=== PATIENT | female | born 1970 | race Caucasian/White ===

== ENCOUNTER 2023-03-02 18:44 | Inpatient (IN) ==
--- NOTE | 2023-03-02 19:01 | Emergency Department Note ---
Impression & Plan Multiple sclerosis, Facial droop, Hypokalemia ED Provider Note NAME: TIP GLORIA AGE: 52 SEX: F : 1970 ARRIVES VIA: Walk-In INFORMANT: Patient ED PROVIDER(S): Manan Wilcox DO CHIEF COMPLAINT: right facial droop HPI: Patient is a 52-year-old female with a past medical history of MS who follows with Dr. Pascal that presents to the ER for right-sided facial droop which started today around 2 PM. She notes she has had a ringing in the buzzing in her right ear for the past 2 days. She does have a headache on the right side as well. Denies any change or loss of vision. She notes her dropfoot on the left is worse. No chest pain or shortness of breath. No nausea, vomiting or but does admit to intermittent diarrhea. No dysuria, urgency, or frequency. No other exacerbating or remitting factors. PAST MEDICAL HISTORY:See Below PAST SURGICAL HISTORY:See Below FAMILY HISTORY:See Below SOCIAL HISTORY:See Below HOME MEDICATIONS:See Below ALLERGIES:See Below VITALS:See Below PHYSICAL EXAMINATION: GENERAL: Sitting up in bed, alert, well appearing, well nourished, no distress, non-toxic EYE EXAM: normal conjunctiva. PERRL and EOM's grossly intact. OROPHARYNX: no exudate, no erythema, lips, buccal mucosa, and tongue normal and mucous membranes are moist NECK: supple, no nuchal rigidity, no adenopathy, non-tender LUNGS: Clear to auscultation. Normal chest wall mechanics HEART: no murmurs, S1 normal and S2 normal ABDOMEN: abdomen soft, non-tender, normo-active bowel sounds, no masses, no rebound or guarding. BACK: Back is symmetrical on inspection and there is no deformity, no midline tenderness, no CVA tenderness. SKIN: no rashes and no bruising UPPER EXTREMITIES: upper extremities are grossly normal. LOWER EXTREMITIES: No pitting edema. NEURO EXAM: Normal sensorium, cranial nerves II-XII with a right-sided facial droop, able to lift forehead and eyebrows symmetrically and able to close eyes, normal speech, no weakness of arms, no weakness within the legs with the exception of plantar and dorsiflexion of the left ankle she is a 3 out of 5. No drift. Finger to nose intact. Gross sensation intact. MEDICAL DECISION MAKING: Patient is a 52-year-old female who presents ER for right-sided facial droop which started at 2 PM today. She also notes that she is having weakness in the left foot with plantar dorsiflexion which is gradually getting worse. She does have a history of antibiotics. On exam she is otherwise neurologically intact. She is out of the window consequently stroke alert was not called. External records were reviewed. Labs show no significant leukocytosis or anemia. BMP with mild hypokalemia 3.3. LFTs bilirubin was unremarkable. Troponin was negative. Lyme and COVID were negative. Discussed with neurology which was delayed as they had a stroke alert. They agreed with the work-up and further evaluation and admission. Discussed with Dr. Harris for admission. Triage Nursing notes reviewed. Limited review of prior medical records performed Vital Signs: reviewed and remarkable for no significant abnormalities Differential diagnosis: Differential Diagnosis includes but is not limited to ischemic Stroke, hemorrhagic stroke, bells palsy, mass, neoplasm, migraine headache, seizure, subarachnoid hemorrhage, TIA, and transient global amnesia. ER treatment provided: See below Diagnostics interpreted by me include EKG and cardiac monitoring as listed below: -Cardiac Monitoring: An order was placed for continuous cardiac monitoring. The monitor shows a rate of 80 with sinus rhythm. -ECG: Sinus rhythm rate 84 Left axis No PVCs QTc 515 -Laboratory studies:Interpreted by me as stated above in MDM and shown below. Imaging studies: Xrays: As interpreted by me: Portable AP upright 1 view of the chest shows no pneumonia CTs show: CT angios of the head and neck were negative Consultation(s): As described in MDM Procedures:none Critical Care: None Past Med/Surg History Social History Smoking Status: Former smoker Preferred Language: Turkmen Feels Safe at Home: Yes Allergies Allergies Allergy/AdvReac Type Severity Reaction Status Date / Time adhesive tape Allergy Unknown Unknown Verified 03/02/23 21:03 cephalexin Allergy Unknown Unknown Verified 03/02/23 21:03 ciprofloxacin Allergy Unknown Unknown Verified 03/02/23 21:03 diazepam Allergy Unknown Unknown Verified 03/02/23 22:38 latex Allergy Unknown Unknown Verified 03/02/23 21:03 prednisone Allergy Unknown Unknown Verified 03/02/23 22:38 red dye Allergy Unknown Unknown Verified 03/02/23 21:03 Home Meds Home Medications Medication Instructions Recorded Confirmed Apple Cider Vinegar Liquid 2 tbsp PO QAM 03/02/23 03/02/23 cholecalciferol (vitamin D3) 50 50 mcg PO QAM 03/02/23 03/02/23 mcg (2,000 unit) tablet cyanocobalamin (vitamin B-12) 5,000 mcg sublingual QAM 03/02/23 03/02/23 5,000 mcg/mL sublingual drops (Vitamin B-12) loratadine 10 mg tablet (Claritin) 10 mg PO QAM 03/02/23 03/02/23 modafinil 100 mg tablet 100 mg PO QAM 03/02/23 03/02/23 nortriptyline 25 mg capsule 25 mg PO HS 03/02/23 03/02/23 ocrelizumab 30 mg/mL intravenous 0 mg IV .EVERY 6 MONTHS 03/02/23 03/02/23 solution (Ocrevus) omeprazole 40 mg capsule,delayed 40 mg PO QAM 03/02/23 03/02/23 release prenat.vits,adolph,ssz-wyeo-mbtlg 1 tab PO QAM 03/02/23 03/02/23 ropinirole 2 mg tablet 2 mg PO UD 03/02/23 03/02/23 rosuvastatin 20 mg tablet 20 mg PO HS 03/02/23 03/02/23 sumatriptan succinate 50 mg tablet 50 mg PO UD PRN Migraine Headache 03/02/23 03/02/23 topiramate 200 mg tablet 200 mg PO UD 03/02/23 03/02/23 Results & Data (ED) Vital Signs Vital Signs - 24 hr 03/02/23 18:46 03/02/23 19:34 03/02/23 20:16 Temperature 36.2 C L Temperature Source Temporal Artery Scan Pulse Rate 99 H 85 81 Pulse Rhythm Regular Pulse Strength Normal Respiratory Rate 20 18 Respiratory Effort / Characteristics Non-Labored Spontaneous Respiratory Depth Normal Respiratory Pattern Regular Blood Pressure 142/104 H 121/78 Blood Pressure Mean 116 92 Blood Pressure Position Sitting Pulse Oximetry 99 95 Oxygen Delivery Method Room Air Room Air Sepsis Recent Fever Within 48 Hours No Sepsis New/Unexplained Change in Mental Status No Sepsis Action Taken by Nursing No Action Required 03/02/23 21:55 Temperature Temperature Source Pulse Rate 81 Pulse Rhythm Pulse Strength Respiratory Rate 18 Respiratory Effort / Characteristics Respiratory Depth Respiratory Pattern Blood Pressure 110/75 Blood Pressure Mean 86 Blood Pressure Position Pulse Oximetry 100 Oxygen Delivery Method Room Air Sepsis Recent Fever Within 48 Hours Sepsis New/Unexplained Change in Mental Status Sepsis Action Taken by Nursing Laboratory Data 03/02/23 19:14 03/02/23 19:14 Lab Results 03/02/23 03/02/23 03/02/23 Range/Units 19:14 19:14 19:14 WBC 6.36 (4.8-10.8) K/ul RBC 3.93 L (4.20-5.40) M/uL Hgb 13.0 (12.0-16.0) g/dl Hct 36.3 L (37.0-47.0) % MCV 92.4 (80.0-100.0) fL MCH 33.1 (25.0-34.0) pg MCHC 35.8 (32.0-36.0) g/dL RDW Std Deviation 39.1 (36.4-46.3) fL RDW Coeff of Pina 11.4 L (11.5-14.5) % Plt Count 283 (130-400) K/uL MPV 10.3 (9.4-12.4) fL Immature Gran % (Auto) 0.2 % Neut % (Auto) 55.5 % Lymph % (Auto) 34.3 % [place] % (Auto) 9.1 % Eos % (Auto) 0.6 % Baso % (Auto) 0.3 % Neut # (Auto) 3.53 (1.40-6.50) K/uL Lymph # (Auto) 2.18 (1.2-3.4) K/uL [place] # (Auto) 0.58 (0.11-0.59) K/uL Eos # (Auto) 0.04 (0-0.50) K/uL Baso # (Auto) 0.02 (0-0.2) K/uL Immature Gran # (Auto) 0.01 (0.01-0.20) K/uL PT 12.4 H (9.0-12.0) Seconds INR 1.1 (0.9-1.1) APTT 25.9 (21.0-31.0) Seconds PTT Ratio 0.9 Sodium 135 L (136-145) mmol/L Potassium 3.3 L (3.5-5.1) mmol/L Chloride 105 (98-107) mmol/L Carbon Dioxide 22 (21-32) mmol/L Anion Gap 8 (3-11) BUN 7 (6-23) mg/dl Creatinine 0.77 (0.6-1.2) mg/dl Est Cr Clr Drug Dosing 72.3 ml/min Est GFR ( Amer) 104.3 ml/min Est GFR (Non-Af Amer) 90.0 ml/min BUN/Creatinine Ratio 9.1 L (10-20) Glucose 100 H (70-99(Fasting)) mg/dl POC Glucose (70-99) mg/dl Calcium 9.2 (8.6-10.3) mg/dl Magnesium 2.0 (1.7-2.4) mg/dl Total Bilirubin 0.3 (0.2-1.0) mg/dl AST 18 (13-39) U/L ALT 18 (7-52) U/L Alkaline Phosphatase 84 (34-104) U/L Troponin I High Sens < 2.3 (0-14) pg/ml Total Protein 6.9 (6.0-8.3) gm/dl Albumin 4.4 (3.4-5.0) gm/dl Globulin 2.5 (2.5-4.0) gm/dl Albumin/Globulin Ratio 1.8 (0.9-2) Lyme Disease IgG Ab (Negative) Lyme Disease IgM Ab (Negative) SARS-CoV-2, RNA, NAAT (NEGATIVE) 03/02/23 03/02/23 03/02/23 Range/Units 19:14 19:40 21:25 WBC (4.8-10.8) K/ul RBC (4.20-5.40) M/uL Hgb (12.0-16.0) g/dl Hct (37.0-47.0) % MCV (80.0-100.0) fL MCH (25.0-34.0) pg MCHC (32.0-36.0) g/dL RDW Std Deviation (36.4-46.3) fL RDW Coeff of Pina (11.5-14.5) % Plt Count (130-400) K/uL MPV (9.4-12.4) fL Immature Gran % (Auto) % Neut % (Auto) % Lymph % (Auto) % [place] % (Auto) % Eos % (Auto) % Baso % (Auto) % Neut # (Auto) (1.40-6.50) K/uL Lymph # (Auto) (1.2-3.4) K/uL [place] # (Auto) (0.11-0.59) K/uL Eos # (Auto) (0-0.50) K/uL Baso # (Auto) (0-0.2) K/uL Immature Gran # (Auto) (0.01-0.20) K/uL PT (9.0-12.0) Seconds INR (0.9-1.1) APTT (21.0-31.0) Seconds PTT Ratio Sodium (136-145) mmol/L Potassium (3.5-5.1) mmol/L Chloride (98-107) mmol/L Carbon Dioxide (21-32) mmol/L Anion Gap (3-11) BUN (6-23) mg/dl Creatinine (0.6-1.2) mg/dl Est Cr Clr Drug Dosing ml/min Est GFR ( Amer) ml/min Est GFR (Non-Af Amer) ml/min BUN/Creatinine Ratio (10-20) Glucose (70-99(Fasting)) mg/dl POC Glucose 103 H (70-99) mg/dl Calcium (8.6-10.3) mg/dl Magnesium (1.7-2.4) mg/dl Total Bilirubin (0.2-1.0) mg/dl AST (13-39) U/L ALT (7-52) U/L Alkaline Phosphatase (34-104) U/L Troponin I High Sens (0-14) pg/ml Total Protein (6.0-8.3) gm/dl Albumin (3.4-5.0) gm/dl Globulin (2.5-4.0) gm/dl Albumin/Globulin Ratio (0.9-2) Lyme Disease IgG Ab Negative (Negative) Lyme Disease IgM Ab Negative (Negative) SARS-CoV-2, RNA, NAAT NEGATIVE (NEGATIVE) Administered Medications Potassium Chloride/Sodium Chloride (Normal Saline W/20 Meq Kcl) 20 meq in 1,000 mls @ 100 mls/hr IV .Q10H STA; Protocol Stop: 03/03/23 07:42 Last Admin: 03/02/23 21:53 Dose: 100 mls/hr Documented By: CHRIS Discontinued Medications Ioversol (Optiray 320 500ml) 118 ml IV ONCE ONE Stop: 03/02/23 19:30 Last Admin: 03/02/23 19:30 Dose: 118 ml Documented By: HARRISON Ketorolac Tromethamine (Ketorolac Tromethamine 15 Mg/Ml Vial) 15 mg IV NOW ONE Stop: 03/02/23 20:59 Last Admin: 03/02/23 21:00 Dose: 15 mg Documented By: CHRSI Imaging Data Radiologist's Impression: Head CT 03/02/23 18:59 CT angio head w con, CT head/brain wo con, CT angio neck with con CLINICAL HISTORY: 52 years-old Female with neuro deficit, acute stroke s uspected. Acute strokelike symptoms COMPARISON STUDY: None TECHNIQUE: Unenhanced axial CT scan of the brain is performed. Subsequently, following the IV administration of 118 cc of Optiray, CT angiogram of the head and neck was performed from the aortic arch to the skull apex. Images are reviewed in the axial, sagittal, and coronal planes. 3-D MIPS images are created and assessed. IV contrast was administered without complication. All measur ements were obtained according to NASCET criteria. A dose lowering technique was utilized adhering to the principles of ALARA. CT DOSE: 990.40 mGy.cm FINDINGS: CT BRAIN: There is no acute intracranial hemorrhage, midline shift, hydrocephalus, intracranial mass, territorial ischemia or abnormal extra-axial collections. No abnormal intra-axial or extra-axial enhancement. Mastoid air cells and middle ear cavities are clear. Mild nonspecific white matter hypodensities. Prior suboccipital craniectomy. No calvarial fracture. Paranasal sinuses are clear. CT ANGIOGRAM OF THE HEAD AND NECK: Ectasia of the ascending thoracic aorta, 3.8 cm. Common carotid arteries are patent. Atheromatous plaque of the carotid bulbs results in less than 50% stenosis bilaterally, right greater than left. The bilateral anterior and middle cerebral arteries are also patent. The vertebrobasilar system and posterior cerebral arteries are widely patent. 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 There is no aneurysm, high-grade stenosis, or proximal branch occlusion identified. Dural sinuses appear patent. Lung apices are clear. Unremarkable soft tissues. Mastoid air cells are clear. No acute fracture. IMPRESSION: 1. No acute intracranial abnormality. 2. Prior suboccipital craniectomy. 3. Unremarkable CTA of the head and neck. 4. Fenestrated basilar artery. ACT 112: Negative or not required by law. The above report was generated using voice recognition software. It may contain grammatical, syntax or spelling errors. Electronically signed by: Nitin Booker M.D. 03/02/2023 7:44 PM Head CTA 03/02/23 18:59 CT angio head w con, CT head/brain wo con, CT angio neck with con CLINICAL HISTORY: 52 years-old Female with neuro deficit, acute stroke suspected. Acute strokelike symptoms COMPARISON STUDY: None TECHNIQUE: Unenhanced axial CT scan of the brain is performed. Subsequently, following the IV administration of 118 cc of Optiray, CT angiogram of the head and neck was performed from the aortic arch to the skull apex. Images are reviewed in the axial, sagittal, and coronal planes. 3-D MIPS images are created and assessed. IV contrast was administered without complication. All measurements were obtained according to NASCET criteria. A dose lowering technique was utilized adhering to the principles of ALARA. CT DOSE: 990.40 mGy.cm FINDINGS: CT BRAIN: There is no acute intracranial hemorrhage, midline shift, hydrocephalus, intracranial mass, territorial ischemia or abnormal extra-axial collections. No abnormal intra-axial or extra-axial enhancement. Mastoid air cells and middle ear cavities are clear. Mild nonspecific white matter hypodensities. Prior suboccipital craniectomy. No calvarial fracture. Paranasal sinuses are clear. CT ANGIOGRAM OF THE HEAD AND NECK: Ectasia of the ascending thoracic aorta, 3.8 cm. Common carotid arteries are patent. Atheromatous plaque of the carotid bulbs results in less than 50% stenosis bilaterally, right greater than left. The bilateral anterior and middle cerebral arteries are also patent. The vertebrobasilar system and posterior cerebral arteries are widely patent. 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 There is no aneurysm, high-grade stenosis, or proximal branch occlusion identified. Dural sinuses appear patent. Lung apices are clear. Unremarkable soft tissues. Mastoid air cells are clear. No acute fracture. IMPRESSION: 1. No acute intracranial abnormality. 2. Prior suboccipital craniectomy. 3. Unremarkable CTA of the head and neck. 4. Fenestrated basilar artery. ACT 112: Negative or not required by law. The above report was generated using voice recognition software. It may contain grammatical, syntax or spelling errors. Electronically signed by: Nitin Booker M.D. 03/02/2023 7:44 PM Neck CTA 03/02/23 18:59 CT angio head w con, CT head/brain wo con, CT angio neck with con CLINICAL HISTORY: 52 years-old Female with neuro deficit, acute stroke suspe cted. Acute strokelike symptoms COMPARISON STUDY: None TECHNIQUE: Unenhanced axial CT scan of the brain is performed. Subsequently, following the IV administration of 118 cc of Optiray, CT angiogram of the head and neck was performed from the aortic arch to the skull apex. Images are reviewed in the axial, sagittal, and coronal planes. 3-D MIPS images are created and assessed. IV contrast was administered without complication. All measuremen ts were obtained according to NASCET criteria. A dose lowering technique was utilized adhering to the principles of ALARA. CT DOSE: 990.40 mGy.cm FINDINGS: CT BRAIN: There is no acute intracranial hemorrhage, midline shift, hydrocephalus, intracranial mass, territorial ischemia or abnormal extra-axial collections. No abnormal intra-axial or extra-axial enhancement. Mastoid air cells and middle ear cavities are clear. Mild nonspecific white matter hypodensities. Prior suboccipital craniectomy. No calvarial fracture. Paranasal sinuses are clear. CT ANGIOGRAM OF THE HEAD AND NECK: Ectasia of the ascending thoracic aorta, 3.8 cm. Common carotid arteries are patent. Atheromatous plaque of the carotid bulbs results in less than 50% stenosis bilaterally, right greater than left. The bilateral anterior and middle cerebral arteries are also patent. The vertebrobasilar system and posterior cerebral arteries are widely patent. 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 There is no aneurysm, high-grade stenosis, o r proximal branch occlusion identified. Dural sinuses appear patent. Lung apices are clear. Unremarkable soft tissues. Mastoid air cells are clear. No acute fracture. IMPRESSION: 1. No acute intracranial abnormality. 2. Prior suboccipital craniectomy. 3. Unremarkable CTA of the head and neck. 4. Fenestrated basilar artery. ACT 112: Negative or not required by law. The above report was generated using voice recognition software. It may contain grammatical, syntax or spelling errors. Electronically signed by: Nitin Booker M.D. 03/02/2023 7:44 PM Discharge Plan Visit Data Chief Complaint: Neuro Symptoms/Deficit Stated Complaint: RINGING IN EARS, HEAD PAIN, ED Provider: Manan Wilcox Discharge Problem: Multiple sclerosis, Facial droop, Hypokalemia Patient Disposition: Admitted As Inpatient Discharge Instructions Interventions: ED Discharge Assessment Last Done: 03/02/23 23:14 Forms Stand Alone Forms: [facility] Prescriptions Prescriptions: No Action omeprazole 40 mg capsule,delayed release(DR/EC) 40 mg PO QAM nortriptyline 25 mg capsule 25 mg PO HS modafinil 100 mg tablet 100 mg PO QAM rosuvastatin 20 mg tablet 20 mg PO HS cholecalciferol (vitamin D3) 50 mcg (2,000 unit) tablet 50 mcg PO QAM sumatriptan succinate 50 mg tablet 50 mg PO UD PRN (Reason: Migraine Headache) ropinirole 2 mg tablet 2 mg PO UD Rx Instructions: take 2 mg at 3 pm and then again at bedtime topiramate 200 mg tablet 200 mg PO UD Rx Instructions: take 1 tablet in the morning and take 2 tablets at bedtime loratadine [Claritin] 10 mg Tablet 10 mg PO QAM Ocrevus 30 mg/mL Solution 0 mg IV .EVERY 6 MONTHS Rx Instructions: dose unknown Apple Cider Vinegar Liquid 2 tbsp PO QAM Vitamin Tablet 1 tab PO QAM Vitamin B-12 5,000 mcg/mL Drops 5,000 mcg SUBLINGUAL QAM Referrals Referrals: Saundra Nicholson C.R.N.P. [Primary Care Provider] -
[2023-03-02] MEDS ORDERED: OPTIRAY 320 500ml IV ONE (19:29)
[2023-03-02 19:34] LABS: Basophils # (auto) 0.02 K/uL (0-0.2); Basophils % (auto) 0.3 %; Eosinophils # (auto) 0.04 K/uL (0-0.50); Eosinophils % (auto) 0.6 %; Hematocrit (blood only) 36.3 % (37.0-47.0); Immature Granulocytes # (auto) 0.01 K/uL (0.01-0.20); Immature Granulocytes % (auto) 0.2 %; Lymphocytes # (auto) 2.18 K/uL (1.2-3.4); Lymphocytes % (auto) 34.3 %; Mean Corpuscular Hemoglobin 33.1 pg (25.0-34.0); Mean Corpuscular Hgb Conc 35.8 g/dL (32.0-36.0); Mean Corpuscular Volume 92.4 fL (80.0-100.0); Mean Platelet Volume 10.3 fL (9.4-12.4); Monocytes # (auto) 0.58 K/uL (0.11-0.59); Monocytes % (auto) 9.1 %; Neutrophils # (auto) 3.53 K/uL (1.40-6.50); Neutrophils % (auto) 55.5 %; Platelet Count 283 K/uL (130-400); RDW Coefficient of Variation 11.4 % (11.5-14.5); RDW Standard Deviation 39.1 fL (36.4-46.3); Red Blood Count 3.93 M/uL (4.20-5.40); White Blood Count 6.36 K/ul (4.8-10.8)
--- NOTE | 2023-03-02 19:46 | CT Scan Report ---
CT angio head w con, CT head/brain wo con, CT angio neck with con CLINICAL HISTORY: 52 years-old Female with neuro deficit, acute stroke suspected. Acute strokelike symptoms COMPARISON STUDY: None TECHNIQUE: Unenhanced axial CT scan of the brain is performed. Subsequently, following the IV adminis tration of 118 cc of Optiray, CT angiogram of the head and neck was performed from the aortic arch to the skull apex. Images are reviewed in the axial, sagittal, and coronal planes. 3-D MIPS images are created and assessed. IV contrast was administered without complication. All measurements were obtain ed according to NASCET criteria. A dose lowering technique was utilized adhering to the principles of ALARA. CT DOSE: 990.40 mGy.cm FINDINGS: CT BRAIN: There is no acute intracranial hemorrhage, midline shift, hydrocephalus, intracranial mass, territori al ischemia or abnormal extra-axial collections. No abnormal intra-axial or extra-axial enhancement. Mastoid air cells and middle ear cavities are clear. Mild nonspecific white matter hypodensities. Pr ior suboccipital craniectomy. No calvarial fracture. Paranasal sinuses are clear. CT ANGIOGRAM OF THE HEAD AND NECK: Ectasia of the ascending thoracic aorta, 3.8 cm. Common carotid arteries are patent. Atheromatous ami que of the carotid bulbs results in less than 50% stenosis bilaterally, right greater than left. The bilateral anterior and middle cerebral arteries are also patent. The vertebrobasilar system and poste rior cerebral arteries are widely patent. Fenestrated basilar artery. origin of the left director of diversity and inclusion ior cerebral artery. There is no aneurysm, high-grade stenosis, or proximal branch occlusion identifi ed. Dural sinuses appear patent. Lung apices are clear. Unremarkable soft tissues. Mastoid air cells are clear. No acute fracture. IMPRESSION: 1. No acute intracranial abnormality. 2. Prior suboccipital craniectomy. 3. Unremarkable CTA of the head and neck. 4. Fenestrated basilar artery. ACT 112: Negative or not required by law. The above report was generated using voice recognition software. It may contain grammatical, syntax o r spelling errors. Electronically signed by: Nitin Booker M.D. 03/02/2023 7:44 PM
[2023-03-02 19:47] LABS: Alanine Aminotransferase 18 U/L (7-52); Albumin Globulin Ratio 1.8 (0.9-2); Albumin Level 4.4 gm/dl (3.4-5.0); Alkaline Phosphatase 84 U/L (34-104); Anion Gap 8 (3-11); Aspartate Aminotransferase 18 U/L (13-39); BUN Creatinine Ratio 9.1 (10-20); Bilirubin,Total 0.3 mg/dl (0.2-1.0); Blood Urea Nitrogen 7 mg/dl (6-23); Calcium 9.2 mg/dl (8.6-10.3); Carbon Dioxide 22 mmol/L (21-32); Chloride 105 mmol/L (98-107); Creatinine Clr Calc Pharmacy 72.3 ml/min; Est GFR (African American) 104.3 ml/min; Globulin 2.5 gm/dl (2.5-4.0); Glucose 100 mg/dl (70-99(Fasting)); Potassium 3.3 mmol/L (3.5-5.1); Sodium 135 mmol/L (136-145); Total Protein 6.9 gm/dl (6.0-8.3)
[2023-03-02 19:54] LABS: Troponin I High Sensitivity < 2.3 pg/ml (0-14)
[2023-03-02 19:57] LABS: INR 1.1 (0.9-1.1); Partial Thromboplastin Ratio 0.9; Partial Thromboplastin Time 25.9 Seconds (21.0-31.0); Prothrombin Time 12.4 Seconds (9.0-12.0)
[2023-03-02 20:17] LABS: Lyme Ab IgG w/WB Rflx Negative (Negative); Lyme Ab IgM w/WB Rflx Negative (Negative)
[2023-03-02] MEDS ORDERED: KETOROLAC TROMETHAMINE 15 MG/ML VIAL IV ONE (20:58)
[2023-03-02] MEDS ORDERED: NSS + 20MEQ KCL 20 MEQ/1,000 ML BAG IV STA (21:43)
--- NOTE | 2023-03-02 22:29 | Communication Note ---
Date of Service: March 02, 2023 52 F with MS and epilepsy in [facility] ED for progressive worsening of L foot drop and development of R facial droop, first noted this afternoon. Foot drop is chr onic and has been gradually worsening over a period of days, whereas the facial droop is entirely new; it's unclear if it has worsened since she first noticed it. Follows with Dr. Pirce for MS and is on Ocrevus. No urinary symptoms or other symptoms of infection. CT shows patchy white matter changes consistent with known history of MS but no clear early infarct signs. CTA shows patent vessels with minimal athero. Impression: MS flare vs stroke (less likely). - ASA 324mg in ED - MRI brain w/wo contrast
[2023-03-02] MEDS ORDERED: AMPICILLIN/SULBACTAM SOD 3,000 MG in 0.9 % SODIUM CHLORIDE 100 ML IV STA (22:30)
--- NOTE | 2023-03-02 22:30 | History & Physical Report ---
Date of Service March 02, 2023 Assessment & Plan (1) Facial droop: Plan: Right facial droop Possible MS flareup secondary to dental infection, otitis media right hx MS on Ocrevus seizure disorder, stable on regimen Arnold-Chiari malformation status post surgery Chronic LBBB hx GERD on PPI hx migraine hx RLS Hypokalemia past tobacco abuse Med telemetry Neurochecks Unasyn followed by Augmentin course for dental infection and otitis media right Outpatient dental evaluation for carious teeth Neurology consult Re: Right facial droop (ER provider already in touch with Dr. Ar[place] [facility] [place] Replace potassium DVT prophylaxis. Lovenox subcu Full code ADDENDUM : Case discussed with Dr. Arroyo. He agrees with treating infection as causative factor for MS recrudescence. Hold off for now on steroid Rx and earlier recommendations for aspirin and MRI for stroke work-up. Text document was generated using [employer] voice recognition software. It may contain grammatical or spelling errors. Kindly contact undersigned for clarification of any documentation item in question. History of Present Illness Chief Complaint: Right facial droop Primary Care Provider: JESSICA Marinelli History obtained from patient, family, and records. Medical history significant for MS on Ocrevus, seizure disorder, Arnold-Chiari malformation status post surgery, chronic LBBB, GERD, migraine, chronic left foot drop, endometriosis status post surgery, RLS, past tobacco abuse. Few days ago, patient noted otalgia and tinnitus right ear without otorrhea. Associated right-sided headache symptoms. Headache different from usual migraine attack. Recent swimming activity with family. Patient also noted worsening dental pain from carious teeth especially right posterior upper molar. This afternoon, patient noted right sided facial droop and some slurred speech similar to MS flareup in the past. Left foot drop weaker than usual. Patient denies chest pain, SOB symptoms. Patient brought by partner to the ER for evaluation. 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 Allergies Allergy/AdvReac Type Severity Reaction Status Date / Time adhesive tape Allergy Unknown Unknown Verified 03/02/23 21:03 cephalexin Allergy Unknown Unknown Verified 03/02/23 21:03 ciprofloxacin Allergy Unknown Unknown Verified 03/02/23 21:03 diazepam Allergy Unknown Unknown Verified 03/02/23 22:38 latex Allergy Unknown Unknown Verified 03/02/23 21:03 prednisone Allergy Unknown Unknown Verified 03/02/23 22:38 red dye Allergy Unknown Unknown Verified 03/02/23 21:03 Home Medications Medication Instructions Recorded Confirmed Type Apple Cider Vinegar Liquid 2 tbsp PO QAM 03/02/23 03/02/23 History cholecalciferol (vitamin D3) 50 50 mcg PO QAM 03/02/23 03/02/23 History mcg (2,000 unit) tablet cyanocobalamin (vitamin B-12) 5,000 mcg sublingual QAM 03/02/23 03/02/23 History 5,000 mcg/mL sublingual drops (Vitamin B-12) loratadine 10 mg tablet (Claritin) 10 mg PO QAM 03/02/23 03/02/23 History modafinil 100 mg tablet 100 mg PO QAM 03/02/23 03/02/23 History nortriptyline 25 mg capsule 25 mg PO HS 03/02/23 03/02/23 History ocrelizumab 30 mg/mL intravenous 0 mg IV .EVERY 6 MONTHS 03/02/23 03/02/23 History solution (Ocrevus) omeprazole 40 mg capsule,delayed 40 mg PO QAM 03/02/23 03/02/23 History release prenat.vits,adolph,[id number] 1 tab PO QAM 03/02/23 03/02/23 History ropinirole 2 mg tablet 2 mg PO UD 03/02/23 03/02/23 History rosuvastatin 20 mg tablet 20 mg PO HS 03/02/23 03/02/23 History sumatriptan succinate 50 mg tablet 50 mg PO UD PRN Migraine Headache 03/02/23 03/02/23 History topiramate 200 mg tablet 200 mg PO UD 03/02/23 03/02/23 History Past Med/Surg History Social History Smoking Status: Former smoker Smoking End Date: 2 years; Second Hand Exposure: No; Do You Dip or Chew Tobacco: No; Tobacco Cessation Education Requested by Patient: No Hx Alcohol Use: No Hx Substance Use: Yes Last Used Substance: Hours (ago) Last Used Substance O ther:: 03/01/23 Evening Substance Use Type Other:: Medical Marijuana Preferred Language: Prydein[place] Communication Ability: Effective Claim Attorney Required: No Beliefs That Will Affect Care: None Current Living Situation: Other Current Living Situation Comment: Lives with a friend Other Information That Helps Us Care for You: No Feels Safe at Home: Yes Safety Concerns: Feels Safe At This Time Assistive Devices: Cane and Walker Assistive Devices Comment: As needed for MS Review of Systems Review of Systems: As per HPI, all other systems reviewed and negative Physical Exam Physical Exam: GENERAL: Comfortable, slightly anxious, mild dysarthria, no respiratory distress SKIN: Normal color, warm HEENT: [place] palpebral conjunctivae, no ptosis, right facial asymmetry, dry buccal mucosa, carious dentition, carious right posterior maxillary molar; dull TM right without discharge NECK : Supple, no tenderness CHEST : CTA, no tenderness HEART : RRR, no obvious murmurs ABDOMEN: Some distention, nontender EXTREMITIES : No LE swelling/tenderness, no other conspicuous deformities noted NEUROLOGIC : Coherent, right facial asymmetry, dysarthric, gait and stance not assessed Results & Data Results & Data Vital Signs (Past 12 Hours) Vital Signs Temp Pulse Resp BP Pulse Ox O2 Del Method 03/02/23 21:55 81 18 110/75 100 Room Air 03/02/23 20:16 81 18 121/78 95 Room Air 03/02/23 19:34 85 03/02/23 18:46 36.2 C L 99 H 20 142/104 H 99 Room Air Laboratory Results Laboratory Results WBC 6.36 K/ul (4.8-10.8) 03/02/23 19:14 RBC 3.93 M/uL (4.20-5.40) L 03/02/23 19:14 Hgb 13.0 g/dl (12.0-16.0) 03/02/23 19:14 Hct 36.3 % (37.0-47.0) L 03/02/23 19:14 MCV 92.4 fL (80.0-100.0) 03/02/23 19:14 MCH 33.1 pg (25.0-34.0) 03/02/23 19:14 MCHC 35.8 g/dL (32.0-36.0) 03/02/23 19:14 RDW Std Deviation 39.1 fL (36.4-46.3) 03/02/23 19:14 RDW Coeff of Pina 11.4 % (11.5-14.5) L 03/02/23 19:14 Plt Count 283 K/uL (130-400) 03/02/23 19:14 MPV 10.3 fL (9.4-12.4) 03/02/23 19:14 Immature Gran % (Auto) 0.2 % 03/02/23 19:14 Neut % (Auto) 55.5 % 03/02/23 19:14 Lymph % (Auto) 34.3 % 03/02/23 19:14 [place] % (Auto) 9.1 % 03/02/23 19:14 Eos % (Auto) 0.6 % 03/02/23 19:14 Baso % (Auto) 0.3 % 03/02/23 19:14 Neut # (Auto) 3.53 K/uL (1.40-6.50) 03/02/23 19:14 Lymph # (Auto) 2.18 K/uL (1.2-3.4) 03/02/23 19:14 [place] # (Auto) 0.58 K/uL (0.11-0.59) 03/02/23 19:14 Eos # (Auto) 0.04 K/uL (0-0.50) 03/02/23 19:14 Baso # (Auto) 0.02 K/uL (0-0.2) 03/02/23 19:14 Immature Gran # (Auto) 0.01 K/uL (0.01-0.20) 03/02/23 19:14 PT 12.4 Seconds (9.0-12.0) H 03/02/23 19:14 INR 1.1 (0.9-1.1) 03/02/23 19:14 APTT 25.9 Seconds (21.0-31.0) 03/02/23 19:14 PTT Ratio 0.9 03/02/23 19:14 Sodium 135 mmol/L (136-145) L 03/02/23 19:14 Potassium 3.3 mmol/L (3.5-5.1) L 03/02/23 19:14 Chloride 105 mmol/L (98-107) 03/02/23 19:14 Carbon Dioxide 22 mmol/L (21-32) 03/02/23 19:14 Anion Gap 8 (3-11) 03/02/23 19:14 BUN 7 mg/dl (6-23) 03/02/23 19:14 Creatinine 0.77 mg/dl (0.6-1.2) 03/02/23 19:14 Est Cr Clr Drug Dosing 72.3 ml/min 03/02/23 19:14 Est GFR ( Amer) 104.3 ml/min 03/02/23 19:14 Est GFR (Non-Af Amer) 90.0 ml/min 03/02/23 19:14 BUN/Creatinine Ratio 9.1 (10-20) L 03/02/23 19:14 Glucose 100 mg/dl (70-99(Fasting)) H 03/02/23 19:14 POC Glucose 103 mg/dl (70-99) H 03/02/23 19:40 Calcium 9.2 mg/dl (8.6-10.3) 03/02/23 19:14 Magnesium 2.0 mg/dl (1.7-2.4) 03/02/23 19:14 Total Bilirubin 0.3 mg/dl (0.2-1.0) 03/02/23 19:14 AST 18 U/L (13-39) 03/02/23 19:14 ALT 18 U/L (7-52) 03/02/23 19:14 Alkaline Phosphatase 84 U/L (34-104) 03/02/23 19:14 Troponin I High Sens < 2.3 pg/ml (0-14) 03/02/23 19:14 Total Protein 6.9 gm/dl (6.0-8.3) 03/02/23 19:14 Albumin 4.4 gm/dl (3.4-5.0) 03/02/23 19:14 Globulin 2.5 gm/dl (2.5-4.0) 03/02/23 19:14 Albumin/Globulin Ratio 1.8 (0.9-2) 03/02/23 19:14 Lyme Disease IgG Ab Negative (Negative) 03/02/23 19:14 Lyme Disease IgM Ab Negative (Negative) 03/02/23 19:14 SARS-CoV-2, RNA, NAAT NEGATIVE (NEGATIVE) 03/02/23 21:[address] 03/02/23 18:59 CT angio head w con, CT head/brain wo con, CT angio neck with con CLINICAL HISTORY: 52 years-old Female with neuro deficit, acute stroke suspected. Acute strokelike symptoms COMPARISON STUDY: None TECHNIQUE: Unenhanced axial CT scan of the brain is performed. Subsequently, following the IV administration of 118 cc of Optiray, CT angiogram of the head and neck was performed from the aortic arch to the skull apex. Images are reviewed in the axial, sagittal, and coronal planes. 3-D MIPS images are created and assessed. IV contrast was administered without complication. All measurements were obtained according to NASCET criteria. A dose lowering technique was utilized adhering to the principles of ALARA. CT DOSE: 990.40 mGy.cm FINDINGS: CT BRAIN: There is no acute intracranial hemorrhage, midline shift, hydrocephalus, intracranial mass, territorial ischemia or abnormal extra-axial collections. No abnormal intra-axial or extra-axial enhancement. Mastoid air cells and middle ear cavities are clear. Mild nonspecific white matter hypodensities. Prior suboccipital craniectomy. No calvarial fracture. Paranasal sinuses are clear. CT ANGIOGRAM OF THE HEAD AND NECK: Ectasia of the ascending thoracic aorta, 3.8 cm. Common carotid arteries are patent. Atheromatous plaque of the carotid bulbs results in less than 50% stenosis bilaterally, right greater than left. The bilateral anterior and middle cerebral arteries are also patent. The vertebrobasilar system and posterior cerebral arteries are widely patent. 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 There is no aneurysm, high-grade stenosis, or proximal branch occlusion identified. Dural sinuses appear patent. Lung apices are clear. Unremarkable soft tissues. Mastoid air cells are clear. No acute fracture. IMPRESSION: 1. No acute intracranial abnormality. 2. Prior suboccipital craniectomy. 3. Unremarkable CTA of the head and neck. 4. Fenestrated basilar artery. ACT 112: Negative or not required by law. The above report was generated using voice recognition software. It may contain grammatical, syntax or spelling errors. Electronically signed by: Nitin Booker M.D. 03/02/2023 7:44 PM Head CTA 03/02/23 18:59 CT angio head w con, CT head/brain wo con, CT angio neck with con CLINICAL HISTORY: 52 years-old Female with neuro deficit, acute stroke suspected. Acute strokelike symptoms COMPARISON STUDY: None TECHNIQUE: Unenhanced axial CT scan of the brain is performed. Subsequently, following the IV administration of 118 cc of Optiray, CT angiogram of the head and neck was performed from the aortic arch to the skull apex. Images are reviewed in the axial, sagittal, and coronal planes. 3-D MIPS images are created and assessed. IV contrast was administered without complication. All measurements were obtained according to NASCET criteria. A dose lowering technique was utilized adhering to the principles of ALARA. CT DOSE: 990.40 mGy.cm FINDINGS: CT BRAIN: There is no acute intracranial hemorrhage, midline shift, hydrocephalus, intracranial mass, territorial ischemia or abnormal extra-axial collections. No abnormal intra-axial or extra-axial enhancement. Mastoid air cells and middle ear cavities are clear. Mild nonspecific white matter hypodensities. Prior suboccipital craniectomy. No calvarial fracture. Paranasal sinuses are clear. CT ANGIOGRAM OF THE HEAD AND NECK: Ectasia of the ascending thoracic aorta, 3.8 cm. Common carotid arteries are patent. Atheromatous plaque of the carotid bulbs results in less than 50% stenosis bilaterally, right greater than left. The bilateral anterior and middle cerebral arteries are also patent. The vertebrobasilar system and posterior cerebral arteries are widely patent. 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 There is no aneurysm, high-grade stenosis, or proximal branch occlusion identified. Dural sinuses appear patent. Lung apices are clear. Unremarkable soft tissues. Mastoid air cells are clear. No acute fracture. IMPRESSION: 1. No acute intracranial abnormality. 2. Prior suboccipital craniectomy. 3. Unremarkable CTA of the head and neck. 4. Fenestrated basilar artery. ACT 112: Negative or not required by law. The above report was generated using voice recognition software. It may contain grammatical, syntax or spelling errors. Electronically signed by: Nitin Booker M.D. 03/02/2023 7:44 PM Neck CTA 03/02/23 18:59 CT angio head w con, CT head/brain wo con, CT angio neck with con CLINICAL HISTORY: 52 years-old Female with neuro deficit, acute stroke suspected. Acute strokelike symptoms COMPARISON STUDY: None TECHNIQUE: Unenhanced axial CT scan of the brain is performed. Subsequently, following the IV administration of 118 cc of Optiray, CT angiogram of the head and neck was performed from the aortic arch to the skull apex. Images are reviewed in the axial, sagittal, and coronal planes. 3-D MIPS images are created and assessed. IV contrast was administered without complication. All measurements were obtained according to NASCET criteria. A dose lowering technique was utilized adhering to the principles of ALARA. CT DOSE: 990.40 mGy.cm FINDINGS: CT BRAIN: There is no acute intracranial hemorrhage, midline shift, hydrocephalus, intracranial mass, territorial ischemia or abnormal extra-axial collections. No abnormal intra-axial or extra-axial enhancement. Mastoid air cells and middle ear cavities are clear. Mild nonspecific white matter hypodensities. Prior suboccipital craniectomy. No calvarial fracture. Paranasal sinuses are clear. CT ANGIOGRAM OF THE HEAD AND NECK: Ectasia of the ascending thoracic aorta, 3.8 cm. Common carotid arteries are patent. Atheromatous plaque of the carotid bulbs results in less than 50% stenosis bilaterally, right greater than left. The bilateral anterior and middle cerebral arteries are also patent. The vertebrobasilar system and posterior cerebral arteries are widely patent. 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 There is no aneurysm, high-grade stenosis, or proximal branch occlusion identified. Dural sinuses appear patent. Lung apices are clear. Unremarkable soft tissues. Mastoid air cells are clear. No acute fracture. IMPRESSION: 1. No acute intracranial abnormality. 2. Prior suboccipital craniectomy. 3. Unremarkable CTA of the head and neck. 4. Fenestrated basilar artery. ACT 112: Negative or not required by law. The above report was generated using voice recognition software. It may contain grammatical, syntax or spelling errors. Electronically signed by: Nitin Booker M.D. 03/02/2023 7:44 PM Diagnostic Findings EKG as per my interpretation :Rate 85, NSR, LBBB
[2023-03-02] MEDS ORDERED: ASPIRIN 300 MG SUPP PR STA (23:06)
--- NOTE | 2023-03-02 23:11 | Communication Note ---
Date of Service: March 02, 2023 Contacted by admitting hospitalist Dr. Duarte re: Ms. Guaman. He reports that 1) she *has* had right facial droop with previous flares and 2) she currently has a dental infection. Review of her [facility] chart reveals she had right facial weakness with a flare in 2014 and that she has had other episodes since (flares vs recrudescence), including at least an episode in 2019. In light of these two points, as well as her own report of *gradually* worsening left foot drop over several days, her right facial weakness is likely due to recrudescence in the setting of a dental infection. Recommend treating the underlying infection. Would not start steroids, as this is probably not a true flare. Can discontinue aspirin. No urgent need for MRI. If symptoms persist in spite of treatment of underlying infection, can consider obtaining MRI brain w/wo.
[2023-03-02] MEDS ORDERED: LORazepam 0.5 MG TAB PO PRN (23:57)
[2023-03-02] MEDS ORDERED: PROMETHAZINE HCL 6.25 MG in SODIUM CHLORIDE 0.9% 50 ML IV PRN (23:57)
[2023-03-02] MEDS ORDERED: oxyCODONE HCL IR 5 MG TAB (IMMEDIATE RELEASE) PO PRN (23:57)
[2023-03-03] MEDS: ACETAMINOPHEN 325 MG TAB PO PRN ×2 (01:40→13:35)
[2023-03-03] MEDS: rOPINIRole HCL 2 MG TABLET PO SCH ×3 (02:13→20:07)
[2023-03-03] MEDS: NORTRIPTYLINE HCL 25 MG CAP PO SCH ×2 (02:14→20:07)
[2023-03-03] MEDS: TOPIRAMATE 100 MG TAB PO SCH ×3 (02:14→20:07)
[2023-03-03 04:27] LABS: Appearance Urine Clear (Clear); Bacteria Urine Automated Negative (Negative); Bilirubin Urine Negative (Negative); Blood Urine Negative (Negative); Cast Urine Automated 0 /lpf (0-5); Color Urine Yellow; Epithelial Cell Urine Auto 0-5 /lpf (0-5); Glucose Urine UA Negative (Negative); Ketones Urine Negative (Negative); Leukocyte Esterase Urine Trace (Negative); Nitrite Urine Negative (Negative); Protein Urine Negative (Negative); RBC Urine Automated 0-4 /hpf (0-4); Specific Gravity Urine 1.021 (1.000-1.030); Urobilinogen Urine Negative (Negative); pH Urine 7.5 (4.5-7.5)
[2023-03-03 07:08] LABS: Basophils # (auto) 0.03 K/uL (0-0.2); Basophils % (auto) 0.5 %; Eosinophils # (auto) 0.06 K/uL (0-0.50); Eosinophils % (auto) 1.1 %; Hemoglobin 12.4 g/dl (12.0-16.0); Immature Granulocytes # (auto) 0.01 K/uL (0.01-0.20); Immature Granulocytes % (auto) 0.2 %; Lymphocytes # (auto) 1.22 K/uL (1.2-3.4); Lymphocytes % (auto) 21.8 %; Mean Corpuscular Hemoglobin 33.1 pg (25.0-34.0); Mean Corpuscular Hgb Conc 35.4 g/dL (32.0-36.0); Mean Corpuscular Volume 93.3 fL (80.0-100.0); Mean Platelet Volume 10.4 fL (9.4-12.4); Monocytes # (auto) 0.43 K/uL (0.11-0.59); Monocytes % (auto) 7.7 %; Neutrophils # (auto) 3.85 K/uL (1.40-6.50); Neutrophils % (auto) 68.7 %; Platelet Count 250 K/uL (130-400); RDW Coefficient of Variation 11.7 % (11.5-14.5); RDW Standard Deviation 40.4 fL (36.4-46.3); Red Blood Count 3.75 M/uL (4.20-5.40)
[2023-03-03 07:33] LABS: BUN Creatinine Ratio 9.5 (10-20); Calcium 8.7 mg/dl (8.6-10.3); Creatinine Clr Calc Pharmacy 88.4 ml/min; Est GFR (African American) 121.2 ml/min; Est GFR (Non-African American) 104.6 ml/min; Potassium 3.5 mmol/L (3.5-5.1)
[2023-03-03] MEDS ORDERED: AMOXICILLIN/CLAVULANATE 875 MG TAB PO SCH (08:00)
--- NOTE | 2023-03-03 08:47 | XRay Report ---
XR chest 1V portable HISTORY: 52 years-old Female neuro deficit, acute stroke suspected acute shortness of breath COMPARISON: None TECHNIQUE: AP view of the chest FINDINGS: Cardiomediastinal and hilar silhouettes are within normal limits. No pneumothorax, pleural effusion, airspace consolidation or overt pulmonary edema. Bones appear grossly intact. IMPRESSION: No acute process. ACT 112: Negative or not required by law. The above report was generated using voice recognition software. It may contain grammatical, syntax o r spelling errors. Electronically signed by: Nitin Booker M.D. 03/03/2023 8:45 AM
[2023-03-03] MEDS: AMPICILLIN/SULBACTAM SOD 3,000 MG in 0.9 % SODIUM CHLORIDE 100 ML IV SCH ×3 (08:50→19:53)
[2023-03-03] MEDS: PANTOprazole 40 MG TAB PO SCH (08:50)
[2023-03-03] MEDS: CHOLECALCIFEROL 1,000 UNITS 25 MCG TAB PO SCH (08:51)
[2023-03-03] MEDS: LORATADINE 10 MG TAB PO SCH (08:51)
[2023-03-03] MEDS: CYANOCOBALAMIN (B-12) 2,500 MCG TABLET SL SCH (08:51)
[2023-03-03] MEDS: PRENATAL VITAMIN 1 TAB PO SCH (08:52)
[2023-03-03] MEDS: ENOXAPARIN INJ 40 MG/0.4 ML SYR SQ SCH (08:52)
[2023-03-03] MEDS: modafiniL 100 MG TAB PO SCH (08:56)
[2023-03-03] MEDS ORDERED: TOPIRAMATE 100 MG TAB PO SCH ×2 (09:00→21:00)
[2023-03-03] MEDS ORDERED: modafiniL 100 MG TAB PO SCH (09:00)
--- NOTE | 2023-03-03 09:34 | Neurology Consultation ---
Date of Consultation March 03, 2023 Assessment & Plan (1) Facial droop: Patient presents with worsening of her chronic facial droop in the setting of a dental infection on the R side. With treatment she is improving rapidly. This is not consistent with an MS exacerbation which would be extremely unusual on ocrev us, nor consistent with a stroke. I recommend no further neurologic workup. Continue treatment of her infection per medicine team. Please contact us with any further questions, she can follow-up with her MS team as previously scheduled. Telehealth Consultation Telehealth Information Telehealth Information: I performed this visit using a real-time telehealth connection between my location and the patients location ([facility]). After connecting through interactive tele-video, patient was identified by name and date of and/or wristband check.Patient (or authorized healthcare provider service representative) was informed that this was a telemedicine visit and it was being conducted confidentially over secure lines. My office door was closed and no one else was present in the room with me.Patient (or authorized healthcare provider service representative) provided consent to proceed with the visit, expressed an understanding of privacy and security of the telemedicine visit, and gave permission to have a hospital provider service representative in the room in order to assist with the visit and to conduct portions of the visit, as needed. I informed the patient (or authorized healthcare provider service representative) that I reviewed their record and presented the opportunity for them to ask any questions regarding the visit today. The patient agreed to participate. History of Present Illness Reason for Consultation: R facial droop Requesting Physician: Dr. Colon Attending Physician: Abdi Colon MD History of Present Illness Es Guaman is a 52 yo F with a history of MS on ocrevus presenting with a dental infection and worsened R facial droop from baseline. The patient new her facial droop was worsening and notes that this often indicates an infection. After receiving antibiotics she already is starting to feel better. Last Ocrevus infusion in December. No other concerns today. Allergies Allergy/AdvReac Type Severity Reaction Status Date / Time adhesive tape Allergy Unknown Unknown Verified 03/02/23 21:03 cephalexin Allergy Unknown Unknown Verified 03/02/23 21:03 ciprofloxacin Allergy Unknown Unknown Verified 03/02/23 21:03 diazepam Allergy Unknown Unknown Verified 03/02/23 22:38 latex Allergy Unknown Unknown Verified 03/02/23 21:03 prednisone Allergy Unknown Unknown Verified 03/02/23 22:38 red dye Allergy Unknown Unknown Verified 03/02/23 21:03 Home Medications Medication Instructions Recorded Confirmed Type Apple Cider Vinegar Liquid 2 tbsp PO QAM 03/02/23 03/02/23 History cholecalciferol (vitamin D3) 50 50 mcg PO QAM 03/02/23 03/02/23 History mcg (2,000 unit) tablet cyanocobalamin (vitamin B-12) 5,000 mcg sublingual QAM 03/02/23 03/02/23 History 5,000 mcg/mL sublingual drops (Vitamin B-12) loratadine 10 mg tablet (Claritin) 10 mg PO QAM 03/02/23 03/02/23 History modafinil 100 mg tablet 100 mg PO QAM 03/02/23 03/02/23 History nortriptyline 25 mg capsule 25 mg PO HS 03/02/23 03/02/23 History ocrelizumab 30 mg/mL intravenous 0 mg IV .EVERY 6 MONTHS 03/02/23 03/02/23 History solution (Ocrevus) omeprazole 40 mg capsule,delayed 40 mg PO QAM 03/02/23 03/02/23 History release prenat.vits,adolph,nai-paeb-akilg 1 tab PO QAM 03/02/23 03/02/23 History ropinirole 2 mg tablet 2 mg PO UD 03/02/23 03/02/23 History rosuvastatin 20 mg tablet 20 mg PO HS 03/02/23 03/02/23 History sumatriptan succinate 50 mg tablet 50 mg PO UD PRN Migraine Headache 03/02/23 03/02/23 History topiramate 200 mg tablet 200 mg PO UD 03/02/23 03/02/23 History Patient History Social History Smoking Status: Former smoker Smoking End Date: 2 years; Second Hand Exposure: No; Do You Dip or Chew Tobacco: No; Tobacco Cessation Education Requested by Patient: No Hx Alcohol Use: No Hx Substance Use: Yes Last Used Substance: Hours (ago) Last Used Substance Other:: 03/01/23 Evening Substance Use Type Other:: Medical Marijuana Preferred Language: Dutch Communication Ability: Effective 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 Oriented to person, place, and time. Fluent with mild dysarthria. Comprehension intact. Affect appropriate. Cranial Nerves: II: roman grossly intact. III/IV/: Versions intact without nystagmus, no gaze preference. VII: Facial expression reduced in the R lower face VIII: Hearing intact to voice Motor: Strength was symmetric and antigravity throughout. Pronator drift was absent. There were no abnormal movements. Reflexes: Unable to assess over telemedicine Results & Data Vital Signs (Past 12 Hours) Vital Signs Temp Pulse Pulse Resp BP BP BP 03/03/23 07:40 75 03/03/23 03:07 36.4 C L 95 H 18 103/69 03/03/23 00:04 73 03/03/23 00:44 36.6 C 81 14 124/84 03/02/23 23:57 36.6 C 81 18 124/84 03/02/23 23:57 03/02/23 21:55 81 18 110/75 Pulse Ox Pulse Ox O2 Del Method O2 Del Method 03/03/23 07:40 03/03/23 03:07 98 Room Air 03/03/23 00:04 03/03/23 00:44 99 Room Air 03/02/23 23:57 99 Room Air 03/02/23 23:57 99 Room Air 03/02/23 21:55 100 Room Air Laboratory Results Abnormal lab results 03/02/23 03/02/23 03/02/23 Range/Units 19:14 19:14 19:14 RBC 3.93 L (4.20-5.40) M/uL Hct 36.3 L (37.0-47.0) % RDW Coeff of Pina 11.4 L (11.5-14.5) % PT 12.4 H (9.0-12.0) Seconds Sodium 135 L (136-145) mmol/L Potassium 3.3 L (3.5-5.1) mmol/L Chloride (98-107) mmol/L BUN/Creatinine Ratio 9.1 L (10-20) Glucose 100 H (70-99(Fasting)) mg/dl POC Glucose (70-99) mg/dl Ur Leukocyte Esterase (Negative) 03/02/23 03/03/23 03/03/23 Range/Units 19:40 03:50 06:26 RBC 3.75 L (4.20-5.40) M/uL Hct 35.0 L (37.0-47.0) % RDW Coeff of Pina (11.5-14.5) % PT (9.0-12.0) Seconds Sodium (136-145) mmol/L Potassium (3.5-5.1) mmol/L Chloride (98-107) mmol/L BUN/Creatinine Ratio (10-20) Glucose (70-99(Fasting)) mg/dl POC Glucose 103 H (70-99) mg/dl Ur Leukocyte Esterase Trace H (Negative) 03/03/23 Range/Units 06:26 RBC (4.20-5.40) M/uL Hct (37.0-47.0) % RDW Coeff of Pina (11.5-14.5) % PT (9.0-12.0) Seconds Sodium (136-145) mmol/L Potassium (3.5-5.1) mmol/L Chloride 115 H (98-107) mmol/L BUN/Creatinine Ratio 9.5 L (10-20) Glucose (70-99(Fasting)) mg/dl POC Glucose (70-99) mg/dl Ur Leukocyte Esterase (Negative) Diagnostic Findings Chest X-Ray 03/02/23 18:59 XR chest 1V portable HISTORY: 52 years-old Female neuro deficit, acute stroke suspected acute shortness of breath COMPARISON: None TECHNIQUE: AP view of the chest FINDINGS: Cardiomediastinal and hilar silhouettes are within normal limits. No pneumothorax, pleural effusion, airspace consolidation or overt pulmonary edema. Bones appear grossly intact. IMPRESSION: No acute process. ACT 112: Negative or not required by law. The above report was generated using voice recognition software. It may contain grammatical, syntax or spelling errors. Electronically signed by: Nitin Booker M.D. 03/03/2023 8:[address] 03/02/23 18:59 CT angio head w con, CT head/brain wo con, CT angio neck with con CLINICAL HISTORY: 52 years-old Female with neuro deficit, acute stroke suspected. Acute strokelike symptoms COMPARISON STUDY: None TECHNIQUE: Unenhanced axial CT scan of the brain is performed. Subsequently, following the IV administration of 118 cc of Optiray, CT angiogram of the head and neck was performed from the aortic arch to the skull apex. Images are reviewed in the axial, sagittal, and coronal planes. 3-D MIPS images are created and assessed. IV contrast was administered without complication. All measurements were obtained according to NASCET criteria. A dose lowering technique was utilized adhering to the principles of ALARA. CT DOSE: 990.40 mGy.cm FINDINGS: CT BRAIN: There is no acute intracranial hemorrhage, midline shift, hydrocephalus, intracranial mass, territorial ischemia or abnormal extra-axial collections. No abnormal intra-axial or extra-axial enhancement. Mastoid air cells and middle ear cavities are clear. Mild nonspecific white matter hypodensities. Prior suboccipital craniectomy. No calvarial fracture. Paranasal sinuses are clear. CT ANGIOGRAM OF THE HEAD AND NECK: Ectasia of the ascending thoracic aorta, 3.8 cm. Common carotid arteries are patent. Atheromatous plaque of the carotid bulbs results in less than 50% stenosis bilaterally, right greater than left. The bilateral anterior and middle cerebral arteries are also patent. The vertebrobasilar system and posterior cerebral arteries are widely patent. 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 There is no aneurysm, high-grade stenosis, or proximal branch occlusion identified. Dural sinuses appear patent. Lung apices are clear. Unremarkable soft tissues. Mastoid air cells are clear. No acute fracture. IMPRESSION: 1. No acute intracranial abnormality. 2. Prior suboccipital craniectomy. 3. Unremarkable CTA of the head and neck. 4. Fenestrated basilar artery. ACT 112: Negative or not required by law. The above report was generated using voice recognition software. It may contain grammatical, syntax or spelling errors. Electronically signed by: Nitin Booker M.D. 03/02/2023 7:44 PM Head CTA 03/02/23 18:59 CT angio head w con, CT head/brain wo con, CT angio neck with con CLINICAL HISTORY: 52 years-old Female with neuro deficit, acute stroke suspected. Acute strokelike symptoms COMPARISON STUDY: None TECHNIQUE: Unenhanced axial CT scan of the brain is performed. Subsequently, following the IV administration of 118 cc of Optiray, CT angiogram of the head and neck was performed from the aortic arch to the skull apex. Images are reviewed in the axial, sagittal, and coronal planes. 3-D MIPS images are created and assessed. IV contrast was administered without complication. All measurements were obtained according to NASCET criteria. A dose lowering technique was utilized adhering to the principles of ALARA. CT DOSE: 990.40 mGy.cm FINDINGS: CT BRAIN: There is no acute intracranial hemorrhage, midline shift, hydrocephalus, intracranial mass, territorial ischemia or abnormal extra-axial collections. No abnormal intra-axial or extra-axial enhancement. Mastoid air cells and middle ear cavities are clear. Mild nonspecific white matter hypodensities. Prior suboccipital craniectomy. No calvarial fracture. Paranasal sinuses are clear. CT ANGIOGRAM OF THE HEAD AND NECK: Ectasia of the ascending thoracic aorta, 3.8 cm. Common carotid arteries are patent. Atheromatous plaque of the carotid bulbs results in less than 50% stenosis bilaterally, right greater than left. The bilateral anterior and middle cerebral arteries are also patent. The vertebrobasilar system and posterior cerebral arteries are widely patent. 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 There is no aneurysm, high-grade stenosis, or proximal branch occlusion identified. Dural sinuses appear patent. Lung apices are clear. Unremarkable soft tissues. Mastoid air cells are clear. No acute fracture. IMPRESSION: 1. No acute intracranial abnormality. 2. Prior suboccipital craniectomy. 3. Unremarkable CTA of the head and neck. 4. Fenestrated basilar artery. ACT 112: Negative or not required by law. The above report was generated using voice recognition software. It may contain grammatical, syntax or spelling errors. Electronically signed by: Nitin Booker M.D. 03/02/2023 7:44 PM Neck CTA 03/02/23 18:59 CT angio head w con, CT head/brain wo con, CT angio neck with con CLINICAL HISTORY: 52 years-old Female with neuro deficit, acute stroke suspected. Acute strokelike symptoms COMPARISON STUDY: None TECHNIQUE: Unenhanced axial CT scan of the brain is performed. Subsequently, following the IV administration of 118 cc of Optiray, CT angiogram of the head and neck was performed from the aortic arch to the skull apex. Images are reviewed in the axial, sagittal, and coronal planes. 3-D MIPS images are created and assessed. IV contrast was administered without complication. All measurements were obtained according to NASCET criteria. A dose lowering technique was utilized adhering to the principles of ALARA. CT DOSE: 990.40 mGy.cm FINDINGS: CT BRAIN: There is no acute intracranial hemorrhage, midline shift, hydrocephalus, intracranial mass, territorial ischemia or abnormal extra-axial collections. No abnormal intra-axial or extra-axial enhancement. Mastoid air cells and middle ear cavities are clear. Mild nonspecific white matter hypodensities. Prior suboccipital craniectomy. No calvarial fracture. Paranasal sinuses are clear. CT ANGIOGRAM OF THE HEAD AND NECK: Ectasia of the ascending thoracic aorta, 3.8 cm. Common carotid arteries are patent. Atheromatous plaque of the carotid bulbs results in less than 50% stenosis bilaterally, right greater than left. The bilateral anterior and middle cerebral arteries are also patent. The vertebrobasilar system and posterior cerebral arteries are widely patent. 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 There is no aneurysm, high-grade stenosis, or proximal branch occlusion identified. Dural sinuses appear patent. Lung apices are clear. Unremarkable soft tissues. Mastoid air cells are clear. No acute fracture.
--- NOTE | 2023-03-03 11:54 | Hospitalist Progress Note ---
Date of Service March 03, 2023 Assessment & Plan (1) Facial droop: (2) Dental caries: (3) Multiple sclerosis: Plan 52 year old female with h/o MS on Ocrevus, h/o Arnold Chiari malformation s/p surgery, chronic LBBB, seizure disorder, migraine, GERD, prior tobacco abuse, RLS presented to the ED with worsening chronic facial droop in setting of right dental infection CT head, CTA head and neck 1. No acute intracranial abnormality. 2. Prior suboccipital craniectomy. 3. Unremarkable CTA of the head and neck. 4. Fenestrated basilar artery. Dental infection- on iv unasyn and already improving. Does not look sick or septic. No fever or white count. Tolerating clears well. Will advance diet. Will likely change ABx to oral tomorrow and dc. F/u with dentist as OP Facial droop- Chronic, worsened in setting of dental infection. Seen by neuro- no further neuro work up recommended. MS- on ocrevus, last dose in December. Symptoms not consistent with flare. No indication for steroids or other treatment Seizure disorder/ H/o migraine- stable. on topamax RLS- on requip GERD- On ppi DVT ppx- sc lovenox Dispo- Anticipate discharge tomorrow if continues to do well Admission and Anticipated Discharge Date Admission Date: March 02, 2023 Subjective Patient was seen and examined bedside. She feels much better since admission. All her symptoms have improved including the tooth pain. No fever, chills, chest pain or shortness of breath, nausea or vomiting. No new neurological symptoms. She states she did well with physical therapy and would like to walk around more in the [place] Review of Systems Review of Systems: All systems reviewed & are unremarkable except as noted in Subjective Physical Exam Physical Exam: General: Lying comfortably in bed, not in distress, on room air HEENT: EOMI, MON[place], bad t-dental caries, caries on right maxillary molar Chest: Clear breath sounds bilaterally, no wheezes or crackles CVS: Regular rate and rhythm, normal heart sounds, no murmur Abdomen: Soft, non tender, not distended, normal bowel sounds Neuro: Awake, alert, oriented, conversing well, mild dysarthria, right facial asymmetry Extremities: No cyanosis, clubbing or edema Results & Data Results & Data Vital Signs (Past 12 Hours) Vital Signs Temp Pulse Pulse Resp BP BP Pulse Ox 03/03/23 11:44 36.4 C L 88 18 111/72 98 03/03/23 07:40 75 03/03/23 03:07 36.4 C L 95 H 18 103/69 98 03/03/23 00:04 73 03/03/23 00:44 36.6 C 81 14 124/84 99 03/02/23 23:57 36.6 C 81 18 124/84 99 03/02/23 23:57 Pulse Ox O2 Del Method O2 Del Method 03/03/23 11:44 Room Air 03/03/23 07:40 03/03/23 03:07 Room Air 03/03/23 00:04 03/03/23 00:44 Room Air 03/02/23 23:57 Room Air 03/02/23 23:57 99 Room Air Laboratory Results Short CBC 03/02/23 03/03/23 Range/Units 19:14 06:26 WBC 6.36 5.60 (4.8-10.8) K/ul Hgb 13.0 12.4 (12.0-16.0) g/dl Hct 36.3 L 35.0 L (37.0-47.0) % Plt Count 283 250 (130-400) K/uL BMP 03/02/23 03/03/23 19:14 06:26 Sodium 135 L 142 Potassium 3.3 L 3.5 Chloride 105 115 H Carbon Dioxide 22 21 BUN 7 6 Creatinine 0.77 0.63 Glucose 100 H 92 Calcium 9.2 8.7 Liver Function 03/02/23 Range/Units 19:14 Total Bilirubin 0.3 (0.2-1.0) mg/dl AST 18 (13-39) U/L ALT 18 (7-52) U/L Alkaline Phosphatase 84 (34-104) U/L Albumin 4.4 (3.4-5.0) gm/dl Urine 03/03/23 Range/Units 03:50 Urine Color Yellow Urine Appearance Clear (Clear) Urine pH 7.5 (4.5-7.5) Ur Specific [place] 1.021 (1.000-1.030) Urine Protein Negative (Negative) Urine Glucose (UA) Negative (Negative) Medications Administered Current Inpatient Medications Acetaminophen (Acetaminophen 325 Mg Tab) 650 mg PO Q4H PRN PRN Reason: Pain or Fever Stop: 04/01/23 23:56 Last Admin: 03/03/23 01:40 Dose: 650 mg Cyanocobalamin (Cyanocobalamin (B-12) 2,500 Mcg Tablet) 5,000 mcg SL [facility] Stop: 04/02/23 08:59 Last Admin: 03/03/23 08:51 Dose: 5,000 mcg Enoxaparin Sodium (Enoxaparin Inj 40 Mg/0.4 Ml Syr) 40 mg SQ [facility] Stop: 04/02/23 08:59 Last Admin: 03/03/23 08:52 Dose: 40 mg Promethazine HCl 6.25 mg/ (Sodium Chloride) 50.25 mls @ 201 mls/hr IV Q6H PRN PRN Reason: Nausea And Vomiting Stop: 04/01/23 23:56 Ampicillin Sodium/Sulbactam Sodium 3,000 mg/ Sodium Chloride 108 mls @ 200 mls/hr IV Q6H [facility]; Protocol Stop: 03/13/23 07:59 Last Infusion: 03/03/23 09:25 Dose: Infused Loratadine (Loratadine 10 Mg Tab) 10 mg PO [facility] Stop: 04/02/23 08:59 Last Admin: 03/03/23 08:51 Dose: 10 mg Lorazepam (Lorazepam 0.5 Mg Tab) 0.5 mg PO TID PRN PRN Reason: Anxiety Stop: 04/01/23 23:56 Modafinil (Modafinil 100 Mg Tab) 100 mg PO [facility] Stop: 04/02/23 08:59 Last Admin: 03/03/23 08:56 Dose: 100 mg Nortriptyline HCl (Nortriptyline Hcl 25 Mg Cap) 25 mg PO [facility] Stop: 04/02/23 01:54 Last Admin: 03/03/23 02:14 Dose: 25 mg Oxycodone HCl (Oxycodone Hcl Ir 5 Mg Tab (Immediate Release)) 5 mg PO Q4H PRN PRN Reason: Pain Stop: 03/16/23 23:56 Pantoprazole Sodium (Pantoprazole 40 Mg Tab) 40 mg PO [facility] Stop: 04/02/23 08:59 Last Admin: 03/03/23 08:50 Dose: 40 mg Prenat Multivit/[place]/Iron/Folic Ac ( Vitamin 1 Tab) [facility] [place] Stop: 04/02/23 08:59 Last Admin: 03/03/23 08:52 Dose: 1 tab Ropinirole HCl (Ropinirole Hcl 2 Mg Tablet) 2 mg PO 1500,2100 [facility] Stop: 04/02/23 01:54 Last Admin: 03/03/23 02:13 Dose: 2 mg Rosuvastatin Calcium (Rosuvastatin Calcium 20 Mg Tab) 20 mg PO [facility] Stop: 04/02/23 20:59 Topiramate (Topiramate 100 Mg Tab) 400 mg PO [facility] Stop: 04/02/23 01:59 Last Admin: 03/03/23 02:14 Dose: 400 mg Topiramate (Topiramate 100 Mg Tab) 200 mg PO [facility] Stop: 04/02/23 08:59 Last Admin: 03/03/23 08:49 Dose: 200 mg Vitamin D (Cholecalciferol 1,000 Units 25 Mcg Tab) 2,000 units [facility] [place] Stop: 04/02/23 08:59 Last Admin: 03/03/23 08:51 Dose: 2,000 units
[2023-03-03] MEDS ORDERED: rOPINIRole HCL 2 MG TABLET PO SCH (15:00)
[2023-03-03] MEDS: ROSUVASTATIN CALCIUM 20 MG TAB PO SCH (20:07)
[2023-03-03] MEDS ORDERED: NORTRIPTYLINE HCL 25 MG CAP PO SCH (21:00)
[2023-03-04] MEDS: AMPICILLIN/SULBACTAM SOD 3,000 MG in 0.9 % SODIUM CHLORIDE 100 ML IV SCH ×4 (01:06→19:52)
[2023-03-04 07:02] LABS: Basophils # (auto) 0.02 K/uL (0-0.2); Basophils % (auto) 0.4 %; Eosinophils # (auto) 0.09 K/uL (0-0.50); Eosinophils % (auto) 1.8 %; Hemoglobin 12.5 g/dl (12.0-16.0); Immature Granulocytes # (auto) 0.01 K/uL (0.01-0.20); Immature Granulocytes % (auto) 0.2 %; Lymphocytes # (auto) 1.75 K/uL (1.2-3.4); Lymphocytes % (auto) 34.4 %; Mean Corpuscular Hemoglobin 32.5 pg (25.0-34.0); Mean Corpuscular Hgb Conc 34.7 g/dL (32.0-36.0); Mean Corpuscular Volume 93.5 fL (80.0-100.0); Mean Platelet Volume 10.5 fL (9.4-12.4); Monocytes # (auto) 0.49 K/uL (0.11-0.59); Monocytes % (auto) 9.6 %; Neutrophils # (auto) 2.73 K/uL (1.40-6.50); Neutrophils % (auto) 53.6 %; Platelet Count 267 K/uL (130-400); RDW Coefficient of Variation 11.8 % (11.5-14.5); RDW Standard Deviation 39.8 fL (36.4-46.3); Red Blood Count 3.85 M/uL (4.20-5.40); White Blood Count 5.09 K/ul (4.8-10.8)
[2023-03-04 07:26] LABS: BUN Creatinine Ratio 7.6 (10-20); Calcium 8.8 mg/dl (8.6-10.3); Creatinine Clr Calc Pharmacy 84.4 ml/min; Est GFR (African American) 119.4 ml/min; Potassium 3.5 mmol/L (3.5-5.1)
[2023-03-04] MEDS: CYANOCOBALAMIN (B-12) 2,500 MCG TABLET SL SCH (08:53)
[2023-03-04] MEDS: PANTOprazole 40 MG TAB PO SCH (08:53)
[2023-03-04] MEDS: TOPIRAMATE 100 MG TAB PO SCH ×2 (08:54→23:09)
[2023-03-04] MEDS: CHOLECALCIFEROL 1,000 UNITS 25 MCG TAB PO SCH (08:54)
[2023-03-04] MEDS: LORATADINE 10 MG TAB PO SCH (08:54)
[2023-03-04] MEDS: PRENATAL VITAMIN 1 TAB PO SCH (08:55)
[2023-03-04] MEDS: ENOXAPARIN INJ 40 MG/0.4 ML SYR SQ SCH (08:56)
[2023-03-04] MEDS: modafiniL 100 MG TAB PO SCH (08:59)
--- NOTE | 2023-03-04 09:45 | Surgery Consultation ---
This case was discussed with the surgical PA. I agree with this plan. Date of Consultation March 04, 2023 Assessment & Plan (1) Right sided abdominal pain: This is a 52yF with a PMH of multiple sclerosis, seizure disorder, LBBB who presented to the [facility] ED on 03/02/23 with complaints of new onset R facial droop. A CT head was obtained that revealed no evidence of stroke. She was found to have + dental and R ear infection which exacerbated her MS which is believed to be the etiology of her symptoms. Unfortunately yesterday she reports nausea/vomiting/diarrhea and right sided pain after eating foods that she knows typically do not agree with her. Since changing to a gluten free diet she has resolution of her symptoms. She has history of cholelithiasis, however last imaging was performed >2 years ago. Today abdomen soft, non distended, with mild RUQ discomfort. At this time not convinced for acute cholecystitis, but will obtain a RUQ US for further information. GI has also been consulted for their recommendations given concern for possible gluten sensitivity and no history of colonoscopy. We will follow up on results, but no plans on surgical intervention while in house. She may follow up with us as an outpatient as her workup is complete if ongoing concern for gallbladder issues/biliary colic. History of Present Illness Attending Physician: Abdi Colon MD History of Present Illness This is a 52yF with a PMH of multiple sclerosis, seizure disorder, LBBB who presented to the [facility] ED on 03/02/23 with complaints of new onset R facial droop. A CT head was obtained that revealed no evidence of stroke. She was found to have + dental and R ear infection which exacerbated her MS which is believed to be the etiology of her symptoms. She has been started on antibiotics and has resolution of her facial droop, ringing ears, and pain. Unfortunately yesterday she reports nausea/vomiting/diarrhea and right sided pain after eating turkey, green beans, and mashed potatoes with gravy. She states she has had intermittent symptoms such as this since 2000 which she found to be related to eating certain foods that contain starch, acids, breads/pasta, etc. She changed her diet and this helped her significantly. She has had outpatient US that revealed cholelithiasis in the past, however due to it being over the covid pandemic did not follow up with a surgeon. She also does not have confirmed celiac's disease as she never had a colonoscopy for the same reasons as timing being around covid. Since her diet was changed to gluten free she denies any further abdominal complaints. No fevers/chills. Prior surgical history of appendectomy and tubal ligation. Allergies Allergy/AdvReac Type Severity Reaction Status Date / Time adhesive tape Allergy Unknown Unknown Verified 03/02/23 21:03 cephalexin Allergy Unknown Unknown Verified 03/02/23 21:03 ciprofloxacin Allergy Unknown Unknown Verified 03/02/23 21:03 diazepam Allergy Unknown Unknown Verified 03/02/23 22:38 latex Allergy Unknown Unknown Verified 03/02/23 21:03 prednisone Allergy Unknown Unknown Verified 03/02/23 22:38 red dye Allergy Unknown Unknown Verified 03/02/23 21:03 Home Medications Medication Instructions Recorded Confirmed Type Apple Cider Vinegar Liquid 2 tbsp PO QAM 03/02/23 03/02/23 History cholecalciferol (vitamin D3) 50 50 mcg PO QAM 03/02/23 03/02/23 History mcg (2,000 unit) tablet cyanocobalamin (vitamin B-12) 5,000 mcg sublingual QAM 03/02/23 03/02/23 History 5,000 mcg/mL sublingual drops (Vitamin B-12) loratadine 10 mg tablet (Claritin) 10 mg PO QAM 03/02/23 03/02/23 History modafinil 100 mg tablet 100 mg PO QAM 03/02/23 03/02/23 History nortriptyline 25 mg capsule 25 mg PO HS 03/02/23 03/02/23 History ocrelizumab 30 mg/mL intravenous 0 mg IV .EVERY 6 MONTHS 03/02/23 03/02/23 History solution (Ocrevus) omeprazole 40 mg capsule,delayed 40 mg PO QAM 03/02/23 03/02/23 History release prenat.vits,adolph,[id number] 1 tab PO QAM 03/02/23 03/02/23 History ropinirole 2 mg tablet 2 mg PO UD 03/02/23 03/02/23 History rosuvastatin 20 mg tablet 20 mg PO HS 03/02/23 03/02/23 History sumatriptan succinate 50 mg tablet 50 mg PO UD PRN Migraine Headache 03/02/23 03/02/23 History topiramate 200 mg tablet 200 mg PO UD 03/02/23 03/02/23 History Patient History Social History Smoking Status: Former smoker Smoking End Date: 2 years; Second Hand Exposure: No; Do You Dip or Chew Tobacco: No; Tobacco Cessation Education Requested by Patient: No Hx Alcohol Use: No Hx Substance Use: Yes Last Used Substance: Hours (ago) Last Used Substance Other:: 03/01/23 Evening Substance Use Type Other:: Medical Marijuana Preferred Language: Omani Communication Ability: Effective Client Services Specialist Required: No Beliefs That Will Affect Care: None Current Living Situation: Other Current Living Situation Comment: Lives with a friend Other Information That Helps Us Care for You: No Feels Safe at Home: Yes Safety Concerns: Feels Safe At This Time Assistive Devices: Cane and Walker Assistive Devices Comment: As needed for MS Review of Systems Constitutional: no fever and no chills Ear, Nose, Mouth, Throat: presented with R facial droop, ringing ears, and R sided head pain all since resolved Cardiovascular: no chest pain Gastrointestinal: + abdominal pain (R mid abdomen (yesterday)), + bloating (yesterday), + nausea (yesterday), + vomiting (yesterday) and + diarrhea/loose stools (yesterday) Physical Exam Physical Exam: awake/alert, no distress ENMT: No facial droop appreciated Respiratory: normal respiratory effort Gastrointestinal (Abdomen): Inspection/Auscultation: abdomen not distended Percussion/Palpation: + abdomen tender (mild RUQ discomfort to palpation) and abdomen soft Results & Data Vital Signs (Past 12 Hours) Vital Signs Temp Pulse Resp BP Pulse Ox O2 Del Method 03/04/23 07:37 36.5 C 77 16 113/74 99 Room Air 03/03/23 23:53 36.7 C 75 18 102/67 97 Room Air PG Care Time/CCT Total # of Minutes Spent Total Time Spent with Patient: Total time spent is greater than 50% in coordination of care (as documented) at patient's floor/unit and/or counseling patient: Coding Level of Care Code 50342 INT INP/OBS CARE 1/40MIN Diagnoses Right sided abdominal pain R10.9
--- NOTE | 2023-03-04 11:45 | Gastrointestinal Consultation ---
Date of Consultation March 04, 2023 Assessment & Plan (1) Postprandial nausea: (2) Right sided abdominal pain: (3) Loose stools: Pt is a 52 yo female w hx of MS, currently seen for chronic symptoms of post prandial RUQ pain, nausea w occasional vomiting, loose stools wo GI bleeding. Hx of cholelithiasis and was planning to get cholecystectomy from what she could tell me a few years ago. DDX: cholecystitis, IBS, gastritis, PUD, celiac disease. - TTG IgA Ab, IgA - RUQ u/s to r/o gallstones, cholecystitis - KUB to eval stool burden - If loose stools, check Cdiff and stool cx - PPI daily - Arrange OP EGD and colonoscopy at [facility] per her preference - Discussed use of marijuana products which can contribute to her symptoms - GI to sign off; pls recall prn Supervising Physician Co-Signing Physician Notes Admitted for a facial droop with workup showing an infection as source for her symptoms. Reports chronic belly discomfort- nausea/vomiting/sometimes loose stools Agree with PE as documented Labs/imaging reviewed Abd glenda in 2020 showing gallstones, kub done this am. Prior history of arnold chiari malformation with a craniectomy in the past. She has been seen by surgery while here. Agree with celiac serologies, dietary discretion to avoid triggers that may trigger her symptoms as she described gravy to me as a possible trigger on her mashed potatoes. Agree with further plan of care as documented. History of Present Illness Reason for Consultation: Abd pain, nausea, ? celiac disease Requesting Physician: Dr. Abdi Colon Attending Physician: bAdi Colon MD History of Present Illness Patient is a 52 years old female currently admitted for right facial weakness in the setting of history of MS, and dental infection. GI was consulted today as patient had requested evaluation for abdominal pain, nausea, vomiting and sometimes loose stools. She states that few years ago she was diagnosed with cholelithiasis. Had been having epigastric and right upper quadrant abdominal pain , bloating within 1 hour after eating. At that time she had plan on getting a surgical evaluation for possible cholecystectomy via [facility] system. She was also supposed to get set up for a screening colonoscopy. However due to her elinor COVID she had aborted these medical plans and has not had any follow-up since. Patient reports that she does not know if she may also have celiac disease but knows that if she avoids gluten her abdominal symptoms are better. She reports that she had some weight loss about 20 pounds but cannot tell me over how long. She had intermittent episodes of loose stools but last bowel movement was about 3 to 4 days ago. Denies any history of rectal bleeding or dark tarry stools. Chart review showed + cholelithiasis in 2020 abd u/s. + occasional NSAIDs use, socially drinks ETOH, uses medical marijuana for her MS and seizure Allergies Allergy/AdvReac Type Severity Reaction Status Date / Time adhesive tape Allergy Unknown Unknown Verified 03/02/23 21:03 cephalexin Allergy Unknown Unknown Verified 03/02/23 21:03 ciprofloxacin Allergy Unknown Unknown Verified 03/02/23 21:03 diazepam Allergy Unknown Unknown Verified 03/02/23 22:38 latex Allergy Unknown Unknown Verified 03/02/23 21:03 prednisone Allergy Unknown Unknown Verified 03/02/23 22:38 red dye Allergy Unknown Unknown Verified 03/02/23 21:03 Home Medications Medication Instructions Recorded Confirmed Type Apple Cider Vinegar Liquid 2 tbsp PO QAM 03/02/23 03/02/23 History cholecalciferol (vitamin D3) 50 50 mcg PO QAM 03/02/23 03/02/23 History mcg (2,000 unit) tablet cyanocobalamin (vitamin B-12) 5,000 mcg sublingual QAM 03/02/23 03/02/23 History 5,000 mcg/mL sublingual drops (Vitamin B-12) loratadine 10 mg tablet (Claritin) 10 mg PO QAM 03/02/23 03/02/23 History modafinil 100 mg tablet 100 mg PO QAM 03/02/23 03/02/23 History nortriptyline 25 mg capsule 25 mg PO HS 03/02/23 03/02/23 History ocrelizumab 30 mg/mL intravenous 0 mg IV .EVERY 6 MONTHS 03/02/23 03/02/23 History solution (Ocrevus) omeprazole 40 mg capsule,delayed 40 mg PO QAM 03/02/23 03/02/23 History release prenat.vits,adolph,[id number] 1 tab PO QAM 03/02/23 03/02/23 History ropinirole 2 mg tablet 2 mg PO UD 03/02/23 03/02/23 History rosuvastatin 20 mg tablet 20 mg PO HS 03/02/23 03/02/23 History sumatriptan succinate 50 mg tablet 50 mg PO UD PRN Migraine Headache 03/02/23 03/02/23 History topiramate 200 mg tablet 200 mg PO UD 03/02/23 03/02/23 History Patient History Social History Smoking Status: Former smoker Smoking End Date: 2 years; Second Hand Exposure: No; Do You Dip or Chew Tobacco: No; Tobacco Cessation Education Requested by Patient: No Hx Alcohol Use: No Hx Substance Use: Yes Last Used Substance: Hours (ago) Last Used Substance Other:: 03/01/23 Evening Substance Use Type Other:: Medical Marijuana Preferred Language: Divehi Communication Ability: Effective 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 Beliefs That Will Affect Care: None Current Living Situation: Other Current Living Situation Comment: Lives with a friend Other Information That Helps Us Care for You: No Feels Safe at Home: Yes Safety Concerns: Feels Safe At This Time Assistive Devices: Cane and Walker Assistive Devices Comment: As needed for MS Review of Systems Review of Systems: All systems reviewed & are unremarkable except as noted in HPI & below Physical Exam Constitutional: WD/WN, vitals as above well groomed, cooperative and comfortable Eyes: PERRL, conjunctivae normal, anicteric sclerae ENMT: external ear and nose normal, oropharynx normal Respiratory: normal respiratory effort, lungs clear to auscultation Cardiovascular: RRR, no murmur, no edema Gastrointestinal (Abdomen): Soft, TTP RUQ, BS present Skin: no rashes, warm and dry Psychiatric: A+Ox3, euthymic affect Lymphatic: no lymphedema Results & Data Vital Signs (Past 12 Hours) Vital Signs Temp Pulse Resp BP Pulse Ox O2 Del Method 03/04/23 10:52 Room Air 03/04/23 07:37 36.5 C 77 16 113/74 99 Room Air 03/03/23 23:53 36.7 C 75 18 102/67 97 Room Air
[2023-03-04] MEDS: ACETAMINOPHEN 325 MG TAB PO PRN (14:01)
--- NOTE | 2023-03-04 14:08 | Hospitalist Progress Note ---
Date of Service March 04, 2023 Assessment & Plan (1) Facial droop: (2) Dental caries: (3) Multiple sclerosis: Plan 52 year old female with h/o MS on Ocrevus, h/o Arnold Chiari malformation s/p surgery, chronic LBBB, seizure disorder, migraine, GERD, prior tobacco abuse, RLS presented to the ED with worsening chronic facial droop in setting of right dental infection CT head, CTA head and neck 1. No acute intracranial abnormality. 2. Prior suboccipital craniectomy. 3. Unremarkable CTA of the head and neck. 4. Fenestrated basilar artery. Dental infection- on iv unasyn and already improving. Does not look sick or septic. No fever or white count. Tolerating diet well. Will likely change ABx at al. F/u with dentist as OP N/V/abd pain- H/o gallstones. R/o cholecystitis vs biliary colic vs celiac disease vs others. Does fine with diet modification. H/o gallstones in prior US and CT. Seen by GI and surgery. Awaiting KUB and US abd. Celiac serologies also sent. OP follow up needed. Facial droop- Chronic, worsened in setting of dental infection. Seen by neuro- no further neuro work up recommended. MS- on ocrevus, last dose in December. Symptoms not consistent with flare. No indication for steroids or other treatment Seizure disorder/ H/o migraine- stable. on topamax RLS- on requip GERD- On ppi DVT ppx- sc lovenox Dispo- RUQ pending. Anticipate discharge tomorrow if remains stable. Admission and Anticipated Discharge Date Admission Date: March 02, 2023 Subjective Seen and examined at bedside. States she had N/V/abd pain with the lunch yesterday but none after the diet modification for dinner. She states she has h/o gallstones and passed 2 in the past. She saw Dr Moreno but he wanted ?colonoscopy prior to any procedure but then she had covid and did not follow up after that. No fever, chills, N/V/CP/SOB. Review of Systems Review of Systems: All systems reviewed & are unremarkable except as noted in Subjective Physical Exam Physical Exam: General: Lying comfortably in bed, not in distress, on room air HEENT: EOMI, MONICO, bad t-dental caries, caries on right maxillary molar Chest: Clear breath sounds bilaterally, no wheezes or crackles CVS: Regular rate and rhythm, normal heart sounds, no murmur Abdomen: Soft, non tender, not distended, normal bowel sounds Neuro: Awake, alert, oriented, conversing well, mild dysarthria, right facial asymmetry Extremities: No cyanosis, clubbing or edema Results & Data Results & Data Vital Signs (Past 12 Hours) Vital Signs Temp Pulse Resp BP BP Pulse Ox O2 Del Method 03/04/23 11:19 36.6 C 96 H 16 123/88 95 Room Air 03/04/23 10:52 Room Air 03/04/23 07:37 36.5 C 77 16 113/74 99 Room Air Laboratory Results Short CBC 03/04/23 Range/Units 06:06 WBC 5.09 (4.8-10.8) K/ul Hgb 12.5 (12.0-16.0) g/dl Hct 36.0 L (37.0-47.0) % Plt Count 267 (130-400) K/uL BMP 03/04/23 06:06 Sodium 141 Potassium 3.5 Chloride 113 H Carbon Dioxide 21 BUN 5 L Creatinine 0.66 Glucose 91 Calcium 8.8 Medications Administered Current Inpatient Medications Acetaminophen (Acetaminophen 325 Mg Tab) 650 mg PO Q4H PRN PRN Reason: Pain or Fever Stop: 04/01/23 23:56 Last Admin: 03/04/23 14:01 Dose: 650 mg Cyanocobalamin (Cyanocobalamin (B-12) 2,500 Mcg Tablet) 5,000 mcg SL [facility] Stop: 04/02/23 08:59 Last Admin: 03/04/23 08:53 Dose: 5,000 mcg Enoxaparin Sodium (Enoxaparin Inj 40 Mg/0.4 Ml Syr) 40 mg SQ QAM [facility] Stop: 04/02/23 08:59 Last Admin: 03/04/23 08:56 Dose: 40 mg Promethazine HCl 6.25 mg/ (Sodium Chloride) 50.25 mls @ 201 mls/hr IV Q6H PRN PRN Reason: Nausea And Vomiting Stop: 04/01/23 23:56 Last Infusion: 03/03/23 18:23 Dose: Infused Ampicillin Sodium/Sulbactam Sodium 3,000 mg/ Sodium Chloride 108 mls @ 200 mls/hr IV Q6H [facility]; Protocol Stop: 03/13/23 07:59 Last Infusion: 03/04/23 07:54 Dose: Infused [facility]atadine ([facility] 10 Mg Tab) [facility] Stop: 04/02/23 08:59 Last Admin: 03/04/23 08:54 Dose: 10 mg Lorazepam (Lorazepam 0.5 Mg Tab) 0.5 mg PO TID PRN PRN Reason: Anxiety Stop: 04/01/23 23:56 Modafinil (Modafinil 100 Mg Tab) [facility] Stop: 04/02/23 08:59 Last Admin: 03/04/23 08:59 Dose: 100 mg Nortriptyline HCl (Nortriptyline Hcl 25 Mg Cap) 25 mg PO [facility] Stop: 04/02/23 01:54 Last Admin: 03/03/23 20:07 Dose: 25 mg Oxycodone HCl (Oxycodone Hcl Ir 5 Mg Tab (Immediate Release)) 5 mg PO Q4H PRN PRN Reason: Pain Stop: 03/16/23 23:56 Pantoprazole Sodium (Pantoprazole 40 Mg Tab) [facility] Stop: 04/02/23 08:59 Last Admin: 03/04/23 08:53 Dose: 40 mg Prenat Multivit/Webster/Iron/Folic Ac ( Vitamin 1 Tab) [facility] Stop: 04/02/23 08:59 Last Admin: 03/04/23 08:55 Dose: 1 tab Ropinirole HCl (Ropinirole Hcl 2 Mg Tablet) 2 mg PO 1500,2100 [facility] Stop: 04/02/23 01:54 Last Admin: 03/03/23 20:07 Dose: 2 mg Rosuvastatin Calcium (Rosuvastatin Calcium 20 Mg Tab) 20 mg PO [facility] Stop: 04/02/23 20:59 Last Admin: 03/03/23 20:07 Dose: 20 mg Topiramate (Topiramate 100 Mg Tab) 400 mg PO [facility] Stop: 04/02/23 01:59 Last Admin: 03/03/23 20:07 Dose: 400 mg Topiramate (Topiramate 100 Mg Tab) [facility] Stop: 04/02/23 08:59 Last Admin: 03/04/23 08:54 Dose: 200 mg Vitamin D (Cholecalciferol 1,000 Units 25 Mcg Tab) 2,000 [facility] Stop: 04/02/23 08:59 Last Admin: 03/04/23 08:54 Dose: 2,000 units
[2023-03-04] MEDS: rOPINIRole HCL 2 MG TABLET PO SCH ×2 (16:21→23:09)
--- NOTE | 2023-03-04 16:42 | XRay Report ---
XR KUB/Abdomen 1 view CLINICAL HISTORY: eval stool burden TECHNIQUE: 1 view of the abdomen was obtained. Comparison: None available at the time of this dictation. FINDINGS: Lung bases are unremarkable. The osseous structures are grossly unremarkable. The bowel gas pattern i s nonobstructive. A moderate amount of stool is noted within the large bowel. IMPRESSION: Moderate stool burden with nonobstructive bowel gas pattern. ACT 112: Negative or not required by law. Electronically signed by: Tin Del Rio M.D. 03/04/2023 4:41 PM
--- NOTE | 2023-03-04 21:52 | Electrocardiogram Report ---
Test Reason : Blood Pressure : / mmHG Vent. Rate : 084 BPM Atrial Rate : 084 BPM P-R Int : 166 ms QRS Dur : 158 ms QT Int : 436 ms P-R-T Axes : 060 -01 101 degrees QTc Int : 515 ms Normal sinus rhythm Left bundle branch block Abnormal ECG No previous ECGs available Confirmed by Brennon Aburto ([id number]) on 03/04/2023 9:51:47 PM Referred By: REFERRED SELF Confirmed By:Brennon Aburto
[2023-03-04] MEDS: ROSUVASTATIN CALCIUM 20 MG TAB PO SCH (23:08)
[2023-03-04] MEDS: NORTRIPTYLINE HCL 25 MG CAP PO SCH (23:10)
[2023-03-05] MEDS: AMPICILLIN/SULBACTAM SOD 3,000 MG in 0.9 % SODIUM CHLORIDE 100 ML IV SCH ×3 (01:11→13:39)
--- NOTE | 2023-03-05 07:58 | Ultrasound Report ---
ULTRASOUND RIGHT UPPER QUADRANT ABDOMEN CLINICAL HISTORY: Postprandial right upper quadrant abdominal pain. COMPARISON STUDY: Abdominal ultrasound dated 04/13/2021. TECHNIQUE: Real-time, grayscale, and color flow sonography of the right upper quadrant of the abdomen was performed. Images are reviewed in the transverse and longitudinal planes. FINDINGS: Liver: The liver is normal in size and echotexture. There is no intrahepatic biliary ductal dilatatio n. The main portal vein is patent. Gallbladder: The gallbladder is distended and contains shadowing gallstones as well as biliary sludge . There is no gallbladder wall thickening or pericholecystic fluid. A sonographic Jeronimo's sign could not be evaluated as the patient received analgesia. The common bile duct measures up to 0.4 cm in di ameter. Pancreas: Visualized portions of the pancreatic head and body are normal in appearance. The splenic v ein is patent. Right kidney: Survey images of the right kidney demonstrate normal size and echotexture. There is no hydronephrosis. Ascites: None. IMPRESSION: 1. Cholelithiasis and biliary sludge within a distended gallbladder. There is no clear sonographic ev idence of acute cholecystitis at the time of examination. Note that a Jeronimo's sign could not be asse ssed as the patient received analgesia. Clinical and laboratory correlation will be required. If ther e is strong clinical concern for acute cholecystitis a nuclear hepatobiliary scan should be considere d. 2. There is no intra or extrahepatic biliary ductal dilatation. ACT 112: Negative or not required by law. Electronically signed by: Clark Aragon M.D. 03/05/2023 7:56 AM
[2023-03-05 08:21] LABS: Basophils # (auto) 0.03 K/uL (0-0.2); Basophils % (auto) 0.6 %; Eosinophils # (auto) 0.06 K/uL (0-0.50); Eosinophils % (auto) 1.3 %; Hemoglobin 13.2 g/dl (12.0-16.0); Lymphocytes % (auto) 33.5 %; Mean Corpuscular Hemoglobin 32.5 pg (25.0-34.0); Mean Corpuscular Hgb Conc 34.7 g/dL (32.0-36.0); Mean Corpuscular Volume 93.6 fL (80.0-100.0); Mean Platelet Volume 10.2 fL (9.4-12.4); Monocytes # (auto) 0.47 K/uL (0.11-0.59); Monocytes % (auto) 9.8 %; Neutrophils # (auto) 2.62 K/uL (1.40-6.50); Neutrophils % (auto) 54.8 %; Platelet Count 270 K/uL (130-400); RDW Coefficient of Variation 11.6 % (11.5-14.5); RDW Standard Deviation 40.1 fL (36.4-46.3); Red Blood Count 4.06 M/uL (4.20-5.40); White Blood Count 4.78 K/ul (4.8-10.8)
[2023-03-05 08:29] LABS: BUN Creatinine Ratio 8.2 (10-20); Calcium 9.3 mg/dl (8.6-10.3); Creatinine Clr Calc Pharmacy 76.3 ml/min; Est GFR (African American) 111.3 ml/min
[2023-03-05] MEDS: CYANOCOBALAMIN (B-12) 2,500 MCG TABLET SL SCH (09:25)
[2023-03-05] MEDS: PANTOprazole 40 MG TAB PO SCH (09:25)
[2023-03-05] MEDS: ENOXAPARIN INJ 40 MG/0.4 ML SYR SQ SCH (09:25)
[2023-03-05] MEDS: TOPIRAMATE 100 MG TAB PO SCH (09:25)
[2023-03-05] MEDS: CHOLECALCIFEROL 1,000 UNITS 25 MCG TAB PO SCH (09:25)
[2023-03-05] MEDS: LORATADINE 10 MG TAB PO SCH (09:25)
[2023-03-05] MEDS: PRENATAL VITAMIN 1 TAB PO SCH (09:25)
[2023-03-05] MEDS: modafiniL 100 MG TAB PO SCH (09:25)
--- NOTE | 2023-03-05 09:46 | Surgery Progress Note ---
I saw and examined this patient and agree with the plan. Date of Service March 05, 2023 Assessment & Plan (1) Cholelithiasis: Plan: RUQ US obtained last night showing + cholelithiasis and sludge in a distended gallbladder. no clear evidence for acute cholecystitis WBC 4. Vitals are stable She is feeling much better after changing to a gluten free diet. No further pain/nausea/vomiting Agree with outpatient GI workup She may also follow up with us as an outpatient to discuss elective cholecystectomy No plans for acute surgical intervention indicated at this time. we will follow peripherally, call with questions/concerns (2) Right sided abdominal pain: Admission and Anticipated Discharge Date Admission Date: March 02, 2023 Subjective Patient reports feeling well. Denies any further nausea/vomiting. Abdominal pain improved. Tolerated breakfast this AM without return of symptoms. Physical Exam Physical Exam: awake/alert, no distress Respiratory: normal respiratory effort Gastrointestinal (Abdomen): Inspection/Auscultation: abdomen not distended Percussion/Palpation: abdomen soft; abdomen nontender Results & Data Vital Signs (Past 12 Hours) Vital Signs Temp Pulse Resp BP Pulse Ox O2 Del Method 03/05/23 07:32 36.6 C 79 20 116/77 98 Room Air 03/05/23 03:33 36.7 C 91 H 20 125/84 97 Room Air 03/04/23 23:05 36.4 C L 82 18 110/68 97 Room Air PG Care Time/CCT Total # of Minutes Spent Total Time Spent with Patient: Total time spent is greater than 50% in coordination of care (as documented) at patient's floor/unit and/or counseling patient: Coding Level of Care Code 67207 SUB INP/OBS CARE 10/24MIN Diagnoses Cholelithiasis K80.20 Right sided abdominal pain R10.9
--- NOTE | 2023-03-05 14:06 | Discharge Summary ---
Date of Service March 05, 2023 Admission HPI Per Admitting Provider History obtained from patient, family, and records. Medical history significant for MS on Ocrevus, seizure disorder, Arnold-Chiari malformation status post surgery, chronic LBBB, GERD, migraine, chronic left foot drop, endometriosis status post surgery, RLS, past tobacco abuse. Few days ago, patient noted otalgia and tinnitus right ear without otorrhea. Associated right-sided headache symptoms. Headache different from usual migraine attack. Recent swimming activity with family. Patient also noted worsening dental pain from carious teeth especially right posterior upper molar. This afternoon, patient noted right sided facial droop and some slurred speech similar to MS flareup in the past. Left foot drop weaker than usual. Patient denies chest pain, SOB symptoms. Patient brought by partner to the ER for evaluation. 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 Admission Exam Per Admitting Provider GENERAL: Comfortable, slightly anxious, mild dysarthria, no respiratory distress SKIN: Normal color, warm HEENT: [place] palpebral conjunctivae, no ptosis, right facial asymmetry, dry buccal mucosa, carious dentition, carious right posterior maxillary molar; dull TM right without discharge NECK : Supple, no tenderness CHEST : CTA, no tenderness HEART : RRR, no obvious murmurs ABDOMEN: Some distention, nontender EXTREMITIES : No LE swelling/tenderness, no other conspicuous deformities noted NEUROLOGIC : Coherent, right facial asymmetry, dysarthric, gait and stance not a ssessed Principal Diagnosis Dental infection, Cholelithiasis Discharge Exam General: Sitting comfortably in bed, not in distress, on room air HEENT: EOMI, [place], bad t-dental caries, caries on right maxillary molar Chest: Clear breath sounds bilaterally, no wheezes or crackles CVS: Regular rate and rhythm, normal heart sounds, no murmur Abdomen: Soft, non tender, not distended, normal bowel sounds Neuro: Awake, alert, oriented, conversing well, mild dysarthria, right facial asymmetry Extremities: No cyanosis, clubbing or edema Discharge Data Allergies Allergy/AdvReac Type Severity Reaction Status Date / Time adhesive tape Allergy Unknown Unknown Verified 03/02/23 21:03 cephalexin Allergy Unknown Unknown Verified 03/02/23 21:03 ciprofloxacin Allergy Unknown Unknown Verified 03/02/23 21:03 diazepam Allergy Unknown Unknown Verified 03/02/23 22:38 latex Allergy Unknown Unknown Verified 03/02/23 21:03 prednisone Allergy Unknown Unknown Verified 03/02/23 22:38 red dye Allergy Unknown Unknown Verified 03/02/23 21:03 Consultations 03/02/23 21:22 ED Decision to Admit Stat 03/02/23 23:57 Consult Neurology Routine 03/04/23 07:23 Consult Gastroenterology Routine 03/04/23 08:38 Consult General Surgery Routine Ordered Studies 03/02/23 18:59 CT angio head w con Stat CT angio neck with con Stat CT head/brain wo con Stat 03/05/23 US abdomen limited Routine Laboratory Results WBC 4.78 K/ul (4.8-10.8) L 03/05/23 07:21 RBC 4.06 M/uL (4.20-5.40) L 03/05/23 07:21 Hgb 13.2 g/dl (12.0-16.0) 03/05/23 07:21 Hct 38.0 % (37.0-47.0) 03/05/23 07:21 MCV 93.6 fL (80.0-100.0) 03/05/23 07:21 MCH 32.5 pg (25.0-34.0) 03/05/23 07:21 MCHC 34.7 g/dL (32.0-36.0) 03/05/23 07:21 RDW Std Deviation 40.1 fL (36.4-46.3) 03/05/23 07:21 RDW Coeff of Pina 11.6 % (11.5-14.5) 03/05/23 07:21 Plt Count 270 K/uL (130-400) 03/05/23 07:21 MPV 10.2 fL (9.4-12.4) 03/05/23 07:21 Immature Gran % (Auto) 0.0 % 03/05/23 07:21 Neut % (Auto) 54.8 % 03/05/23 07:21 Lymph % (Auto) 33.5 % 03/05/23 07:21 Patrick % (Auto) 9.8 % 03/05/23 07:21 Eos % (Auto) 1.3 % 03/05/23 07:21 Baso % (Auto) 0.6 % 03/05/23 07:21 Neut # (Auto) 2.62 K/uL (1.40-6.50) 03/05/23 07:21 Lymph # (Auto) 1.60 K/uL (1.2-3.4) 03/05/23 07:21 Patrick # (Auto) 0.47 K/uL (0.11-0.59) 03/05/23 07:21 Eos # (Auto) 0.06 K/uL (0-0.50) 03/05/23 07:21 Baso # (Auto) 0.03 K/uL (0-0.2) 03/05/23 07:21 Immature Gran # (Auto) 0.00 K/uL (0.01-0.20) L 03/05/23 07:21 PT 12.4 Seconds (9.0-12.0) H 03/02/23 19:14 INR 1.1 (0.9-1.1) 03/02/23 19:14 APTT 25.9 Seconds (21.0-31.0) 03/02/23 19:14 PTT Ratio 0.9 03/02/23 19:14 Sodium 141 mmol/L (136-145) 03/05/23 07:21 Potassium 4.0 mmol/L (3.5-5.1) 03/05/23 07:21 Chloride 111 mmol/L (98-107) H 03/05/23 07:21 Carbon Dioxide 24 mmol/L (21-32) 03/05/23 07:21 Anion Gap 6 (3-11) 03/05/23 07:21 BUN 6 mg/dl (6-23) 03/05/23 07:21 Creatinine 0.73 mg/dl (0.6-1.2) 03/05/23 07:21 Est Cr Clr Drug Dosing 76.3 ml/min 03/05/23 07:21 Est GFR ( Amer) 111.3 ml/min 03/05/23 07:21 Est GFR (Non-Af Amer) 96.0 ml/min 03/05/23 07:21 BUN/Creatinine Ratio 8.2 (10-20) L 03/05/23 07:21 Glucose 88 mg/dl (70-99(Fasting)) 03/05/23 07:21 POC Glucose 103 mg/dl (70-99) H 03/02/23 19:40 Calcium 9.3 mg/dl (8.6-10.3) 03/05/23 07:21 Magnesium 2.0 mg/dl (1.7-2.4) 03/02/23 19:14 Total Bilirubin 0.3 mg/dl (0.2-1.0) 03/02/23 19:14 AST 18 U/L (13-39) 03/02/23 19:14 ALT 18 U/L (7-52) 03/02/23 19:14 Alkaline Phosphatase 84 U/L (34-104) 03/02/23 19:14 Troponin I High Sens < 2.3 pg/ml (0-14) 03/02/23 19:14 Total Protein 6.9 gm/dl (6.0-8.3) 03/02/23 19:14 Albumin 4.4 gm/dl (3.4-5.0) 03/02/23 19:14 Globulin 2.5 gm/dl (2.5-4.0) 03/02/23 19:14 Albumin/Globulin Ratio 1.8 (0.9-2) 03/02/23 19:14 Triglycerides 76 mg/dl (0-150) 03/03/23 06:26 Cholesterol 124 mg/dl (0-200) 03/03/23 06:26 LDL Cholesterol, Calc 48 mg/dl 03/03/23 06:26 VLDL Cholesterol, Calc 15 mg/dl (0-30) 03/03/23 06:26 HDL Cholesterol 61 mg/dl 03/03/23 06:26 Cholesterol/HDL Ratio 2.0 (0-5) 03/03/23 06:26 Urine Color Yellow 03/03/23 03:50 Urine Appearance Clear (Clear) 03/03/23 03:50 Urine pH 7.5 (4.5-7.5) 03/03/23 03:50 Ur Specific [place] 1.021 (1.000-1.030) 03/03/23 03:50 Urine Protein Negative (Negative) 03/03/23 03:50 Urine Glucose (UA) Negative (Negative) 03/03/23 03:50 Urine Ketones Negative (Negative) 03/03/23 03:50 Urine Blood Negative (Negative) 03/03/23 03:50 Urine Nitrite Negative (Negative) 03/03/23 03:50 Urine Bilirubin Negative (Negative) 03/03/23 03:50 Urine Urobilinogen Negative (Negative) 03/03/23 03:50 Ur Leukocyte Esterase Trace (Negative) H 03/03/23 03:50 Urine WBC (Auto) 1-5 /hpf (0-5) 03/03/23 03:50 Urine RBC (Auto) 0-4 /hpf (0-4) 03/03/23 03:50 U Hyaline Cast (Auto) 0 /lpf (0-5) 03/03/23 03:50 U Epithel Cells (Auto) 0-5 /lpf (0-5) 03/03/23 03:50 Urine Bacteria (Auto) Negative (Negative) 03/03/23 03:50 IgA 155.5 mg/dl (70-400) 03/04/23 09:58 Tiss Transglutamin IgA <1.0 U/mL 03/04/23 09:58 Lyme Disease IgG Ab Negative (Negative) 03/02/23 19:14 Lyme Disease IgM Ab Negative (Negative) 03/02/23 19:14 SARS-CoV-2, RNA, NAAT NEGATIVE (NEGATIVE) 03/02/23 21:25 Impressions Chest X-Ray 03/02/23 18:59 XR chest 1V portable HISTORY: 52 years-old Female neuro deficit, acute stroke suspected acute shortness of breath COMPARISON: None TECHNIQUE: AP view of the chest FINDINGS: Cardiomediastinal and hilar silhouettes are within normal limits. No pneumothorax, pleural effusion, airspace consolidation or overt pulmonary edema. Bones appear grossly intact. IMPRESSION: No acute process. ACT 112: Negative or not required by law. The above report was generated using voice recognition software. It may contain grammatical, syntax or spelling errors. Electronically signed by: Nitin Booker M.D. 03/03/2023 8:[address] 03/02/23 18:59 CT angio head w con, CT head/brain wo con, CT angio neck with con CLINICAL HISTORY: 52 years-old Female with neuro deficit, acute stroke suspected. Acute strokelike symptoms COMPARISON STUDY: None TECHNIQUE: Unenhanced axial CT scan of the brain is performed. Subsequently, following the IV administration of 118 cc of Optiray, CT angiogram of the head and neck was performed from the aortic arch to the skull apex. Images are reviewed in the axial, sagittal, and coronal planes. 3-D MIPS images are created and assessed. IV contrast was administered without complication. All measurements were obtained according to NASCET criteria. A dose lowering technique was utilized adhering to the principles of ALARA. CT DOSE: 990.40 mGy.cm FINDINGS: CT BRAIN: There is no acute intracranial hemorrhage, midline shift, hydrocephalus, intracranial mass, territorial ischemia or abnormal extra-axial collections. No abnormal intra-axial or extra-axial enhancement. Mastoid air cells and middle ear cavities are clear. Mild nonspecific white matter hypodensities. Prior suboccipital craniectomy. No calvarial fracture. Paranasal sinuses are clear. CT ANGIOGRAM OF THE HEAD AND NECK: Ectasia of the ascending thoracic aorta, 3.8 cm. Common carotid arteries are patent. Atheromatous plaque of the carotid bulbs results in less than 50% stenosis bilaterally, right greater than left. The bilateral anterior and middle cerebral arteries are also patent. The vertebrobasilar system and posterior cerebral arteries are widely patent. 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 There is no aneurysm, high-grade stenosis, or proximal branch occlusion identified. Dural sinuses appear patent. Lung apices are clear. Unremarkable soft tissues. Mastoid air cells are clear. No acute fracture. IMPRESSION: 1. No acute intracranial abnormality. 2. Prior suboccipital craniectomy. 3. Unremarkable CTA of the head and neck. 4. Fenestrated basilar artery. ACT 112: Negative or not required by law. The above report was generated using voice recognition software. It may contain grammatical, syntax or spelling errors. Electronically signed by: Nitin Booker M.D. 03/02/2023 7:44 PM Head CTA 03/02/23 18:59 CT angio head w con, CT head/brain wo con, CT angio neck with con CLINICAL HISTORY: 52 years-old Female with neuro deficit, acute stroke suspected. Acute strokelike symptoms COMPARISON STUDY: None TECHNIQUE: Unenhanced axial CT scan of the brain is performed. Subsequently, following the IV administration of 118 cc of Optiray, CT angiogram of the head and neck was performed from the aortic arch to the skull apex. Images are reviewed in the axial, sagittal, and coronal planes. 3-D MIPS images are created and assessed. IV contrast was administered without complication. All measurements were obtained according to NASCET criteria. A dose lowering technique was utilized adhering to the principles of ALARA. CT DOSE: 990.40 mGy.cm FINDINGS: CT BRAIN: There is no acute intracranial hemorrhage, midline shift, hydrocephalus, intracranial mass, territorial ischemia or abnormal extra-axial collections. No abnormal intra-axial or extra-axial enhancement. Mastoid air cells and middle ear cavities are clear. Mild nonspecific white matter hypodensities. Prior suboccipital craniectomy. No calvarial fracture. Paranasal sinuses are clear. CT ANGIOGRAM OF THE HEAD AND NECK: Ectasia of the ascending thoracic aorta, 3.8 cm. Common carotid arteries are patent. Atheromatous plaque of the carotid bulbs results in less than 50% stenosis bilaterally, right greater than left. The bilateral anterior and middle cerebral arteries are also patent. The vertebrobasilar system and posterior cerebral arteries are widely patent. 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 There is no aneurysm, high-grade stenosis, or proximal branch occlusion identified. Dural sinuses appear patent. Lung apices are clear. Unremarkable soft tissues. Mastoid air cells are clear. No acute fracture. IMPRESSION: 1. No acute intracranial abnormality. 2. Prior suboccipital craniectomy. 3. Unremarkable CTA of the head and neck. 4. Fenestrated basilar artery. ACT 112: Negative or not required by law. The above report was generated using voice recognition software. It may contain grammatical, syntax or spelling errors. Electronically signed by: Nitin Booker M.D. 03/02/2023 7:44 PM Neck CTA 03/02/23 18:59 CT angio head w con, CT head/brain wo con, CT angio neck with con CLINICAL HISTORY: 52 years-old Female with neuro deficit, acute stroke suspected. Acute strokelike symptoms COMPARISON STUDY: None TECHNIQUE: Unenhanced axial CT scan of the brain is performed. Subsequently, following the IV administration of 118 cc of Optiray, CT angiogram of the head and neck was performed from the aortic arch to the skull apex. Images are reviewed in the axial, sagittal, and coronal planes. 3-D MIPS images are created and assessed. IV contrast was administered without complication. All measurements were obtained according to NASCET criteria. A dose lowering technique was utilized adhering to the principles of ALARA. CT DOSE: 990.40 mGy.cm FINDINGS: CT BRAIN: There is no acute intracranial hemorrhage, midline shift, hydrocephalus, intracranial mass, territorial ischemia or abnormal extra-axial collections. No abnormal intra-axial or extra-axial enhancement. Mastoid air cells and middle ear cavities are clear. Mild nonspecific white matter hypodensities. Prior suboccipital craniectomy. No calvarial fracture. Paranasal sinuses are clear. CT ANGIOGRAM OF THE HEAD AND NECK: Ectasia of the ascending thoracic aorta, 3.8 cm. Common carotid arteries are patent. Atheromatous plaque of the carotid bulbs results in less than 50% stenosis bilaterally, right greater than left. The bilateral anterior and middle cerebral arteries are also patent. The vertebrobasilar system and posterior cerebral arteries are widely patent. 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 There is no aneurysm, high-grade stenosis, or proximal branch occlusion identified. Dural sinuses appear patent. Lung apices are clear. Unremarkable soft tissues. Mastoid air cells are clear. No acute fracture. IMPRESSION: 1. No acute intracranial abnormality. 2. Prior suboccipital craniectomy. 3. Unremarkable CTA of the head and neck. 4. Fenestrated basilar artery. ACT 112: Negative or not required by law. The above report was generated using voice recognition software. It may contain grammatical, syntax or spelling errors. Electronically signed by: Nitin Booker M.D. 03/02/2023 7:44 PM KUB X-Ray 03/04/23 09:10 XR KUB/Abdomen 1 view CLINICAL HISTORY: eval stool burden TECHNIQUE: 1 view of the abdomen was obtained. Comparison: None available at the time of this dictation. FINDINGS: Lung bases are unremarkable. The osseous structures are grossly unremarkable. The bowel gas pattern is nonobstructive. A moderate amount of stool is noted within the large bowel. IMPRESSION: Moderate stool burden with nonobstructive bowel gas pattern. ACT 112: Negative or not required by law. Electronically signed by: Tin Del Rio M.D. 03/04/2023 4:41 PM Abdomen Ultrasound 03/05/23 00:00 ULTRASOUND RIGHT UPPER QUADRANT ABDOMEN CLINICAL HISTORY: Postprandial right upper quadrant abdominal pain. COMPARISON STUDY: Abdominal ultrasound dated 04/13/2021. TECHNIQUE: Real-time, grayscale, and color flow sonography of the right upper quadrant of the abdomen was performed. Images are reviewed in the transverse and longitudinal planes. FINDINGS: Liver: The liver is normal in size and echotexture. There is no intrahepatic biliary ductal dilatation. The main portal vein is patent. Gallbladder: The gallbladder is distended and contains shadowing gallstones as well as biliary sludge. There is no gallbladder wall thickening or pericholecystic fluid. A sonographic Jeronimo's sign could not be evaluated as the patient received analgesia. The common bile duct measures up to 0.4 cm in diameter. Pancreas: Visualized portions of the pancreatic head and body are normal in appearance. The splenic vein is patent. Right kidney: Survey images of the right kidney demonstrate normal size and echotexture. There is no hydronephrosis. Ascites: None. IMPRESSION: 1. Cholelithiasis and biliary sludge within a distended gallbladder. There is no clear sonographic evidence of acute cholecystitis at the time of examination. Note that a Jeronimo's sign could not be assessed as the patient received analgesia. Clinical and laboratory correlation will be required. If there is strong clinical concern for acute cholecystitis a nuclear hepatobiliary scan should be considered. 2. There is no intra or extrahepatic biliary ductal dilatation. ACT 112: Negative or not required by law. Electronically signed by: Clark Aragon M.D. 03/05/2023 7:56 AM Hospital Course (1) Facial droop: (2) Dental caries: (3) Multiple sclerosis: (4) Cholelithiasis: Plan 52 year old female with h/o MS on Ocrevus, h/o Arnold Chiari malformation s/p surgery, chronic LBBB, seizure disorder, migraine, GERD, prior tobacco abuse, RLS presented to the ED with worsening chronic facial droop in setting of right dental infection. Improved with unasyn and discharging on augmentin with OP follow up with dentist. Also had N/V/abd discomfort and loose stool with certain diet here and was seen by GI and surgery. No acute cholecystitis. Recommended OP follow up for EGD/colonoscopy and elective cholecystectomy. She is glutein free low fat diet without issues and will continue the same at discharge. CT head, CTA head and neck 1. No acute intracranial abnormality. 2. Prior suboccipital craniectomy. 3. Unremarkable CTA of the head and neck. 4. Fenestrated basilar artery. RUQ US 1. Cholelithiasis and biliary sludge within a distended gallbladder. There is no clear sonographic evidence of acute cholecystitis at the time of examination. 2. There is no intra or extrahepatic biliary ductal dilatation. Dental infection- on iv unasyn and already improving. Does not look sick or septic. No fever or white count. Tolerating diet well. - ABx changed to augmentin at discharge for 10 more days along with probiotic. - F/u with dentist as OP for further management Cholelithiasis- seen by surgery. RUQ US noted as above. Seen by surgery and recommended OP follow up for elective cholecystectomy. No evidence of acute cholecystitis currently. ?celiac disease/glutein- has intermittent nausea and abd bloating/discomfort with certain diet and has been good once diet modified. Seen by GI. Recommend OP follow up for follow up on pending celiac serology as well as EGD/colonoscopy. continue diet modification. Facial droop- Chronic, worsened in setting of dental infection. Seen by neuro- no further neuro work up recommended. MS- on ocrevus, last dose in December. Symptoms not consistent with flare. No indication for steroids or other treatment Seizure disorder/ H/o migraine- stable. on topamax RLS- on requip GERD- On PPI Total Time Total Time Spent Total Time Spent (In Minutes): 42 Discharge Plan Discharge Items Patient Disposition: Home - Self-Care Reason For Visit: R FACIAL WEAKNESS Discharge Diagnosis: Dental infection, Cholelithiasis, ?glutein sensitivity vs celiac disease Activity: Resume your previous activity Non-emergency contact: Primary Care Provider, Surgeon and Color Mixer Call non-emergency contact if: you have any medication questions, your symptoms worsen, your pain is concerning for you and you have a fever Follow-up/Referrals: Bernadette Valencia CRNP [Nurse Practitioner] - (The GI office will call you with an appointment for outpatient testing.) Hinojosa-Bright,Kennita L., DO [Physician] - (You may call the office to schedule an appointment to discuss the possibility of removing your gallbladder as an outpatient) Steve Iniguez PA-C [Outside Practitioners] - (Date & Time 03/08/2023 10:00 AM Provider Steve Iniguez PA-C [address] [address] [facility] ) Diet: Gluten Free and Low Fat Diet Texture: Easy to Chew Addtl Attending Provider Instructions: Continue the antibiotic augmentin twice daily for 10 more days along with the probiotic Follow up with your dentist for dental evaluation Follow up with GI for follow up on pending blood test for celiac disease as well as schedule endoscopy/colonoscopy Follow up with surgery to discuss surgical removal of the gallbladder Follow up with your family doctor Pending Studies at Discharge: Yes Studies:: celiac serology Stand-Alone Forms: My [facility] [employer], Smoking Cessation Medications and DC Order Prescriptions: New amoxicillin-pot clavulanate 875-125 mg tablet 1 tab PO BID Qty: 20 0RF Rx Instructions: take with food Lactobacillus acidoph-L.bulgar [Floranex] 1 million cell tablet 1 tab PO DAILY Qty: 10 0RF Continued omeprazole 40 mg capsule,delayed release(DR/EC) 40 mg PO QAM nortriptyline 25 mg capsule 25 mg PO HS modafinil 100 mg tablet 100 mg PO QAM rosuvastatin 20 mg tablet 20 mg PO HS cholecalciferol (vitamin D3) 50 mcg (2,000 unit) tablet 50 mcg PO QAM sumatriptan succinate 50 mg tablet 50 mg PO UD PRN (Reason: Migraine Headache) ropinirole 2 mg tablet 2 mg PO UD Rx Instructions: take 2 mg at 3 pm and then again at bedtime topiramate 200 mg tablet 200 mg PO UD Rx Instructions: take 1 tablet in the morning and take 2 tablets at bedtime loratadine [Claritin] 10 mg Tablet 10 mg PO QAM Ocrevus 30 mg/mL Solution 0 mg IV .EVERY 6 MONTHS Rx Instructions: dose unknown Apple Cider Vinegar Liquid 2 tbsp PO QAM prenat.vits,adolph,[id number] Tablet 1 tab PO QAM Vitamin B-12 5,000 mcg/mL Drops 5,000 mcg SUBLINGUAL QAM Discharge Orders: Discharge Order (Routine); Ordered 03/05/23 Ordered By: Abdi Trinh/Other Patient Handouts: C. Diff Prevent Infection Admission Data Admit Date/Time: 03/02/23 22:34 Attending Provider: Abdi Colon Admit Provider: Isauro Daurte Primary Care Provider: Saundra Nicholson Other Providers: Isauro Duarte ; Lloyd Chandler ; Charles Alejo ; Debby Hines ; Renetta Johnson ; Bianca Carrington ; Char Callaway ; Tray Patel ; Mehul Torres ; Carolina Lopez ; Kim Tapia ; Mauricio Carrillo ; Yee Bazan ; Bethany Garcia ; Bernadette Valencia ; Caryn Carreno ; Rene Dillard ; Elmer Marinelli ; Salbador Sharpe ; Marilee Vaca ; Chari Layton Jr ; Frandy Patton ; Willard Moreno ; Dawna Acosta ; Preethi Lopez ; Remington Boothe ; Richard Prieto ; Serenity Saucedo ; Renetta Cantrell ; Niles Sales Jr ; Jhoana Martinez ; James Mendez ; Caryn Lawrence Other Interventions: Discharge Summary Assessment (RN) Last Done: 03/05/23 13:46
== END 2023-03-05 14:57 | disposition home or self-care (01) | DRG 159 ==
LOC: ED 18:44 → 2N 22:34

== ENCOUNTER 2023-12-04 10:17 | Inpatient (IN) ==
[2023-12-04 13:34] LABS: Basophils # (auto) 0.03 K/uL (0.00-0.20); Basophils % (auto) 0.6 %; Eosinophils # (auto) 0.03 K/uL (0.00-0.50); Eosinophils % (auto) 0.6 %; Hemoglobin 15.4 g/dl (12.0-16.0); Immature Granulocytes # (auto) 0.01 K/uL (0.01-0.20); Immature Granulocytes % (auto) 0.2 %; Lymphocytes # (auto) 1.86 K/uL (1.20-3.40); Lymphocytes % (auto) 36.5 %; Mean Corpuscular Hemoglobin 32.1 pg (25.0-34.0); Mean Corpuscular Volume 91.7 fL (80.0-100.0); Mean Platelet Volume 10.7 fL (9.4-12.4); Monocytes % (auto) 7.9 %; Neutrophils # (auto) 2.76 K/uL (1.40-6.50); Neutrophils % (auto) 54.2 %; Platelet Count 335 K/uL (130-400); RDW Coefficient of Variation 11.8 % (11.5-14.5); RDW Standard Deviation 39.5 fL (36.4-46.3); White Blood Count 5.09 K/ul (4.8-10.8)
[2023-12-04 13:39] LABS: Albumin Level 5.3 gm/dl (3.4-5.0); Bilirubin,Total 0.3 mg/dl (0.2-1.0); Calcium 9.8 mg/dl (8.6-10.3); Creatinine Clr Calc Pharmacy 85.8 ml/min; Est GFR (Non-African American) 101.8 ml/min; Globulin 2.7 gm/dl (2.5-4.0); Potassium 3.6 mmol/L (3.5-5.1)
[2023-12-04] MEDS: SODIUM CHLORIDE 0.9% 1,000 ML IV ONE (15:26)
[2023-12-04] MEDS: KETOROLAC TROMETHAMINE 15 MG/ML VIAL IV ONE (15:26)
--- NOTE | 2023-12-04 16:57 | CT Scan Report ---
CT head/brain wo con CLINICAL HISTORY: 53 years-old Female with facial droop, MS. Acute strokelike symptoms TECHNIQUE: Multiple axial CT images of the head were obtained without contrast. A dose lowering tech nique was utilized adhering to the principles of ALARA. CT DOSE: 625.8 mGy.cm COMPARISON: 03/02/2023 FINDINGS: No acute intracranial hemorrhage, midline shift, intracranial mass, hydrocephalus, territorial ischem ia or abnormal extra-axial collection. Unchanged scattered white matter hypodensities. Prior suboccip ital craniectomy. No acute calvarial fracture. Bilateral gracy bullosa. The paranasal sinuses, mastoid air cells, and middle ear cavities are clear. IMPRESSION: No acute intracranial abnormality. ACT 112: Negative or not required by law. The above report was generated using voice recognition software. It may contain grammatical, syntax o r spelling errors. Electronically signed by: Nitin Booker M.D. 12/04/2023 4:55 PM
--- NOTE | 2023-12-04 17:09 | Emergency Department Note ---
Impression & Plan Multiple sclerosis ED Provider Note NAME: TIP GLORIA AGE: 53 SEX: F : 1970 ARRIVES VIA: Walk-In INFORMANT: Patient, ED PROVIDER(S): Tanesha Trejo MD CHIEF COMPLAINT: Facial droop HPI: This is a 53-year-old female with history of multiple sclerosis presenting for facial droop, left lower extremity weakness. Patient states that over the past 2 weeks she has had worsening facial droop but has now left lower extremity weakness. She states that occasionally she will have flareups of her MS which manifest as the symptoms. She also reports during this time that she has had facial pain in her mouth where she had previous teeth removed. She is wondering if this is now infected. She is also had new onset diarrhea over the past few days. She went to her primary care doctor who did stool studies. ROS: See above HPI for pertinent positives & negatives. A total of 10 systems reviewed and were otherwise negative. PAST MEDICAL HISTORY: See Below PAST SURGICAL HISTORY: See Below FAMILY HISTORY: See Below SOCIAL HISTORY: See Below HOME MEDICATIONS: See Below ALLERGIES: See Below VITALS: See Below PHYSICAL EXAMINATION: General: resting comfortably in no acute distress Head: Normocephalic and atraumatic Eyes: Normal inspection, extraocular muscles intact Ear, nose, throat: Normal external exam, a dentulous without clear signs of fluctuance, redness, erythema Neck: Normal range of motion Respiratory: lungs clear to auscultation bilaterally Cardiovascular: Regular rate/rhythm, no murmur GI: soft, nontender, no guarding or rebound Extremities: nontender, moves all extremities Neuro: The patient awake and alert, appropriately conversive, right facial droop sparing the forehead, left lower extremity weakness, strength 2/5 Skin: Warm, dry, and intact MEDICAL DECISION MAKING: This is a 53-year-old female with history of multiple sclerosis presenting for facial droop and left lower extremity weakness. Patient mentions that she has had previous admissions for MS flares with similar etiology. She notes that a particular infusion has helped in the past as well as steroids. Will do screening head CT at this time. Patient does complain of significant pain in her right upper jaw/face, will give her IV medication for this. Patient has no signs of infection in her mouth at this time, may be related to irritation in her gums from her current dentures. -Upon reassessment patient's pain is moderately improved. -Due to patient's reported worsening of her facial droop/extremity weakness, will admit for MS flare Differential diagnosis: MS flare, low concern for stroke versus meningitis ER treatment provided: See below Diagnostics interpreted by me: ECG: None Cardiac Monitoring: An order was placed for continuous cardiac monitoring. The monitor shows a rate of 81 with sinus rhythm. Laboratory studies: As stated above and show below. Imaging studies: See below. Past Med/Surg History Medical History Facial droop chronic- right sided- recently worsened during [facility] [place] admission for dental infection History of skin cancer removed from arm and face Depression History of COVID-19 08/2020, PCP office test at [facility], not hosp; sick for 1 month>resolved. Arnold-Chiari malformation 2012>[place]>had Chiari Malformation Deformation procedure, no seizures since procedure. History of epilepsy most recent seizure 2012; f/u dr. 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 hameed, [facility] Back problem hx Skin cancer Surgical History Hx laparoscopic cholecystectomy (04/05/23) Laparoscopic Cholecystectomy(Not Applicable) - Karly Maradiaga DO Hx of rotator cuff surgery lt. Hx of tubal ligation Hx of dilation and curettage Hx of hysterectomy History of open reduction and internal fixation (ORIF) procedure lt. ankle History of bladder surgery bladder sling Hx of appendectomy H/O colonoscopy (03/11/23) H/O esophagogastroduodenoscopy (03/11/23) Family History Mother Breast cancer Cancer Stroke Uncle Diabetes Father Heart disease Stroke Grandfather (Paternal) Heart disease Social History Smoking Status: Never smoker Second Hand Exposure: Yes (hx-family smoked); Do You Dip or Chew Tobacco: No; Hx Alcohol Use: Yes Alcohol type: wine Hx Substance Use: Yes (medical card) Last Used Substance: Hours (ago) Last Used Substance Other:: topical and pills 2-3 times per week Substance Use Type Other:: Medical Marijuana Preferred Language: Tajik Communication Ability: Effective Visual Impairment: No Limitations 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 Required: No Beliefs That Will Affect Care: None marital status: Current Living Situation: Significant Other Current Living Situation Comment: Lives with a friend current occupational status: disabled How many Children do You have: 2 Feels Safe at Home: Yes Diet: gluten free, vegan and vegetarian during the past year weight has: decreased > 10 lbs Assistive Devices: Cane, Glasses and Walker Allergies Allergies Allergy/AdvReac Type Severity Reaction Status Date / Time adhesive tape Allergy Unknown red bumps Verified 12/04/23 17:25 appear instantly, itching cephalexin Allergy Unknown chest Verified 12/04/23 17:25 tightness ciprofloxacin Allergy Unknown legs Verified 12/04/23 17:25 swelling, rash diazepam Allergy Unknown Vomiting Verified 12/04/23 17:25 latex Allergy Unknown red bumps Verified 12/04/23 17:25 appear instantly, itching red dye Allergy Unknown Rash Verified 12/04/23 17:25 Home Meds Home Medications Medication Instructions Recorded Confirmed cholecalciferol (vitamin D3) 50 50 mcg PO QAM 03/02/23 12/04/23 mcg (2,000 unit) tablet cyanocobalamin (vitamin B-12) 1,200 mcg sublingual QAM 03/02/23 12/04/23 5,000 mcg/mL sublingual drops (Vitamin B-12) loratadine 10 mg tablet (Claritin) 10 mg PO QAM 03/02/23 12/04/23 modafinil 100 mg tablet 100 mg PO QAM 03/02/23 12/04/23 ocrelizumab 30 mg/mL intravenous 0 mg IV .EVERY 6 MONTHS 03/02/23 12/04/23 solution (Ocrevus) omeprazole 40 mg capsule,delayed 40 mg PO QAM 03/02/23 12/04/23 release prenat.vits,adolph,vch-mpmx-fjhyr 1 tab PO QAM 03/02/23 12/04/23 ropinirole 2 mg tablet 2 mg PO UD 03/02/23 12/04/23 sumatriptan succinate 50 mg tablet 50 mg PO UD PRN Migraine Headache 03/02/23 12/04/23 topiramate 200 mg tablet 200 - 400 mg PO UD 03/02/23 12/04/23 Medical Marijuana 1 dose PO UD PRN anxiety, pain 03/22/23 12/04/23 Turmeric-Curcumin 2 tab PO QAM Fatigue 03/22/23 12/04/23 krill oil 500 mg capsule 2,500 mg PO DAILY 11/28/23 12/04/23 vitamin E 670 mg (1,000 unit) 0 mg PO DAILY 11/28/23 12/04/23 capsule Apple Cider Gummies 500mg 1,000 mg PO DAILY 12/04/23 12/04/23 Probiotic Powder Pkg 1 packet PO DAILY 12/04/23 12/04/23 biotin 10,000 mcg capsule 10,000 mcg PO DAILY 12/04/23 12/04/23 epinephrine 0.3 mg/0.3 mL 0.3 mg IM DIRECTED PRN 12/04/23 12/04/23 injection, auto-injector .allergic reaction magnesium glycinate 100 mg tablet 400 mg PO HS 12/04/23 12/04/23 nortriptyline 10 mg capsule 10 mg PO HS 12/04/23 12/04/23 promethazine 6.25 mg/5 mL oral 6.25 mg PO DIRECTED PRN Nausea 12/04/23 12/04/23 syrup propranolol 10 mg tablet 10 mg PO DAILY 12/04/23 12/04/23 Results & Data (ED) Vital Signs Vital Signs - 24 hr 12/04/23 10:46 12/04/23 15:59 Temperature 36.6 C Temperature Source Temporal Artery Scan Pulse Rate 108 H Pulse Rate [Bilateral Radial] 81 Respiratory Rate 20 18 Respiratory Effort / Characteristics Non-Labored Respiratory Depth Normal Blood Pressure 124/95 Blood Pressure [Right Arm] 142/93 H Blood Pressure Mean 104 Blood Pressure Mean [Right Arm] 109 Pulse Oximetry 100 100 Oxygen Delivery Method Room Air Room Air Sepsis Recent Fever Within 48 Hours No Sepsis New/Unexplained Change in Mental Status No Sepsis Action Taken by Nursing No Action Required Laboratory Data 12/04/23 12:52 12/04/23 12:52 Lab Results 12/04/23 Range/Units 12:52 WBC 5.09 (4.8-10.8) K/ul RBC 4.80 (4.20-5.40) M/uL Hgb 15.4 (12.0-16.0) g/dl Hct 44.0 (37.0-47.0) % MCV 91.7 (80.0-100.0) fL MCH 32.1 (25.0-34.0) pg MCHC 35.0 (32.0-36.0) g/dL RDW Std Deviation 39.5 (36.4-46.3) fL RDW Coeff of Pina 11.8 (11.5-14.5) % Plt Count 335 (130-400) K/uL MPV 10.7 (9.4-12.4) fL Immature Gran % (Auto) 0.2 % Neut % (Auto) 54.2 % Lymph % (Auto) 36.5 % [place] % (Auto) 7.9 % Eos % (Auto) 0.6 % Baso % (Auto) 0.6 % Neut # (Auto) 2.76 (1.40-6.50) K/uL Lymph # (Auto) 1.86 (1.20-3.40) K/uL [place] # (Auto) 0.40 (0.11-0.59) K/uL Eos # (Auto) 0.03 (0.00-0.50) K/uL Baso # (Auto) 0.03 (0.00-0.20) K/uL Immature Gran # (Auto) 0.01 (0.01-0.20) K/uL Sodium 138 (136-145) mmol/L Potassium 3.6 (3.5-5.1) mmol/L Chloride 105 (98-107) mmol/L Carbon Dioxide 25 (21-32) mmol/L Anion Gap 8 (3-11) BUN 4 L (6-23) mg/dl Creatinine 0.67 (0.6-1.2) mg/dl Est Cr Clr Drug Dosing 85.8 ml/min Est GFR ( Amer) 118.0 ml/min Est GFR (Non-Af Amer) 101.8 ml/min BUN/Creatinine Ratio 6.0 L (10-20) Glucose 83 (70-99(Fasting)) mg/dl Calcium 9.8 (8.6-10.3) mg/dl Total Bilirubin 0.3 (0.2-1.0) mg/dl AST 16 (13-39) U/L ALT 14 (7-52) U/L Alkaline Phosphatase 96 (34-104) U/L Total Protein 8.0 (6.0-8.3) gm/dl Albumin 5.3 H (3.4-5.0) gm/dl Globulin 2.7 (2.5-4.0) gm/dl Albumin/Globulin Ratio 2.0 (0.9-2) Administered Medications Discontinued Medications Sodium Chloride (Nss) 1,000 mls @ 999 mls/hr IV .Q1H1M ONE Stop: 12/04/23 15:52 Last Admin: 12/04/23 15:26 Dose: 999 mls/hr Documented By: ELYSE Ketorolac Tromethamine (Ketorolac Tromethamine 15 Mg/Ml Vial) 15 mg IV NOW ONE Stop: 12/04/23 14:53 Last Admin: 12/04/23 15:26 Dose: 15 mg Documented By: ELYSE Imaging Data Radiologist's Impression: Head CT 12/04/23 14:51 CT head/brain wo con CLINICAL HISTORY: 53 years-old Female with facial droop, MS. Acute strokelike symptoms TECHNIQUE: Multiple axial CT images of the head were obtained without contrast. A dose lowering technique was utilized adhering to the principles of ALARA. CT DOSE: 625.8 mGy.cm COMPARISON: 03/02/2023 FINDINGS: No acute intracranial hemorrhage, midline shift, intracranial mass, hydrocephalus, territorial ischemia or abnormal extra-axial collection. Unchanged scattered white matter hypodensities. Prior suboccipital craniectomy. No acute calvarial fracture. Bilateral gracy bullosa. The paranasal sinuses, mastoid air cells, and middle ear cavities are clear. IMPRESSION: No acute intracranial abnormality. ACT 112: Negative or not required by law. The above report was generated using voice recognition software. It may contain grammatical, syntax or spelling errors. Electronically signed by: Nitin Booker M.D. 12/04/2023 4:55 PM Discharge Plan Visit Data Chief Complaint: Infection Stated Complaint: PT HAS MS, RIGHT SIDE FACIAL NUMBNESS, INFECTION ED Provider: Tanesha Trejo Discharge Problem: Multiple sclerosis Forms Stand Alone Forms: My [facility] Prescriptions Prescriptions: No Action vitamin E 670 mg (1,000 unit) capsule 0 mg PO DAILY krill oil 500 mg capsule 2,500 mg PO DAILY omeprazole 40 mg capsule,delayed release(DR/EC) 40 mg PO QAM modafinil 100 mg tablet 100 mg PO QAM cholecalciferol (vitamin D3) 50 mcg (2,000 unit) tablet 50 mcg PO QAM sumatriptan succinate 50 mg tablet 50 mg PO UD PRN (Reason: Migraine Headache) ropinirole 2 mg tablet 2 mg PO UD Rx Instructions: take 2 mg at 3 pm and then again at bedtime topiramate 200 mg tablet 200 - 400 mg PO UD Rx Instructions: take 1 tablet in the morning and take 2 tablets at bedtime loratadine [Claritin] 10 mg Tablet 10 mg PO QAM Ocrevus 30 mg/mL Solution 0 mg IV .EVERY 6 MONTHS Rx Instructions: last taken in may dose unknown prenat.vits,adolph,hut-dghk-zioia Tablet 1 tab PO QAM Vitamin B-12 5,000 mcg/mL Drops 1,200 mcg SUBLINGUAL QAM Medical Marijuana 1 dose PO UD PRN (Reason: anxiety, pain) Patient Comments: dr. ge's restorative lotion; Sativa gummies; organic remedies pill; Indica (taken at night) Turmeric-Curcumin 2 tab PO QAM Patient Comments: takes any time before noon Rx Instructions: with kellen Apple Cider Gummies 500mg 1,000 mg PO DAILY promethazine 6.25 mg/5 mL Syrup 6.25 mg PO DIRECTED PRN (Reason: Nausea) propranolol 10 mg tablet 10 mg PO DAILY nortriptyline 10 mg capsule 10 mg PO HS epinephrine [Epi E-Z Pen] 0.3 mg/0.3 mL Auto-Injector 0.3 mg IM DIRECTED PRN (Reason: .allergic reaction) magnesium glycinate 100 mg Tablet 400 mg PO HS Probiotic Powder Pkg 1 packet PO DAILY biotin 10,000 mcg Capsule 10,000 mcg PO DAILY Referrals Referrals: Bianca Lin MD [Primary Care Provider] -
--- NOTE | 2023-12-04 17:30 | History & Physical Report ---
Date of Service December 04, 2023 Assessment & Plan (1) Multiple sclerosis: (2) Facial droop: (3) History of seizure: Plan This is a 53-year-old female who has a significant past medical history of relapsing remitting MS, seizure disorder, arnold chiari malformation, essential tremors, history of migraine and RLS who presents to ED due to concern for possible MS flare. Possible MS flare admit to med tele will give 1g solumedrol x 1 now obtain MRI Brain/C spine with contrast consult neurology infectious w/u to include CXR, UA, blood cultures, resp biofire exposure to RSV in elderly neighbor and diarrheal illness next week anti emetics, analgesia ordered pt is due in the upcoming weeks for her ocrevus infusion continue provigil for daily fatigue follows [facility] and [facility] neuro it appears Hx of seizure d/o arnold chiari malformation continue topamax RLS continue requip Hx of migraines continue current meds DVT ppx: SQ lovenox FULL CODE PCP: JESSICA Wong Pt was seen and examined in collaboration with Dr. Sampson, please see addendum A total of 60 minutes was spent coordinating, documenting, and providing care for this patient excluding time spent in the performance of separately billed services. This included personally viewing all current laboratories and imaging studies, medication reconciliation, outpatient chart review, and discussion with specialists. History of Present Illness Chief Complaint: "I think I'm having an MRI flare." Primary Care Provider: Bianca Lin MD This is a 53-year-old female who has a significant past medical history of relapsing remitting MS, seizure disorder, arnold chiari malformation, essential tremors, history of migraine and RLS who presents to ED due to concern for possible MS flare. "I think I'm having a flare." She has had 3 previous flares. Her symptoms have been off and on the last few weeks. 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 She was last seen 11/26 from [facility] neurology in [place]. She was ordered an MRI of brain and cervical spine. She was unable to get MRI because someone canceled it. She has a chronic right facial droop and she feels it is worse. She also c/o Left leg weakness that is worse than normal. She also has left sided arm weakness. She denies difficulty chewing or swallowing. She does have redness to her face and she felt feverish. She denies lightheaded, dizziness, chest pain, sob, n/v/d, abd pain, change in bowel or urinary habits. Last week she had a week worth of diarrhea, but this has since resolved. She is complaining of pain where her dentures are rubbing. The dentures are tight. In ED patient remained hemodynamically stable. Head CT was negative for any acute abnormality. Evidence of prior suboccipital craniectomy. Allergies Allergy/AdvReac Type Severity Reaction Status Date / Time adhesive tape Allergy Unknown red bumps Verified 12/04/23 17:25 appear instantly, itching cephalexin Allergy Unknown chest Verified 12/04/23 17:25 tightness ciprofloxacin Allergy Unknown legs Verified 12/04/23 17:25 swelling, rash diazepam Allergy Unknown Vomiting Verified 12/04/23 17:25 latex Allergy Unknown red bumps Verified 12/04/23 17:25 appear instantly, itching red dye Allergy Unknown Rash Verified 12/04/23 17:25 Home Medications Medication Instructions Recorded Confirmed Type cholecalciferol (vitamin D3) 50 50 mcg PO QAM 03/02/23 12/04/23 History mcg (2,000 unit) tablet cyanocobalamin (vitamin B-12) 1,200 mcg sublingual QAM 03/02/23 12/04/23 History 5,000 mcg/mL sublingual drops (Vitamin B-12) loratadine 10 mg tablet (Claritin) 10 mg PO QAM 03/02/23 12/04/23 History modafinil 100 mg tablet 100 mg PO QAM 03/02/23 12/04/23 History ocrelizumab 30 mg/mL intravenous 0 mg IV .EVERY 6 MONTHS 03/02/23 12/04/23 History solution (Ocrevus) omeprazole 40 mg capsule,delayed 40 mg PO QAM 03/02/23 12/04/23 History release prenat.vits,adolph,nld-[id number] 1 tab PO QAM 03/02/23 12/04/23 History ropinirole 2 mg tablet 2 mg PO UD 03/02/23 12/04/23 History sumatriptan succinate 50 mg tablet 50 mg PO UD PRN Migraine Headache 03/02/23 12/04/23 History topiramate 200 mg tablet 200 - 400 mg PO UD 03/02/23 12/04/23 History Medical Marijuana 1 dose PO UD PRN anxiety, pain 03/22/23 12/04/23 History Turmeric-Curcumin 2 tab PO QAM Fatigue 03/22/23 12/04/23 History krill oil 500 mg capsule 2,500 mg PO DAILY 11/28/23 12/04/23 History vitamin E 670 mg (1,000 unit) 0 mg PO DAILY 11/28/23 12/04/23 History capsule Apple Cider Gummies 500mg 1,000 mg PO DAILY 12/04/23 12/04/23 History Probiotic Powder Pkg 1 packet PO DAILY 12/04/23 12/04/23 History biotin 10,000 mcg capsule 10,000 mcg PO DAILY 12/04/23 12/04/23 History epinephrine 0.3 mg/0.3 mL 0.3 mg IM DIRECTED PRN 12/04/23 12/04/23 History injection, auto-injector .allergic reaction magnesium glycinate 100 mg tablet 400 mg PO HS 12/04/23 12/04/23 History nortriptyline 10 mg capsule 10 mg PO HS 12/04/23 12/04/23 History promethazine 6.25 mg/5 mL oral 6.25 mg PO DIRECTED PRN Nausea 12/04/23 12/04/23 History syrup propranolol 10 mg tablet 10 mg PO DAILY 12/04/23 12/04/23 History Past Med/Surg History Medical History Facial droop chronic- right sided- recently worsened during [facility] admission for dental infection History of skin cancer removed from arm and face Depression History of COVID-19 08/2020, PCP office test at [facility], not hosp; sick for 1 month>resolved. Arnold-Chiari malformation 2012>[facility]>had Chiari Malformation Deformation procedure, no seizures since procedure. History of epilepsy most recent seizure 2012; f/u dr. 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 hameed, [facility] Back problem hx Skin cancer Surgical History Hx laparoscopic cholecystectomy (04/05/23) Laparoscopic Cholecystectomy(Not Applicable) - Karly Maradiaga, Hx of rotator cuff surgery lt. Hx of tubal ligation Hx of dilation and curettage Hx of hysterectomy History of open reduction and internal fixation (ORIF) procedure lt. ankle History of bladder surgery bladder sling Hx of appendectomy H/O colonoscopy (03/11/23) H/O esophagogastroduodenoscopy (03/11/23) Family History Mother Breast cancer Cancer Stroke Uncle Diabetes Father Heart disease Stroke Grandfather (Paternal) Heart disease Social History Smoking Status: Never smoker Second Hand Exposure: Yes (hx-family smoked); Do You Dip or Chew Tobacco: No; Hx Alcohol Use: Yes Alcohol type: wine Hx Substance Use: Yes (medical card) Last Used Substance: Hours (ago) Last Used Substance Other:: topical and pills 2-3 times per week Substance Use Type Other:: Medical Marijuana Preferred Language: German Communication Ability: Effective Visual Impairment: No 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 Results & Data Results & Data Vital Signs (Past 12 Hours) Vital Signs Temp Pulse Pulse Resp BP BP Pulse Ox 12/04/23 15:59 81 18 142/93 H 100 12/04/23 10:46 36.6 C 108 H 20 124/95 100 O2 Del Method 12/04/23 15:59 Room Air 12/04/23 10:46 Room Air Laboratory Results I have independently reviewed and interpreted patient's admitting labs including CBC, CMP. Diagnostic Findings Head CT 12/04/23 14:51 CT head/brain wo con CLINICAL HISTORY: 53 years-old Female with facial droop, MS. Acute strokelike symptoms TECHNIQUE: Multiple axial CT images of the head were obtained without contrast. A dose lowering technique was utilized adhering to the principles of ALARA. CT DOSE: 625.8 mGy.cm COMPARISON: 03/02/2023 FINDINGS: No acute intracranial hemorrhage, midline shift, intracranial mass, hydrocephalus, territorial ischemia or abnormal extra-axial collection. Unchanged scattered white matter hypodensities. Prior suboccipital craniectomy. No acute calvarial fracture. Bilateral gracy bullosa. The paranasal sinuses, ma stoid air cells, and middle ear cavities are clear. IMPRESSION: No acute intracranial abnormality. ACT 112: Negative or not required by law. The above report was generated using voice recognition software. It may contain grammatical, syntax or spelling errors. Electronically signed by: Nitin Booker M.D. 12/04/2023 4:55 PM Medications Administered Medication List Discontinued Medications Sodium Chloride (Nss) 1,000 mls @ 999 mls/hr IV .Q1H1M ONE Stop: 12/04/23 15:52 Last Admin: 12/04/23 15:26 Dose: 999 mls/hr Documented By: ELYSE Ketorolac Tromethamine (Ketorolac Tromethamine 15 Mg/Ml Vial) 15 mg IV NOW ONE Stop: 12/04/23 14:53 Last Admin: 12/04/23 15:26 Dose: 15 mg Documented By: ELYSE COVID-19 Results Results COVID-19 Adm Lab Results: RBC 4.80 M/uL (4.20-5.40) 12/04/23 WBC 5.09 K/ul (4.8-10.8) 12/04/23 Hgb 15.4 g/dl (12.0-16.0) 12/04/23 Hct 44.0 % (37.0-47.0) 12/04/23 Plt Count 335 K/uL (130-400) 12/04/23 Neutrophils (%) (Auto) 54.2 % 12/04/23 Lymphocytes (%) (Auto) 36.5 % 12/04/23 Monocytes # (Auto) 0.40 K/uL (0.11-0.59) 12/04/23 Eosinophils # (Auto) 0.03 K/uL (0.00-0.50) 12/04/23 Immature Granulocyte % (Auto) 0.2 % 12/04/23 Neutrophils # (Auto) 2.76 K/uL (1.40-6.50) 12/04/23 Lymphocytes # (Auto) 1.86 K/uL (1.20-3.40) 12/04/23 Monocytes # (Auto) 0.40 K/uL (0.11-0.59) 12/04/23 Eosinophils # (Auto) 0.03 K/uL (0.00-0.50) 12/04/23 Basophils # (Auto) 0.03 K/uL (0.00-0.20) 12/04/23 Immature Granulocyte # (Auto) 0.01 K/uL (0.01-0.20) 4 Na 138 mmol/L (136-145) 12/04/23 K 3.6 mmol/L (3.5-5.1) 12/04/23 Cl 105 mmol/L (98-107) 12/04/23 CO2 25 mmol/L (21-32) 12/04/23 Anion Gap 8 (3-11) 12/04/23 BUN 4 mg/dl (6-23) L 12/04/23 Creatinine 0.67 mg/dl (0.6-1.2) 12/04/23 BUN/Creatinine Ratio 6.0 (10-20) L 12/04/23 Glucose Level 83 mg/dl (70-99(Fasting)) 12/04/23 Ca 9.8 mg/dl (8.6-10.3) 12/04/23 Total Bilirubin 0.3 mg/dl (0.2-1.0) 12/04/23 AST/SGOT 16 U/L (13-39) 12/04/23 ALT/SGPT 14 U/L (7-52) 12/04/23 Alkaline Phosphatase 96 U/L (34-104) 12/04/23 Total Protein 8.0 gm/dl (6.0-8.3) 12/04/23 Albumin 5.3 gm/dl (3.4-5.0) H 12/04/23 Globulin 2.7 gm/dl (2.5-4.0) 12/04/23 Albumin/Globulin Ratio 2.0 (0.9-2) 12/04/23 Code Status & VTE Plan Code Status FULL CODE Supervising Physician Co-Signing Physician Notes I have seen and discussed the case with the collaborating advanced practitioner. I agree with the above H&P. I have reviewed and confirmed the patients medical history, the findings on physical examination, and the patients diagnosis and treatment plan with Jessica KONG and agree with the information documented. In short, Ms Guaman is a 53 year old woman with a history of MS confirmed by CSF, seizures on topamax, tremors, and RLS admitted for concern of MS flare. Patient notes being around recently ill, elderly neighbor with ?rsv/viral URI. Denies any overt symptoms, but notes feeling worse in last week with progressive symptoms consistent with her prior MS flares. Denies dysphagia, incontinence, or new neurologic symptoms. GENERAL APPEARANCE: AxOx4, non toxic, notable focal neuro deficits HEENT: NC, AT. MMM. EOMI, clear conjunctiva, oropharynx clear. NECK: Supple without lymphadenopathy. No stiffness or restricted ROM. HEART: Normal rate and regular rhythm, normal S1/S1, no m/r/g LUNGS: CTAB, moving air well. No crackles or wheezes are heard. ABDOMEN: Soft, nontender, nondistended with good bowel sounds heard. BACK: No CVAT, no obvious deformity. EXTREMITIES: Without cyanosis, clubbing or edema. NEUROLOGICAL: right facial droop/nasolabial flattening, lips unable to part on right side, left lower extremity 3/5 strength, right lower extremity 5/5 Skin: Warm and dry, area of erythema along forehead #Worsening right facial droop, LLE weakness MS flare v pseudoexacerbation -Receives Ocrevus 600mg [id number] -Recent exposure to ?RSV in elderly neighbor, recent diarrheal illness reported Denies fevers, chills, current nausea vomiting -IV solumedrol 1g now MRI brain and c spine with contrast now Neurology consult now Infectious work up: biofire and UA low threshold for abx #Daytime fatigue Continue modafinil 100mg qam #Seizure Continue topamax 200mg am/400mg pm #RLS continue 2mg requip #Tremors Continue propanolol Rest of plan as above I spent a total of 35 minutes coordinating, documenting, and providing care for this patient excluding time spent in the performance of separately billed services. All of the aforementioned completed outside of collaborating with the assigned advanced practitioner for a full treatment plan. I have reviewed the advanced practitioner's documentation, and I agree with, and take responsibility for the plan of care
[2023-12-04] MEDS: ACETAMINOPHEN 325 MG TAB PO STA (18:52)
[2023-12-04] MEDS: methylPREDNISolone 1,000 MG in DEXTROSE 5% 250 ML IV STA (18:53)
[2023-12-04] MEDS ORDERED: POLYETHYLENE (MIRALAX) 17 GM PACK PO PRN (19:01)
[2023-12-04] MEDS ORDERED: ONDANSETRON INJ 2 MG/ML 2 ML VIAL IV PRN (19:01)
[2023-12-04] MEDS ORDERED: MAGNESIUM HYDROXIDE SUSP 30 ML UDC PO PRN (19:01)
[2023-12-04 19:20] LABS: Appearance Urine Clear (Clear); Bacteria Urine Automated Negative (Negative); Bilirubin Urine Negative (Negative); Blood Urine Negative (Negative); Cast Urine Automated 0 /lpf (0-5); Color Urine Yellow; Epithelial Cell Urine Auto 0-5 /lpf (0-5); Glucose Urine UA Negative (Negative); Ketones Urine Negative (Negative); Leukocyte Esterase Urine Trace (Negative); Nitrite Urine Negative (Negative); Protein Urine Negative (Negative); RBC Urine Automated 0-4 /hpf (0-4); Specific Gravity Urine 1.005 (1.000-1.030); Urobilinogen Urine Negative (Negative); pH Urine 7.5 (4.5-7.5)
[2023-12-04 20:01] LABS: Adenovirus PCR Not Detected (NotDetected); Bordetella parapertussis PCR Not Detected (NotDetected); Bordetella pertussis PCR Not Detected (NotDetected); Chlamydia pneumoniae PCR Not Detected (NotDetected); Coronavirus 229E PCR Not Detected (NotDetected); Coronavirus CoV-2 (COVID19)PCR Not Detected (NotDetected); Coronavirus HKU1 PCR Not Detected (NotDetected); Coronavirus NL63 PCR Not Detected (NotDetected); Coronavirus OC43PCR Not Detected (NotDetected); Human Metapneumovirus PCR Not Detected (NotDetected); Influenza A PCR Not Detected (NotDetected); Influenza B PCR Not Detected (NotDetected); Mycoplasma pneumoniae PCR Not Detected (NotDetected); Parainfluenza Virus 1 PCR Not Detected (NotDetected); Parainfluenza Virus 2 PCR Not Detected (NotDetected); Parainfluenza Virus 3 PCR Not Detected (NotDetected); Parainfluenza Virus 4 PCR Not Detected (NotDetected); Respiratory Syncytial VirusPCR Not Detected (NotDetected); Rhinovirus/Enterovirus PCR Not Detected (NotDetected)
--- OUTSIDE RECORDS SUMMARY | 2023-12-04 21:50 | External Medical Summary | Summary of Care ---
Author Name Unknown Organization [facility] Address [address] [place] [address] Phone [phone] Care Team Providers Care Power Saw Operator Name Role Phone Saundra Nicholson Primary Care Provider [phone] Reason for Visit * Reason Comments Left Message Encounter Details Date Type Department Care Team (Late st Contact Info) Description 11/28/2023 7:00 AM EST Pharmacy Neurology, [facility] [address] [place] [address] [facility], Pharmacist Neurology [address] [place] [address] Multiple sclerosis (HCC)* Allergies Active Allergy Reactions Criticality Noted Date Comments Adhesive Tape High Other reaction(s): welts Bee Venom 03/08/2023 Ciprofloxacin Hives 05/25/2013 Latex Hives 05/25/2013 Prednisone 12/14/2020 Other reaction(s): patient takes new drug for MS called Ocrevus steroids cause drug interactions seziures patient unable to have prednisone Red Dye Rash 05/03/2016 PATIENT REPORTS SHE WAS TESTED DUE TO RASH AND WAS TOLD SHE IS ALLERGIC TO RED #40 Valium 09/04/2013 BLACK VOMIT documented as of this encounter (statuses as of 11/28/2023) Medications Medication Sig Dispensed Refills Start Date End Date Status rOPINIRole (REQUIP) 0.25 MG Tablet Take 1 tab at bedtime for 2 week. Then increase to 2 tabs at bedtime for restless leg syndrome. 60 Tab 5 2018 Active Biotin 2500 MCG CAPS Take 5,000 mg by mouth. 0 01/08/2020 Active Omeprazole 40 MG Oral Capsule Delayed Release (PriLOSEC) 0 11/11/2020 Active Vitamin C 500 MG Oral Tablet Chewable Take 2,500 mg by mouth daily. Pt states 0 Active B-12 500 MCG Oral Tablet Take by mouth. Two a day 0 Active SUMAtriptan Succinate 50 MG Oral Tablet (Imitrex) Take 1 tab as needed for migraines. Can take 2nd tab if needed after 2 hours. No more than 2 tabs in a day. No more than 9 tabs in a month. 9 Tablet 5 09/20/2021 Active Acetaminophen 325 MG Oral Tablet (Tylenol) Take 2 Tablets by mouth as needed (Pre-Medication: 30 min prior to Ocrevus infusion every six months.). 30 Tablet 0 11/27/2022 Active Acetaminophen 325 MG Oral Tablet (Tylenol) Take 2 Tablets by mouth as needed (for mild to moderate reaction (infusion reaction protocol)). 2 Tablet 11 11/27/2022 Active diphenhydrAMINE HCl 50 MG/ML Injection Solution (Benadryl) Inject 50 mg intravenously as needed (Pre-Medication 30 min prior to Ocrevus infusion). 1 mL 1 11/27/2022 Active diphenhydrAMINE HCl 50 MG/ML Injection Solution (Benadryl) 25 mg IV push, may repeat x 1 dose, then 50 mg every 2 - 3 hours as needed for anaphylaxis 2 mL 11/27/2022 Active diphenhydrAMINE HCl 50 MG/ML Injection Solution (Benadryl) Inject 25 mg intravenously as needed (Mild to moderate infusion reaction (infusion reaction protocol)). 1 mL 11/27/2022 Active EPINEPHrine (Anaphylaxis) 1 MG/ML Injection Solution Inject 0.3 mL into a large muscle as needed for Anaphylaxis (severe allergic reaction). May repeat every 15 min as needed per infusion reaction protocol 2 mL 11/27/2022 Active Hydrocortisone Sod Suc (PF) 100 MG Injection Solution Reconstituted (Solu-CORTEF) Inject 100 mg intravenously as needed for Anaphylaxis (severe allergic reaction). TO BE ADMINISTERED IN THE EVENT OF ANAPHYLACTIC REACTION 2 mL 11/27/2022 Active methylPREDNISolone Sodium Succ 125 MG Injection Solution Reconstituted (SOLU-Medrol) Pre-Medication: Administer 125 mg Intravenously 30 min prior to Ocrevus infusion. 1 Each 1 11/27/2022 Active Sodium Chloride 0.9 % Intravenous Solution TO BE ADMINISTERED IN THE EVENT OF ANAPHYLACTIC REACTION 1000 mL 11/27/2022 Active Ocrevus 300 MG/10ML Intravenous Solution (Ocrelizumab)Indica tions:Multiple sclerosis (HCC) Administer 20 mL intravenously every 6 months. 20 mL 3 11/27/2022 Active Topiramate 200 MG Oral Tablet (topAMAX) TAKE ONE TABLET by mouth IN THE MORNING AND TWO tablets by mouth IN THE EVENING. 270 Tablet 3 12/24/2022 Active Lidocaine 5 % External Patch (Lidoderm)Indicatio ns:Multiple sclerosis (HCC) Place 1 Patch over 12 hours topically on the skin daily. 30 Patch 5 01/11/2023 Active Nortriptyline HCl 25 MG Oral Capsule (Pamelor)Indication s:Multiple sclerosis (HCC) Take 1 Capsule by mouth at bedtime. 90 Capsule 3 02/06/2023 Active Vitamin D2 50 MCG (2000 UT) Oral TabletIndications:M ultiple sclerosis (HCC) Take 1 Tablet by mouth in the morning. 90 Tablet 3 02/06/2023 Active Additional Information Patient not taking.Reported on 03/06/2023 Vitamin D3 50 MCG (2000 UT) Oral Tablet Take 1 Tablet by mouth in the morning. 90 Tablet 3 02/07/2023 Active Rosuvastatin Calcium 20 MG Oral Tablet (Crestor) Take 1 Tablet by mouth in the morning. 0 Active Loratadine 10 MG Oral Capsule Take 1 Capsule by mouth in the morning. 0 Active Amoxicillin-Pot Clavulanate 875-125 MG Oral Tablet (Augmentin) 1 Tablet. 0 03/05/2023 Active Apple Cider Vinegar 500 MG Oral Tablet DAILY IN THE MORNING 0 03/02/2023 Active Pre- Formula Oral Tablet Take 1 Tablet by mouth in the morning. 0 Active EpiPen 2-Suleiman 0.3 MG/0.3ML Injection Solution Auto-injectorIndica tions:Bee sting allergy For a severe reaction: Place orange end against the outer thigh, press firmly, hold in place for 10 seconds and go to the Emergency room. 2 Each 1 03/08/2023 Active Floranex Oral TabletIndications:D ental infection,Abdominal pain, generalized Take 1 Each by mouth daily. 30 Tablet 11 03/09/2023 Active Modafinil 100 MG Oral Tablet (Provigil)Indicatio ns:Multiple sclerosis (HCC) TAKE ONE TABLET BY MOUTH IN THE MORNING 90 Tablet 0 08/26/2023 Active documented as of this encounter (statuses as of 11/28/2023) Active Problems Problem Noted Date Diagnosed Date Food insecurity 03/11/2023 Overview: Per [facility] Protocol Rash and nonspecific skin eruption 06/14/2015 Left hemiparesis 06/13/2015 Facial droop 06/13/2015 Weakness on right side of face 06/13/2015 Chronic daily headache 09/04/2013 Migraine with aura 09/04/2013 Cervicalgia 09/04/2013 Titubation 06/08/2013 Headache 06/08/2013 Overview: ICD-10 update of inactive term Headache 05/26/2013 Overview: ICD-10 update of inactive term Nausea with vomiting 05/25/2013 Epileptic seizure 05/25/2013 Endometriosis 05/25/2013 Overview: Diagnosed in 1997 Restless leg syndrome 05/25/2013 Hyperlipidemia 05/25/2013 Arnold-Chiari malformation 05/25/2013 Foot drop, left 05/25/2013 Overview: Diagnosed 1 year ago Seizure disorder 05/25/2013 Overview: Diagnosed in childhood 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 Multiple sclerosis 05/25/2013 Overview: Diagnosed in 1999 documented as of this encounter (statuses as of 11/28/2023) Resolved Problems Problem Noted Date Diagnosed Date Resolved Date White matter disease 06/14/2015 018 Increased anion gap metabolic acidosis 06/14/2015 06/14/2015 Bug bites 06/14/2015 12/30/2017 documented as of this encounter (statuses as of 11/28/2023) Immunizations Name Administration Dates Next Due Pneumococcal Polysaccharide PPV23 (Pneumovax) Seasonal Influenza, Split, IIV3, With Preserve, Inj 06/15/2015 documented as of this encounter Social History Tobacco Use Types Packs/Day Years Used Date Smoking Tobacco: Former Cigarettes Q uit: 04/06/2019 Smokeless Tobacco: Never Alcohol Use Standard Drinks/Week Comments Yes 0.8 (1 standard drink = 0.6 oz p ure alcohol) OCCASIONAL WINE Hunger Vital Sign Answer Date Recorded Within the past 12 months, y ou worried that your food would run out before you got the money to buy more. Sometimes true Within the past 12 months, t he food you bought just didn't last and you didn't have money to get more. Sometimes true 02/2023 Sex and Gender Information Value Date Recorded Sex Assigned at Female 03/05/2023 1:53 PM EDT Gender Identity Female 03/05/2023 1:53 PM EDT Sexual Orientation Straight 03/05/2023 1: 53 PM EDT Job Start Date Occupation Industry Not on file Not on file Not on file documented as of this encounter Functional Status Functional Status Response Date of Assess ment Are you deaf or do you have serious difficulty h earing? No 10/10/2017 Are you blind or do you have serious difficulty seeing, even when wearing glasses? No 10/10/2017 Do you have serious difficul ty walking or climbing stairs? (5 years old or older) Yes 10/10/2017 Do you have difficulty dress ing or bathing? (5 years old or older) No 10/10/2017 Because of a physical, menta l, or emotional condition, do you have difficulty doing errands alone such as visiting a doctor s office or shopping? (15 years old or older) No 10/10/19 18 Cognitive Status Response Date of Assessm ent Because of a physical, menta l, or emotional condition, do you have serious difficulty concentrating, remembering, or making decisions? (5 years old or older) No 10/10/2017 documented as of this encounter Progress Notes * Leonor Babb, air cargo agent - 11/28/2023 2:35 PM EST Patient Phone Numbers Attempt 1 Left message reminder blood work is due. Follow up in 1-2 week(s) for results. Thank you, Leonor Babb CPhT [employer] [facility] 11/28/2023 2:36 PM documented in this encounter Plan of Treatment Upcoming Encounters Date Type Department Care Team (Late st Contact Info) Description 12/05/2023 7:00 AM EST Pharmacy Neurology, [facility] [address] [place] [address] [facility], Pharmacist Neurology [address] [place] [address] Health Maintenance Due Date Last Done Comments COVID-19 Vaccine (#1) 1977 Depression Screening 1984 HIV Screening 1987 Hepatitis B (1 of 3 - 19+ 3-dose series) 1991 Zoster Vaccines (1 of 2) 1991 Pneumococcal Vaccine: Pediatrics (0 to 5 Years) and At-Risk Patients (6 to 64 Years) (2 of 2 - PCV) 06/15/2016 06/15/2015 Cologuard 2017 Fecal Occult Blood Test 2017 Sigmoidoscopy 2017 Influenza Vaccine (FLU shot) (#1) 2023 07/22/2020, 10/12/2019, 06/15/2015 Mammogram 11/20/2024 11/20/2023, 11/01, 11/13/2023, Additional history exists Lipid Panel 05/24/2028 05/24/2023, 06/30, 03/27/2022, Additional history exists DTaP,Tdap,and Td Vaccines (2 - Td or Tdap) 05/02/2030 05/02/2020 Colonoscopy 03/11/2033 03/11/2023 Colorectal Cancer Screening 03/11/2033 Hepatitis C Screening Completed 12/24/2017 GARDASIL-HPV IMMUNIZATION SERIES Aged Out No longer eligible based on patient's age to complete this topic MENINGOCOCCAL (MENACTRA/MENVEO) Aged Out No longer eligible based on patient's age to complete this topic documented as of this encounter Medical Devices Implanted Type [employer] Professional Device Identifier Shelf Expiration Date Model / Serial / Lot Graft Duramatrix Onlay 3x3 In - [id number] Implanted:Qty: 1 on 08/07/2013 [place] [facility] [place] Spine Cervical COLLAGEN MATRIX 04/29/2015 [id number] / / [id number] documented as of this encounter Visit Diagnoses Diagnosis Multiple sclerosis (HCC)- Primary Multiple sclerosis documented in this encounter Advance Directives Latest Code Status on File Code Status Date Activated Date Inactivated Comments Full Code 05/10/2016 9:58 AM 05/10/2016 4:44 PM This order reflects the patients wishes and were consensually agreed upon. Code Status History Code Status Date Activated Date Inactivated Comments Full Code 02/06/2016 3:00 PM 02/06/2016 8:48 PM This or kirti reflects the patients wishes and were consensually agreed upon. Full Code 06/12/2015 11:49 PM 06/15/2015 6:33 PM This order reflects the patients wishes and were consensually agreed upon. Question Answer Comments Discussion of Advance Directives occurred with: Patient Does the patient have a Living Will? No Does the patient have Health Care Power of House Fellow? No Full Code 08/07/2013 11:47 AM 08/10/2013 9:02 PM Thi s order reflects the patients wishes and were consensually agreed upon. Question Answer Comments Discussion of Advance Directives occurred with: Not Discussed Full Code 08/07/2013 5:37 AM 08/07/2013 11:47 AM This order reflects the patients wishes and were consensually agreed upon. Care Teams Power Saw Operator Relationship Specialty Start Date End Date Saundra Nicholson CRNP NPMisty: [phone] [address] [place] [address] PCP - General Nurse Practitioner 04/10/21 documented as of this encounter
[2023-12-04] MEDS: GADOBUTROL 65ML VIAL IV ONE (23:20)
[2023-12-04] MEDS: TOPIRAMATE 100 MG TAB PO SCH (23:47)
[2023-12-04] MEDS: ENOXAPARIN INJ 40 MG/0.4 ML SYR SQ SCH (23:48)
[2023-12-04] MEDS: rOPINIRole HCL 2 MG TABLET PO SCH (23:48)
[2023-12-04] MEDS: NORTRIPTYLINE HCL 10 MG CAP PO SCH (23:48)
--- NOTE | 2023-12-05 00:02 | Magnetic Resonance Report ---
Exam(s): MRI HEAD W/WO Contrast IV Amt: 6ml gadavist EXAM: MR Head Without and With Intravenous Contrast CLINICAL HISTORY: Reason for exam: MS flare. TECHNIQUE: Magnetic resonance images of the head/brain without and with intravenous contrast in multiple planes. CONTRAST: Patient received 6ml gadavist of IV contrast COMPARISON: No relevant prior studies available. FINDINGS: Brain: No restricted diffusion. No enhancing lesion. Pericallosal and subcortical T2/flair hyperintensities consistent with MS plaques. No hemorrhage. Ventricles: Unremarkable. No ventriculomegaly. Bones/joints: Unremarkable. No acute fracture. Sinuses: Unremarkable as visualized. No acute sinusitis. Mastoid air cells: Unremarkable as visualized. No mastoid effusion. Orbits: Unremarkable as visualized. IMPRESSION: Scattered chronic appearing MS plaques. No evidence of active demyelination. Electronically signed by: Zach Damon MD 12/05/23 00:02 AM
--- NOTE | 2023-12-05 00:14 | Magnetic Resonance Report ---
Exam(s): MRI C SPINE EXAM: MR Cervical Spine Without Intravenous Contrast CLINICAL HISTORY: Reason for exam: r/o ms flare. TECHNIQUE: Magnetic resonance images of the cervical spine without intravenous contrast in multiple planes. COMPARISON: No relevant prior studies available. FINDINGS: Vertebrae: Unremarkable. No acute fracture. Spinal cord: Normal cord signal. No demyelinating plaque or abnormal enhancement. Soft tissues: Unremarkable. DISCS/SPINAL CANAL/NEURAL FORAMINA: C2-C3: Unremarkable. No significant disc disease. No stenosis. C3-C4: Unremarkable. No significant disc disease. No stenosis. C4-C5: Unremarkable. No significant disc disease. No stenosis. C5-C6: Unremarkable. No significant disc disease. No stenosis. C6-C7: Unremarkable. No significant disc disease. No stenosis. C7-T1: Unremarkable. No significant disc disease. No stenosis. IMPRESSION: No evidence of demyelination. Electronically signed by: Zach Damon MD 12/05/23 00:13 AM
[2023-12-05 04:07] LABS: Hematocrit (blood only) 37.9 % (37.0-47.0); Hemoglobin 13.2 g/dl (12.0-16.0); Lymphocytes # (auto) 0.34 K/uL (1.20-3.40); Lymphocytes % (auto) 13.2 %; Mean Corpuscular Hemoglobin 31.4 pg (25.0-34.0); Mean Corpuscular Hgb Conc 34.8 g/dL (32.0-36.0); Mean Corpuscular Volume 90.2 fL (80.0-100.0); Mean Platelet Volume 10.4 fL (9.4-12.4); Monocytes # (auto) 0.03 K/uL (0.11-0.59); Monocytes % (auto) 1.2 %; Neutrophils # (auto) 2.21 K/uL (1.40-6.50); Neutrophils % (auto) 85.6 %; Platelet Count 299 K/uL (130-400); RDW Coefficient of Variation 11.4 % (11.5-14.5); RDW Standard Deviation 37.7 fL (36.4-46.3); White Blood Count 2.58 K/ul (4.8-10.8)
[2023-12-05 04:17] LABS: Albumin Globulin Ratio 1.9 (0.9-2); Albumin Level 4.2 gm/dl (3.4-5.0); BUN Creatinine Ratio 7.4 (10-20); Bilirubin,Total 0.3 mg/dl (0.2-1.0); Creatinine Clr Calc Pharmacy 84.5 ml/min; Est GFR (African American) 117.4 ml/min; Est GFR (Non-African American) 101.3 ml/min; Globulin 2.2 gm/dl (2.5-4.0); Potassium 3.9 mmol/L (3.5-5.1); Total Protein 6.4 gm/dl (6.0-8.3)
--- NOTE | 2023-12-05 07:02 | XRay Report ---
XR chest 1V portable CLINICAL HISTORY: eval for infection TECHNIQUE: Single frontal radiograph of the chest was obtained. Comparison: Comparison is made to chest radiograph 03/02/2023 FINDINGS: No lines and tubes are seen. The cardiomediastinal silhouette is normal. The lungs are clear. No evid ence of pleural effusion or pneumothorax. IMPRESSION: No acute abnormalities and in particular no radiographic evidence of pneumonia. ACT 112: Negative or not required by law. Electronically signed by: Tin Del Rio M.D. 12/05/2023 7:01 AM
--- NOTE | 2023-12-05 07:57 | Hospitalist Progress Note ---
Date of Service December 05, 2023 Assessment & Plan (1) Multiple sclerosis: (2) Facial droop: (3) History of seizure: Plan This is a 53-year-old female who has a significant past medical history of relapsing remitting MS, seizure disorder, arnold chiari malformation, essential tremors, history of migraine and RLS who presents to ED due to concern for possible MS flare. Possible MS flare admit to med tele received give 1g Solumedrol x 1 on admission Obtained MRI Brain/C-spine with contrast MRI brain - Scattered chronic appearing MS plaques. No evidence of active demyelination. MRI cervical spine - No evidence of demyelination. Neurology consulted - continue Solumedrol. Will also obtain MR thoracic spine Infectious w/u to include CXR, UA, blood cultures, resp biofire resp. biofire - negative UA- negat. CXR - No acute abnormalities and in particular no radiographic evidence of pneumonia. Blood cultx - pending exposure to RSV in elderly neighbor and diarrheal illness next week anti emetics, analgesia ordered pt is due in the upcoming weeks for her ocrevus infusion continue provigil for daily fatigue follows [facility] and [facility] neuro - has insurance issues - needs to discuss with - otherwise may need to switch neurologist (She wants to stay with [facility] neurology as she has been with them since she was young) Hx of seizure d/o arnold chiari malformation continue topamax RLS continue requip Hx of migraines continue current meds DVT ppx: SQ lovenox FULL CODE PCP: JESSICA Wong Admission and Anticipated Discharge Date Admission Date: December 04, 2023 Subjective Pt seen in follow-up of possible MS flare, facial droop, left lower extremity weakness Recent viral infection, diarrhea Currently sitting up in bed, in no acute distress No fever chills chest pain shortness of breath. No abdominal pain nausea vomiting. Still has facial droop, and lower extremity weakness, however feels improved after Solu-Medrol Neurology consulted and discussed with - recommend to continue with Solu-Medrol, and obtaining MRI of thoracic spine. Review of Systems Review of Systems: All systems reviewed & are unremarkable except as noted in Subjective Physical Exam Physical Exam: GENERAL: AxOx4, non toxic, +notable focal neuro deficits HEENT: NC, AT. MMM. EOMI, clear conjunctiva, oropharynx clear. NECK: Supple without lymphadenopathy. No stiffness or restricted ROM. HEART: Normal rate and regular rhythm, normal S1/S1, no m/r/g LUNGS: CTAB, moving air well. No crackles or wheezes are heard. ABDOMEN: Soft, nontender, nondistended with good bowel sounds heard. BACK: No CVAT, no obvious deformity. EXTREMITIES: Without cyanosis, clubbing or edema. NEUROLOGICAL: right facial droop/nasolabial flattening, lips unable to part on right side, left lower extremity 3/5 strength, right lower extremity 5/5 Skin: Warm and dry, area of erythema along forehead Results & Data Results & Data Vital Signs (Past 12 Hours) Vital Signs Pulse Resp BP Pulse Ox 12/04/23 20:02 76 18 120/80 100 Laboratory Results 12/05/23 12/04/23 12/04/23 Range/Units 03:19 18:49 18:46 WBC 2.58 L (4.8-10.8) K/ul RBC 4.20 (4.20-5.40) M/uL Hgb 13.2 (12.0-16.0) g/dl Hct 37.9 (37.0-47.0) % MCV 90.2 (80.0-100.0) fL MCH 31.4 (25.0-34.0) pg MCHC 34.8 (32.0-36.0) g/dL RDW Std Deviation 37.7 (36.4-46.3) fL RDW Coeff of Pina 11.4 L (11.5-14.5) % Plt Count 299 (130-400) K/uL MPV 10.4 (9.4-12.4) fL Immature Gran % (Auto) 0.0 % Neut % (Auto) 85.6 % Lymph % (Auto) 13.2 % [place] % (Auto) 1.2 % Eos % (Auto) 0.0 % Baso % (Auto) 0.0 % Neut # (Auto) 2.21 (1.40-6.50) K/uL Lymph # (Auto) 0.34 L (1.20-3.40) K/uL [place] # (Auto) 0.03 L (0.11-0.59) K/uL Eos # (Auto) 0.00 (0.00-0.50) K/uL Baso # (Auto) 0.00 (0.00-0.20) K/uL Immature Gran # (Auto) 0.00 L (0.01-0.20) K/uL Sodium 140 (136-145) mmol/L Potassium 3.9 (3.5-5.1) mmol/L Chloride 111 H (98-107) mmol/L Carbon Dioxide 21 (21-32) mmol/L Anion Gap 8 (3-11) BUN 5 L (6-23) mg/dl Creatinine 0.68 (0.6-1.2) mg/dl Est Cr Clr Drug Dosing 84.5 ml/min Est GFR ( Amer) 117.4 ml/min Est GFR (Non-Af Amer) 101.3 ml/min BUN/Creatinine Ratio 7.4 L (10-20) Glucose 148 H (70-99(Fasting)) mg/dl Calcium 9.0 (8.6-10.3) mg/dl Magnesium 2.0 (1.7-2.4) mg/dl Total Bilirubin 0.3 (0.2-1.0) mg/dl AST 11 L (13-39) U/L ALT 11 (7-52) U/L Alkaline Phosphatase 84 (34-104) U/L Total Protein 6.4 (6.0-8.3) gm/dl Albumin 4.2 (3.4-5.0) gm/dl Globulin 2.2 L (2.5-4.0) gm/dl Albumin/Globulin Ratio 1.9 (0.9-2) Urine Color Yellow Urine Appearance Clear (Clear) Urine pH 7.5 (4.5-7.5) Ur Specific Soso 1.005 (1.000-1.030) Urine Protein Negative (Negative) Urine Glucose (UA) Negative (Negative) Urine Ketones Negative (Negative) Urine Blood Negative (Negative) Urine Nitrite Negative (Negative) Urine Bilirubin Negative (Negative) Urine Urobilinogen Negative (Negative) Ur Leukocyte Esterase Trace H (Negative) Urine WBC (Auto) 1-5 (0-5) /hpf Urine RBC (Auto) 0-4 (0-4) /hpf U Hyaline Cast (Auto) 0 (0-5) /lpf U Epithel Cells (Auto) 0-5 (0-5) /lpf Urine Bacteria (Auto) Negative (Negative) Adenovirus (PCR) Not Detected (NotDetected) B. pertussis DNA (PCR) Not Detected (NotDetected) B.parapertussis DNA PCR Not Detected (NotDetected) C. pneumoniae DNA (PCR) Not Detected (NotDetected) Coronavirus OC43 (PCR) Not Detected (NotDetected) Coronavirus HKU1 (PCR) Not Detected (NotDetected) Coronavirus 229E (PCR) Not Detected (NotDetected) SARS-CoV-2 (PCR) Not Detected (NotDetected) Coronavirus NL63 (PCR) Not Detected (NotDetected) Human Metapneumovir PCR Not Detected (NotDetected) Influenza Type A (PCR) Not Detected (NotDetected) Influenza Type B (PCR) Not Detected (NotDetected) M. pneumoniae (PCR) Not Detected (NotDetected) Parainfluenza 1 (PCR) Not Detected (NotDetected) Parainfluenza 2 (PCR) Not Detected (NotDetected) Parainfluenza 3 (PCR) Not Detected (NotDetected) Parainfluenza 4 (PCR) Not Detected (NotDetected) RSV (PCR) Not Detected (NotDetected) Entero/Rhino (PCR) Not Detected (NotDetected) 12/04/23 Range/Units 12:52 WBC 5.09 (4.8-10.8) K/ul RBC 4.80 (4.20-5.40) M/uL Hgb 15.4 (12.0-16.0) g/dl Hct 44.0 (37.0-47.0) % MCV 91.7 (80.0-100.0) fL MCH 32.1 (25.0-34.0) pg MCHC 35.0 (32.0-36.0) g/dL RDW Std Deviation 39.5 (36.4-46.3) fL RDW Coeff of Pina 11.8 (11.5-14.5) % Plt Count 335 (130-400) K/uL MPV 10.7 (9.4-12.4) fL Immature Gran % (Auto) 0.2 % Neut % (Auto) 54.2 % Lymph % (Auto) 36.5 % [place] % (Auto) 7.9 % Eos % (Auto) 0.6 % Baso % (Auto) 0.6 % Neut # (Auto) 2.76 (1.40-6.50) K/uL Lymph # (Auto) 1.86 (1.20-3.40) K/uL [place] # (Auto) 0.40 (0.11-0.59) K/uL Eos # (Auto) 0.03 (0.00-0.50) K/uL Baso # (Auto) 0.03 (0.00-0.20) K/uL Immature Gran # (Auto) 0.01 (0.01-0.20) K/uL Sodium 138 (136-145) mmol/L Potassium 3.6 (3.5-5.1) mmol/L Chloride 105 (98-107) mmol/L Carbon Dioxide 25 (21-32) mmol/L Anion Gap 8 (3-11) BUN 4 L (6-23) mg/dl Creatinine 0.67 (0.6-1.2) mg/dl Est Cr Clr Drug Dosing 85.8 ml/min Est GFR ( Amer) 118.0 ml/min Est GFR (Non-Af Amer) 101.8 ml/min BUN/Creatinine Ratio 6.0 L (10-20) Glucose 83 (70-99(Fasting)) mg/dl Calcium 9.8 (8.6-10.3) mg/dl Magnesium (1.7-2.4) mg/dl Total Bilirubin 0.3 (0.2-1.0) mg/dl AST 16 (13-39) U/L ALT 14 (7-52) U/L Alkaline Phosphatase 96 (34-104) U/L Total Protein 8.0 (6.0-8.3) gm/dl Albumin 5.3 H (3.4-5.0) gm/dl Globulin 2.7 (2.5-4.0) gm/dl Albumin/Globulin Ratio 2.0 (0.9-2) Urine Color Urine Appearance (Clear) Urine pH (4.5-7.5) Ur Specific [place] (1.000-1.030) Urine Protein (Negative) Urine Glucose (UA) (Negative) Urine Ketones (Negative) Urine Blood (Negative) Urine Nitrite (Negative) Urine Bilirubin (Negative) Urine Urobilinogen (Negative) Ur Leukocyte Esterase (Negative) Urine WBC (Auto) (0-5) /hpf Urine RBC (Auto) (0-4) /hpf U Hyaline Cast (Auto) (0-5) /lpf U Epithel Cells (Auto) (0-5) /lpf Urine Bacteria (Auto) (Negative) Adenovirus (PCR) (NotDetected) B. pertussis DNA (PCR) (NotDetected) B.parapertussis DNA PCR (NotDetected) C. pneumoniae DNA (PCR) (NotDetected) Coronavirus OC43 (PCR) (NotDetected) Coronavirus HKU1 (PCR) (NotDetected) Coronavirus 229E (PCR) (NotDetected) SARS-CoV-2 (PCR) (NotDetected) Coronavirus NL63 (PCR) (NotDetected) Human Metapneumovir PCR (NotDetected) Influenza Type A (PCR) (NotDetected) Influenza Type B (PCR) (NotDetected) M. pneumoniae (PCR) (NotDetected) Parainfluenza 1 (PCR) (NotDetected) Parainfluenza 2 (PCR) (NotDetected) Parainfluenza 3 (PCR) (NotDetected) Parainfluenza 4 (PCR) (NotDetected) RSV (PCR) (NotDetected) Entero/Rhino (PCR) (NotDetected) Medications Administered Current Inpatient Medications Acetaminophen (Acetaminophen 325 Mg Tab) 650 mg PO Q4H PRN PRN Reason: Pain or Fever Stop: 01/03/24 19:00 Al Hydrox/Mg Hydrox/Simethicone (Aluminum/Magnesium Susp 30 Ml Udc) 15 ml PO Q4H PRN PRN Reason: Dyspepsia Stop: 01/03/24 19:00 Enoxaparin Sodium (Enoxaparin Inj 40 Mg/0.4 Ml Syr) 40 mg SQ HS PORTER Stop: 01/03/24 20:59 Last Admin: 12/04/23 23:48 Dose: 40 mg Loratadine (Loratadine 10 Mg Tab) 10 mg PO QAM [facility] Stop: 01/04/24 08:59 Magnesium Hydroxide (Magnesium Hydroxide Susp 30 Ml Udc) 30 ml PO Q12H PRN PRN Reason: Constipation Stop: 01/03/24 19:00 Modafinil (Modafinil 100 Mg Tab) 100 mg PO QAM [facility] Stop: 01/04/24 08:59 Nortriptyline HCl (Nortriptyline Hcl 10 Mg Cap) 10 mg PO HS PORTER Stop: 01/03/24 20:59 Last Admin: 12/04/23 23:48 Dose: 10 mg Ondansetron HCl (Ondansetron Inj 2 Mg/Ml 2 Ml Vial) 4 mg IV Q6H PRN PRN Reason: Nausea Stop: 01/03/24 19:00 Pantoprazole Sodium (Pantoprazole 40 Mg Tab) 40 mg PO QAM [facility] Stop: 01/04/24 08:59 Polyethylene Glycol (Polyethylene (Miralax) 17 Gm Pack) 17 gm PO DAILY PRN PRN Reason: Constipation Stop: 01/03/24 19:00 Prenat Multivit/[place]/Iron/Folic Ac ( Vitamin 1 Tab) 1 tab PO QAM [facility] Stop: 01/04/24 08:59 Propranolol HCl (Propranolol Hcl 10 Mg Tab) 10 mg PO DAILY [facility]TER Stop: 01/04/24 08:59 Ropinirole HCl (Ropinirole Hcl 2 Mg Tablet) 2 mg PO BID@1500,2100 [facility] Stop: 01/03/24 20:59 Last Admin: 12/04/23 23:48 Dose: 2 mg Topiramate (Topiramate 100 Mg Tab) 200 mg PO DAILY [facility]TER Stop: 01/04/24 08:59 Topiramate (Topiramate 100 Mg Tab) 400 mg PO HS [facility] Stop: 01/03/24 20:59 Last Admin: 12/04/23 23:47 Dose: 400 mg Vitamin D (Cholecalciferol 25 Mcg (1000 Units) Tab) 50 mcg PO QAM [facility] Stop: 01/04/24 08:59
[2023-12-05] MEDS: LORATADINE 10 MG TAB PO SCH (08:49)
[2023-12-05] MEDS: TOPIRAMATE 100 MG TAB PO SCH (08:50)
[2023-12-05] MEDS: PRENATAL VITAMIN 1 TAB PO SCH (08:51)
[2023-12-05] MEDS: PANTOprazole 40 MG TAB PO SCH (08:51)
[2023-12-05] MEDS: CHOLECALCIFEROL 25 MCG (1000 UNITS) TAB PO SCH (08:51)
[2023-12-05] MEDS: PROPRANOLOL HCL 10 MG TAB PO SCH (08:53)
[2023-12-05] MEDS: modafiniL 100 MG TAB PO SCH (09:20)
[2023-12-05] MEDS: ACETAMINOPHEN 325 MG TAB PO PRN (09:20)
--- NOTE | 2023-12-05 14:22 | Neurology Consultation ---
Date of Consultation December 05, 2023 Assessment & Plan (1) Multiple sclerosis: Possible MS exacerbation Recommend continue IV methylprednisolone 1 gram daily-max 5days Recommend obtain MRI thoracic spine with and without contrast Continue current medications/therapies Continue to monitor/control blood pressure blood glucose Continue metabolic workup, monitor renal function Keep euvolemic Continue to monitor for s/s of infection Recommend therapy/rehabilitative services to evaluate and treat VTE prophylaxis Telehealth Consultation Telehealth Information Telehealth Information: I performed this visit using a real-time telehealth connection between my location and the patients location ([facility]). After connecting through interactive tele-video, patient was identified by name and date of and/or wristband check.Patient (or authorized healthcare denial management representative) was informed that this was a telemedicine visit and it was being conducted confidentially over secure lines. My office door was closed and no one else was present in the room with me.Patient (or authorized healthcare denial management representative) provided consent to proceed with the visit, expressed an understanding of privacy and security of the telemedicine visit, and gave permission to have a hospital denial management representative in the room in order to assist with the visit and to conduct portions of the visit, as needed. I informed the patient (or authorized healthcare denial management representative) that I reviewed their record and presented the opportunity for them to ask any questions regarding the visit today. The patient agreed to participate. History of Present Illness Reason for Consultation: Concern for MS exacerbation Requesting Physician: Dr. Alfonso Attending Physician: Pancho Alfonso MD History of Present Illness 53yo female who has a significant past medical history including RRMS seizure urine elevation as well as tremors migraine and restless leg syndrome presented with concern of possible MS flare. She reports she knows she is usually having a flare when her right facial asymmetry is worsening/exacerbated. She also notably reports that she has been having loose stools/diarrhea. And may have been exposed to RSV. She reports she has been agreeable to ambulate without assistive device reports left lower extremity weakness. Notably yesterday she had Solu-Medrol now reporting some improvement in her LLE weakness. MRI brain and cervical spine both with and without contrast revealed no evidence of acute demyelination. I have explained my recommendation to continue steroids continue current outpatient medications and obtain an MRI with and without contrast of her thoracic spine. I have performed televideo consultation. Currently she is AAOx4. She denies chest pain palpitations shortness of breath. No reported changes in vision hearing dizziness syncope seizure-like activity paresthesia. Denies painful eye movements or diplopia. No report/concern of dysphagia. Denies changes in voice, no changes in vision or hearing. She is asking for a new Neurologist since she reports having a change in her insurance. I have explained, primary hospitalist team can assist with ambulatory referrals as needed. She is agreeable to undergo MRI T spine and continue steroids Allergies Allergy/AdvReac Type Severity Reaction Status Date / Time adhesive tape Allergy Unknown red bumps Verified 12/04/23 17:25 appear instantly, itching cephalexin Allergy Unknown chest Verified 12/04/23 17:25 tightness ciprofloxacin Allergy Unknown legs Verified 12/04/23 17:25 swelling, rash diazepam Allergy Unknown Vomiting Verified 12/04/23 17:25 latex Allergy Unknown red bumps Verified 12/04/23 17:25 appear instantly, itching red dye Allergy Unknown Rash Verified 12/04/23 17:25 Home Medications Medication Instructions Recorded Confirmed Type cholecalciferol (vitamin D3) 50 50 mcg PO QAM 03/02/23 12/04/23 History mcg (2,000 unit) tablet cyanocobalamin (vitamin B-12) 1,200 mcg sublingual QAM 03/02/23 12/04/23 History 5,000 mcg/mL sublingual drops (Vitamin B-12) loratadine 10 mg tablet (Claritin) 10 mg PO QAM 03/02/23 12/04/23 History modafinil 100 mg tablet 100 mg PO QAM 03/02/23 12/04/23 History ocrelizumab 30 mg/mL intravenous 0 mg IV .EVERY 6 MONTHS 03/02/23 12/04/23 History solution (Ocrevus) omeprazole 40 mg capsule,delayed 40 mg PO QAM 03/02/23 12/04/23 History release prenat.vits,adolph,pry-zvdl-aorvy 1 tab PO QAM 03/02/23 12/04/23 History ropinirole 2 mg tablet 2 mg PO UD 03/02/23 12/04/23 History sumatriptan succinate 50 mg tablet 50 mg PO UD PRN Migraine Headache 03/02/23 12/04/23 History topiramate 200 mg tablet 200 - 400 mg PO UD 03/02/23 12/04/23 History Medical Marijuana 1 dose PO UD PRN anxiety, pain 03/22/23 12/04/23 History Turmeric-Curcumin 2 tab PO QAM Fatigue 03/22/23 12/04/23 History krill oil 500 mg capsule 2,500 mg PO DAILY 11/28/23 12/04/23 History vitamin E 670 mg (1,000 unit) 0 mg PO DAILY 11/28/23 12/04/23 History capsule Apple Cider Gummies 500mg 1,000 mg PO DAILY 12/04/23 12/04/23 History Probiotic Powder Pkg 1 packet PO DAILY 12/04/23 12/04/23 History biotin 10,000 mcg capsule 10,000 mcg PO DAILY 12/04/23 12/04/23 History epinephrine 0.3 mg/0.3 mL 0.3 mg IM DIRECTED PRN 12/04/23 12/04/23 History injection, auto-injector .allergic reaction magnesium glycinate 100 mg tablet 400 mg PO HS 12/04/23 12/04/23 History nortriptyline 10 mg capsule 10 mg PO HS 12/04/23 12/04/23 History promethazine 6.25 mg/5 mL oral 6.25 mg PO DIRECTED PRN Nausea 12/04/23 12/04/23 History syrup propranolol 10 mg tablet 10 mg PO DAILY 12/04/23 12/04/23 History Patient History Medical History Facial droop chronic- right sided- recently worsened during [facility] admission for dental infection History of skin cancer removed from arm and face Depression History of COVID-19 08/2020, PCP office test at [facility], not hosp; sick for 1 month>resolved. Arnold-Chiari malformation 2012>[facility] [place]>had Chiari Malformation Deformation procedure, no seizures since procedure. History of epilepsy most recent seizure 2012; f/u dr. 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 hameed, [facility] Back problem hx Skin cancer Surgical History Hx laparoscopic cholecystectomy (04/05/23) Laparoscopic Cholecystectomy(Not Applicable) - Karly Maradiaga DO Hx of rotator cuff surgery lt. Hx of tubal ligation Hx of dilation and curettage Hx of hysterectomy History of open reduction and internal fixation (ORIF) procedure lt. ankle History of bladder surgery bladder sling Hx of appendectomy H/O colonoscopy (03/11/23) H/O esophagogastroduodenoscopy (03/11/23) Family History Mother Breast cancer Cancer Stroke Uncle Diabetes Father Heart disease Stroke Grandfather (Paternal) Heart disease Social History Smoking Status: Former smoker Second Hand Exposure: Yes (hx-family smoked); Do You Dip or Chew Tobacco: No; Hx Alcohol Use: No Hx Substance Use: No Preferred Language: Maori Communication Ability: Effective Visual Impairment: No Limitations Barrel Assembler Required: No Beliefs That Will Affect Care: None marital status: Current Living Situation: Other Current Living Situation Comment: roomate current occupational status: disabled How many Children do You have: 2 Feels Safe at Home: Declines to Answer and Hesitant to Answer Safety Concerns: Feels Safe At This Time Diet: gluten free, vegan and vegetarian during the past year weight has: decreased > 10 lbs Assistive Devices: Cane Physical Exam Neurological Examination: Mental Status: Awake and alert. Oriented to person, place, and time. Fluency naming repetition and comprehension appear grossly intact. Affect remains appropriate. CN testing: I: Denies changes in ability to smell II:Reports no changes in visual acuity III/IV/: No evidence of gaze preference, hippus, nystagmus or roving eye movements V: Facial sensation reportedly grossly intact to light touch bilaterally VII: Facial movements appear without evidence of asymmetry VIII: Hearing appears grossly intact to loud voice bilaterally IX/X: Palate appears to elevate symmetrically XI: Shoulder shrug appears symmetric/ grossly intact bilaterally XII: Tongue protrudes midline without evidence of biting Motor exam: LLE weakness persists Sensory: Sensation is reportedly grossly intact throughout Coordination: Deferred Reflexes: Deferred Gait: Deferred Results & Data Vital Signs (Past 12 Hours) Vital Signs Pulse Resp BP Pulse Ox O2 Del Method 12/05/23 13:59 97 H 18 131/82 97 Room Air 12/05/23 10:38 Room Air 12/05/23 08:53 96 H 18 116/87 99 Room Air Laboratory Results Abnormal lab results 12/04/23 12/05/23 Range/Units 18:46 03:19 WBC 2.58 L (4.8-10.8) K/ul RDW Coeff of Pina 11.4 L (11.5-14.5) % Lymph # (Auto) 0.34 L (1.20-3.40) K/uL [place] # (Auto) 0.03 L (0.11-0.59) K/uL Immature Gran # (Auto) 0.00 L (0.01-0.20) K/uL Chloride 111 H (98-107) mmol/L BUN 5 L (6-23) mg/dl BUN/Creatinine Ratio 7.4 L (10-20) Glucose 148 H (70-99(Fasting)) mg/dl AST 11 L (13-39) U/L Globulin 2.2 L (2.5-4.0) gm/dl Ur Leukocyte Esterase Trace H (Negative) Diagnostic Findings Head CT 12/04/23 14:51 CT head/brain wo con CLINICAL HISTORY: 53 years-old Female with facial droop, MS. Acute strokelike symptoms TECHNIQUE: Multiple axial CT images of the head were obtained without contrast. A dose lowering technique was utilized adhering to the principles of ALARA. CT DOSE: 625.8 mGy.cm COMPARISON: 03/02/2023 FINDINGS: No acute intracranial hemorrhage, midline shift, intracranial mass, hydrocephalus, territorial ischemia or abnormal extra-axial collection. Unchanged scattered white matter hypodensities. Prior suboccipital craniectomy. No acute calvarial fracture. Bilateral gracy bullosa. The paranasal sinuses, mastoid air cells, and middle ear cavities are clear. IMPRESSION: No acute intracranial abnormality. ACT 112: Negative or not required by law. The above report was generated using voice recognition software. It may contain grammatical, syntax or spelling errors. Electronically signed by: Nitin Booker M.D. 12/04/2023 4:55 PM Brain MRI 12/04/23 17:32 Exam(s): MRI HEAD W/WO Contrast IV Amt: 6ml gadavist EXAM: MR Head Without and With Intravenous Contrast CLINICAL HISTORY: Reason for exam: MS flare. TECHNIQUE: Magnetic resonance images of the head/brain without and with intravenous contrast in multiple planes. CONTRAST: Patient received 6ml gadavist of IV contrast COMPARISON: No relevant prior studies available. FINDINGS: Brain: No restricted diffusion. No enhancing lesion. Pericallosal and subcortical T2/flair hyperintensities consistent with MS plaques. No hemorrhage. Ventricles: Unremarkable. No ventriculomegaly. Bones/joints: Unremarkable. No acute fracture. Sinuses: Unremarkable as visualized. No acute sinusitis. Mastoid air cells: Unremarkable as visualized. No mastoid effusion. Orbits: Unremarkable as visualized. IMPRESSION: Scattered chronic appearing MS plaques. No evidence of active demyelination. Electronically signed by: Zach Damon MD 12/05/23 00:02 AM Cervical Spine MRI 12/04/23 17:32 Exam(s): MRI C SPINE EXAM: MR Cervical Spine Without Intravenous Contrast CLINICAL HISTORY: Reason for exam: r/o ms flare. TECHNIQUE: Magnetic resonance images of the cervical spine without intravenous contrast in multiple planes. COMPARISON: No relevant prior studies available. FINDINGS: Vertebrae: Unremarkable. No acute fracture. Spinal cord: Normal cord signal. No demyelinating plaque or abnormal enhancement. Soft tissues: Unremarkable. DISCS/SPINAL CANAL/NEURAL FORAMINA: C2-C3: Unremarkable. No significant disc disease. No stenosis. C3-C4: Unremarkable. No significant disc disease. No stenosis. C4-C5: Unremarkable. No significant disc disease. No stenosis. C5-C6: Unremarkable. No significant disc disease. No stenosis. C6-C7: Unremarkable. No significant disc disease. No stenosis. C7-T1: Unremarkable. No significant disc disease. No stenosis. IMPRESSION: No evidence of demyelination. Electronically signed by: Zach Damon MD 12/05/23 00:13 AM Chest X-Ray 12/04/23 17:48 XR chest 1V portable CLINICAL HISTORY: eval for infection TECHNIQUE: Single frontal radiograph of the chest was obtained. Comparison: Comparison is made to chest radiograph 03/02/2023 FINDINGS: No lines and tubes are seen. The cardiomediastinal silhouette is normal. The lungs are clear. No evidence of pleural effusion or pneumothorax. IMPRESSION: No acute abnormalities and in particular no radiographic evidence of pneumonia. ACT 112: Negative or not required by law. Electronically signed by: Tin Del Rio M.D. 12/05/2023 7:01 AM Medications Administered Home Medications Medication Instructions Recorded Confirmed Last Taken cholecalciferol (vitamin D3) 50 50 mcg PO QAM 03/02/23 12/04/23 04/04/23 08:00 mcg (2,000 unit) tablet cyanocobalamin (vitamin B-12) 1,200 mcg sublingual QAM 03/02/23 12/04/23 03/22/23 5,000 mcg/mL sublingual drops (Vitamin B-12) loratadine 10 mg tablet (Claritin) 10 mg PO QAM 03/02/23 12/04/23 04/03/23 modafinil 100 mg tablet 100 mg PO QAM 03/02/23 12/04/23 04/04/23 08:00 ocrelizumab 30 mg/mL intravenous 0 mg IV .EVERY 6 MONTHS 03/02/23 12/04/23 Unknown solution (Ocrevus) omeprazole 40 mg capsule,delayed 40 mg PO QAM 03/02/23 12/04/23 04/05/23 04:30 release prenat.vits,adolph,hft-gubk-qwshb 1 tab PO QAM 03/02/23 12/04/23 04/04/23 08:00 ropinirole 2 mg tablet 2 mg PO UD 03/02/23 12/04/23 04/04/23 22:00 sumatriptan succinate 50 mg tablet 50 mg PO UD PRN Migraine Headache 03/02/23 12/04/23 03/22/23 topiramate 200 mg tablet 200 - 400 mg PO UD 03/02/23 12/04/23 04/05/23 04:30 Medical Marijuana 1 dose PO UD PRN anxiety, pain 03/22/23 12/04/23 04/02/23 Turmeric-Curcumin 2 tab PO QAM Fatigue 03/22/23 12/04/23 03/22/23 krill oil 500 mg capsule 2,500 mg PO DAILY 11/28/23 12/04/23 Unknown vitamin E 670 mg (1,000 unit) 0 mg PO DAILY 11/28/23 12/04/23 Unknown capsule Apple Cider Gummies 500mg 1,000 mg PO DAILY 12/04/23 12/04/23 Unknown Probiotic Powder Pkg 1 packet PO DAILY 12/04/23 12/04/23 Unknown biotin 10,000 mcg capsule 10,000 mcg PO DAILY 12/04/23 12/04/23 Unknown epinephrine 0.3 mg/0.3 mL 0.3 mg IM DIRECTED PRN 12/04/23 12/04/23 Unknown injection, auto-injector .allergic reaction magnesium glycinate 100 mg tablet 400 mg PO HS 12/04/23 12/04/23 Unknown nortriptyline 10 mg capsule 10 mg PO HS 12/04/23 12/04/23 Unknown promethazine 6.25 mg/5 mL oral 6.25 mg PO DIRECTED PRN Nausea 12/04/23 12/04/23 Unknown syrup propranolol 10 mg tablet 10 mg PO DAILY 12/04/23 12/04/23 Unknown Active Medications Generic Name Dose Route Start Last Admin Trade Name Freq PRN Reason Stop Dose Admin Acetaminophen 650 mg 12/04/23 19:01 12/05/23 09:20 Acetaminophen 325 Mg Tab PO 01/03/24 19:00 650 mg Q4H PRN Administration Pain or Fever Enoxaparin Sodium 40 mg 12/04/23 21:00 12/04/23 23:48 Enoxaparin Inj 40 Mg/0.4 Ml Syr SQ 01/03/24 20:59 40 mg HS PORTER Administration Loratadine 10 mg 12/05/23 09:00 12/05/23 08:49 Loratadine 10 Mg Tab PO 01/04/24 08:59 10 mg QAM PORTER Administration Modafinil 100 mg 12/05/23 09:00 12/05/23 09:20 Modafinil 100 Mg Tab PO 01/04/24 08:59 100 mg QAM PORTER Administration Nortriptyline HCl 10 mg 12/04/23 21:00 12/04/23 23:48 Nortriptyline Hcl 10 Mg Cap PO 01/03/24 20:59 10 mg HS PORTER Administration Pantoprazole Sodium 40 mg 12/05/23 09:00 12/05/23 08:51 Pantoprazole 40 Mg Tab PO 01/04/24 08:59 40 mg QAM PORTER Administration Prenat Multivit/[place]/Iron/Folic Ac 1 tab 12/05/23 09:00 12/05/23 08:51 Vitamin 1 Tab PO 01/04/24 08:59 1 tab QAM PORTER Administration Propranolol HCl 10 mg 12/05/23 09:00 12/05/23 08:53 Propranolol Hcl 10 Mg Tab PO 01/04/24 08:59 10 mg DAILY PORTER Administration Ropinirole HCl 2 mg 12/04/23 21:00 12/04/23 23:48 Ropinirole Hcl 2 Mg Tablet PO 01/03/24 20:59 2 mg BID@1500,2100 PORTER Administration Topiramate 200 mg 12/05/23 09:00 12/05/23 08:50 Topiramate 100 Mg Tab PO 01/04/24 08:59 200 mg DAILY PORTER Administration Topiramate 400 mg 12/04/23 21:00 12/04/23 23:47 Topiramate 100 Mg Tab PO 01/03/24 20:59 400 mg HS PORTER Administration Vitamin D 50 mcg 12/05/23 09:00 12/05/23 08:51 Cholecalciferol 25 Mcg (1000 Units) Tab PO 01/04/24 08:59 50 mcg QAM PORTER Administration
[2023-12-05] MEDS: methylPREDNISolone 1,000 MG in DEXTROSE 5% 250 ML IV SCH (16:07)
[2023-12-05] MEDS: ALUMINUM/MAGNESIUM SUSP 30 ML UDC PO PRN (20:59)
[2023-12-05] MEDS: GADOBUTROL 65ML VIAL IV ONE (21:50)
--- NOTE | 2023-12-05 22:18 | Magnetic Resonance Report ---
Exam(s): MRI T SPINE W/WO Contrast IV Amt: 6ml gadavist EXAM: MR Thoracic Spine Without and With Intravenous Contrast CLINICAL HISTORY: Reason for exam: poss. MS flare. TECHNIQUE: Magnetic resonance images of the thoracic spine without and with intravenous contrast in multiple planes. CONTRAST: Patient received 6ml gadavist of IV contrast COMPARISON: No relevant prior studies available. FINDINGS: Vertebrae: Unremarkable. No acute fracture. Discs/spinal canal/neural foramina: No acute findings. No significant disc disease. No spinal canal stenosis. Spinal cord: Unremarkable. Normal signal. No abnormal enhancement. Soft tissues: Unremarkable. IMPRESSION: Normal thoracic spine MRI. Electronically signed by: Manan Salgado MD 12/05/23 22:17 PM
[2023-12-06 07:15] LABS: Hematocrit (blood only) 39.2 % (37.0-47.0); Mean Corpuscular Hemoglobin 32.2 pg (25.0-34.0); Mean Corpuscular Hgb Conc 35.7 g/dL (32.0-36.0); Mean Corpuscular Volume 90.1 fL (80.0-100.0); Mean Platelet Volume 10.3 fL (9.4-12.4); Platelet Count 354 K/uL (130-400); RDW Coefficient of Variation 11.8 % (11.5-14.5); RDW Standard Deviation 38.8 fL (36.4-46.3); Red Blood Count 4.35 M/uL (4.20-5.40); White Blood Count 9.16 K/ul (4.8-10.8)
[2023-12-06 07:50] LABS: BUN Creatinine Ratio 15.9 (10-20); Calcium 9.6 mg/dl (8.6-10.3); Creatinine Clr Calc Pharmacy 91.2 ml/min; Est GFR (African American) 120.4 ml/min; Est GFR (Non-African American) 103.9 ml/min; Magnesium 2.1 mg/dl (1.7-2.4); Phosphorus 3.9 mg/dl (2.5-4.9); Potassium 3.6 mmol/L (3.5-5.1)
--- NOTE | 2023-12-06 19:25 | Hospitalist Progress Note ---
Date of Service December 06, 2023 Assessment & Plan (1) Multiple sclerosis: (2) Facial droop: (3) History of seizure: Plan This is a 53-year-old female who has a significant past medical history of relapsing remitting MS, seizure disorder, arnold chiari malformation, essential tremors, history of migraine and RLS who presented to the ED due to concern for possible MS flare. Multiple Sclerosis Facial Droop Foot Drop Pt with hx of MS, follows with [facility] currently Dr Samantha Price Current treatment with Ocrevus, states she is due soon for a dose Believes her symptoms are consistent with an MS flare Lyme and tick borne testing pending Respiratory biofire negative UA not suggestive of infection Chest XR with no acute changes Blood Cx x2 NGTD Head CT unremarkable Brain MR noting scattered chronic MS plaques and no active demyelination Cervical spine MRI-no evidence of demyelination MRI thoracic spine unremarkable Received 1g Solumedrol x 1 on admission Neurology was consulted-appreciate recs -recommending high dose IV steroids for 5 days max Facial droop and foot drop currently improving Daytime Fatigue Continue provigil Hx of seizures Hx of migraines continue topamax for seizures Continue topamax, nortriptyline and propranolol for migraine prevention Essential Tremor Continue propanolol RLS continue requip GERD Continue ppi Diet: regular DVT ppx: SQ lovenox FULL CODE Dispo: PT recommending outpt PT after d/c Admission and Anticipated Discharge Date Admission Date: December 04, 2023 Subjective Pt was seen multiple times during the day. Intially was trying to figure out her insurance and who she should follow up with at discharge. At one point in tears. Later discussion of Neurology's recommendation for 5 days of IV steroids. Pt agreeable to staying. Notes she still has the foot drop. facial droop improving. Review of Systems 2 Review of Systems: All systems reviewed & are unremarkable except as noted in Subjective Physical Exam Physical Exam: General: Alert, oriented. No acute distress Skin: No noted rashes or bruises Psych: Appropriate mood and affect Neuro: improved facial droop, foot drop HEENT: NC/AT Chest: Nontender to palpation. CV: RRR, Normal s1, s2. No murmurs appreciated Resp: Breath sounds clear bilaterally, no increased effort of breathing. Abdomen:Soft, nontender, nondistended. No guarding. No organomegaly appreciated. Extremities: Left foot drop Results & Data Results & Data Vital Signs (Past 12 Hours) Vital Signs Temp Pulse Pulse Resp BP Pulse Ox O2 Del Method 12/06/23 12:11 36.6 C 117 H 20 108/74 96 Room Air 12/06/23 07:58 36.8 C 95 H 18 106/74 98 Room Air 12/06/23 07:03 94 H 12/06/23 03:22 37.3 C 98 H 18 111/74 95 Room Air
[2023-12-07 08:03] LABS: Hematocrit (blood only) 36.3 % (37.0-47.0); Mean Corpuscular Hemoglobin 32.3 pg (25.0-34.0); Mean Corpuscular Hgb Conc 35.8 g/dL (32.0-36.0); Mean Corpuscular Volume 90.1 fL (80.0-100.0); Platelet Count 300 K/uL (130-400); RDW Coefficient of Variation 11.9 % (11.5-14.5); RDW Standard Deviation 39.3 fL (36.4-46.3); Red Blood Count 4.03 M/uL (4.20-5.40); White Blood Count 9.59 K/ul (4.8-10.8)
[2023-12-07 08:24] LABS: Albumin Globulin Ratio 2.3 (0.9-2); Albumin Level 4.3 gm/dl (3.4-5.0); BUN Creatinine Ratio 19.4 (10-20); Bilirubin,Total 0.3 mg/dl (0.2-1.0); Calcium 9.2 mg/dl (8.6-10.3); Creatinine Clr Calc Pharmacy 85.8 ml/min; Est GFR (Non-African American) 101.8 ml/min; Globulin 1.9 gm/dl (2.5-4.0); Magnesium 2.1 mg/dl (1.7-2.4); Potassium 3.5 mmol/L (3.5-5.1); Total Protein 6.2 gm/dl (6.0-8.3)
--- NOTE | 2023-12-07 09:42 | Communication Note ---
Date of Service: December 07, 2023 EMR and documentation reviewed MRI of neuraxis without evidence of active demyelination At this time, from neurology perspective, there is no indication for continued high dose steroids Continue current therapies Dispo per primary/hospitalist team
--- NOTE | 2023-12-07 15:00 | Hospitalist Progress Note ---
Date of Service December 07, 2023 Assessment & Plan (1) Multiple sclerosis: (2) Facial droop: (3) History of seizure: Plan This is a 53-year-old female who has a significant past medical history of relapsing remitting MS, seizure disorder, arnold chiari malformation, essential tremors, history of migraine and RLS who presented to the ED due to concern for possible MS flare. Multiple Sclerosis Facial Droop Foot Drop Pt with hx of MS, follows with [facility] currently Dr Samantha Price Current treatment with Ocrevus, states she is due soon for a dose Believes her symptoms are consistent with an MS flare Lyme and tick borne testing pending Respiratory biofire negative UA not suggestive of infection Chest XR with no acute changes Blood Cx x2 NGTD Head CT unremarkable Brain MR noting scattered chronic MS plaques and no active demyelination Cervical spine MRI-no evidence of demyelination MRI thoracic spine unremarkable Received 1g Solumedrol x 1 on admission Neurology was consulted-appreciate recs -recommending high dose IV steroids for 5 days max Facial droop and foot drop currently improving PT/OT- appreciate recs Daytime Fatigue Continue provigil Hx of seizures Hx of migraines continue topamax for seizures Continue topamax, nortriptyline and propranolol for migraine prevention Essential Tremor Continue propanolol RLS continue requip GERD Continue ppi Diet: regular DVT ppx: SQ lovenox FULL CODE Dispo: PT recommending outpt PT after d/c Admission and Anticipated Discharge Date Admission Date: December 04, 2023 Subjective Pt states that she continues to have improvement in her facial droop and foot drop. Agreeable to working with PT as ordered today. Review of Systems Review of Systems: All systems reviewed & are unremarkable except as noted in Subjective Physical Exam Physical Exam: General: Alert, oriented. No acute distress Skin: No noted rashes or bruises Psych: Appropriate mood and affect Neuro: improved facial droop, foot drop HEENT: NC/AT Chest: Nontender to palpation. CV: RRR, Normal s1, s2. No murmurs appreciated Resp: Breath sounds clear bilaterally, no increased effort of breathing. Abdomen:Soft, nontender, nondistended. No guarding. No organomegaly appreciated. Extremities: Left foot drop Results & Data Results & Data Vital Signs (Past 12 Hours) Vital Signs Temp Pulse Pulse Resp BP Pulse Ox O2 Del Method 12/07/23 07:40 36.4 C L 89 16 106/73 97 Room Air 12/07/23 07:17 71 12/07/23 03:00 36.6 C 73 16 95/62 L 98 Room Air
[2023-12-08 06:27] LABS: Hematocrit (blood only) 35.9 % (37.0-47.0); Hemoglobin 12.3 g/dl (12.0-16.0); Mean Corpuscular Hemoglobin 31.9 pg (25.0-34.0); Mean Corpuscular Hgb Conc 34.3 g/dL (32.0-36.0); Mean Platelet Volume 10.4 fL (9.4-12.4); Platelet Count 278 K/uL (130-400); RDW Coefficient of Variation 11.9 % (11.5-14.5); RDW Standard Deviation 39.9 fL (36.4-46.3); Red Blood Count 3.86 M/uL (4.20-5.40); White Blood Count 8.75 K/ul (4.8-10.8)
[2023-12-08 06:34] LABS: Albumin Globulin Ratio 2.2 (0.9-2); Albumin Level 4.1 gm/dl (3.4-5.0); BUN Creatinine Ratio 19.4 (10-20); Bilirubin,Total 0.2 mg/dl (0.2-1.0); Calcium 8.9 mg/dl (8.6-10.3); Creatinine Clr Calc Pharmacy 85.8 ml/min; Est GFR (Non-African American) 101.8 ml/min; Globulin 1.9 gm/dl (2.5-4.0); Magnesium 2.1 mg/dl (1.7-2.4); Phosphorus 3.1 mg/dl (2.5-4.9); Potassium 3.2 mmol/L (3.5-5.1)
[2023-12-08] MEDS: POTASSIUM CHLORIDE CRTAB 20 MEQ TABCR PO STA (10:58)
--- NOTE | 2023-12-08 12:54 | Discharge Summary ---
Discharge Summary Date of Service December 08, 2023 Admission HPI Per Admitting Provider This is a 53-year-old female who has a significant past medical history of relapsing remitting MS, seizure disorder, arnold chiari malformation, essential tremors, history of migraine and RLS who presents to ED due to concern for possible MS flare. "I think I'm having a flare." She has had 3 previous flares. Her symptoms have been off and on the last few weeks. 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 She was last seen 11/26 from [facility] neurology in [place]. She was ordered an MRI of brain and cervical spine. She was unable to get MRI because someone canceled it. She has a chronic right facial droop and she feels it is worse. She also c/o Left leg weakness that is worse than normal. She also has left sided arm weakness. She denies difficulty chewing or swallowing. She does have redness to her face and she felt feverish. She denies lightheaded, dizziness, chest pain, sob, n/v/d, abd pain, change in bowel or urinary habits. Last week she had a week worth of diarrhea, but this has since resolved. She is complaining of pain where her dentures are rubbing. The dentures are tight. In ED patient remained hemodynamically stable. Head CT was negative for any acute abnormality. Evidence of prior suboccipital craniectomy. Principal Dx & Hospital Course #1 = Principal Diagnosis (1) Multiple sclerosis: (2) Facial droop: (3) History of seizure: Plan This is a 53-year-old female who has a significant past medical history of relapsing remitting MS, seizure disorder, arnold chiari malformation, essential tremors, history of migraine and RLS who presented to the ED due to concern for possible MS flare. Multiple Sclerosis Facial Droop Foot Drop Pt with hx of MS, follows with [facility] currently Dr Samantah Price Current treatment with Ocrevus, states she is due soon for a dose Believes her symptoms are consistent with an MS flare Lyme and tick borne testing pending Respiratory biofire negative UA not suggestive of infection Chest XR with no acute changes Blood Cx x2 NGTD Head CT unremarkable Brain MR noting scattered chronic MS plaques and no active demyelination Cervical spine MRI-no evidence of demyelination MRI thoracic spine unremarkable Received 1g Solumedrol x 1 on admission Neurology was consulted-appreciate recs -recommending high dose IV steroids for 5 days max Facial droop and foot drop currently improving PT/OT- appreciate recs Daytime Fatigue Continue provigil Hx of seizures Hx of migraines continue topamax for seizures Continue topamax, nortriptyline and propranolol for migraine prevention Essential Tremor Continue propanolol RLS continue requip GERD Continue ppi Diet: regular DVT ppx: SQ lovenox FULL CODE Dispo: PT recommending outpt PT after d/c Discharge Exam General: Alert, oriented. No acute distress Skin: No noted rashes or bruises Psych: Appropriate mood and affect Neuro: improved facial droop, foot drop HEENT: NC/AT Chest: Nontender to palpation. CV: RRR, Normal s1, s2. No murmurs appreciated Resp: Breath sounds clear bilaterally, no increased effort of breathing. Abdomen:Soft, nontender, nondistended. No guarding. No organomegaly appreciated. Extremities: Left foot drop Updated Medication List Medication Instructions Recorded Confirmed Type cholecalciferol (vitamin D3) 50 50 mcg PO QAM 03/02/23 12/04/23 History mcg (2,000 unit) tablet cyanocobalamin (vitamin B-12) 1,200 mcg sublingual QAM 03/02/23 12/04/23 History 5,000 mcg/mL sublingual drops (Vitamin B-12) loratadine 10 mg tablet (Claritin) 10 mg PO QAM 03/02/23 12/04/23 History modafinil 100 mg tablet 100 mg PO QAM 03/02/23 12/04/23 History ocrelizumab 30 mg/mL intravenous 0 mg IV .EVERY 6 MONTHS 03/02/23 12/04/23 History solution (Ocrevus) omeprazole 40 mg capsule,delayed 40 mg PO QAM 03/02/23 12/04/23 History release prenat.vits,adolph,kzs-pgiw-hbbwm 1 tab PO QAM 03/02/23 12/04/23 History ropinirole 2 mg tablet 2 mg PO UD 03/02/23 12/04/23 History sumatriptan succinate 50 mg tablet 50 mg PO UD PRN Migraine Headache 03/02/23 12/04/23 History topiramate 200 mg tablet 200 - 400 mg PO UD 03/02/23 12/04/23 History Medical Marijuana 1 dose PO UD PRN anxiety, pain 03/22/23 12/04/23 History Turmeric-Curcumin 2 tab PO QAM Fatigue 03/22/23 12/04/23 History krill oil 500 mg capsule 2,500 mg PO DAILY 11/28/23 12/04/23 History vitamin E 670 mg (1,000 unit) 0 mg PO DAILY 11/28/23 12/04/23 History capsule Apple Cider Gummies 500mg 1,000 mg PO DAILY 12/04/23 12/04/23 History Probiotic Powder Pkg 1 packet PO DAILY 12/04/23 12/04/23 History biotin 10,000 mcg capsule 10,000 mcg PO DAILY 12/04/23 12/04/23 History epinephrine 0.3 mg/0.3 mL 0.3 mg IM DIRECTED PRN 12/04/23 12/04/23 History injection, auto-injector .allergic reaction magnesium glycinate 100 mg tablet 400 mg PO HS 12/04/23 12/04/23 History nortriptyline 10 mg capsule 10 mg PO HS 12/04/23 12/04/23 History promethazine 6.25 mg/5 mL oral 6.25 mg PO DIRECTED PRN Nausea 12/04/23 12/04/23 History syrup propranolol 10 mg tablet 10 mg PO DAILY 12/04/23 12/04/23 History Hospital Stay Data Consultations 12/04/23 17:13 ED Decision to Admit Stat 12/04/23 17:33 Consult Neurology Routine Diagnostic Imagining Performed 12/04/23 14:51 CT head/brain wo con Stat 12/04/23 17:32 MR cervical spine wo/w con Routine MRI Brain [MR brain wo/w con] Routine 12/05/23 15:57 MR thoracic spine wo/w con Routine Pending Results Patient Have Any Pending Studies at Discharge: No Discharge Instructions Given to Patient (Per Discharging Provider) Ms. Rwandan, You were admitted and treated for an MS Flare with IV steroids. Your symptoms improved. Please keep close follow up with you primary care provider and Neurologist Dr Price after discharge. Please keep close follow up with your primary care provider after discharge. Please do not hesitate to come back to the emergency room if your symptoms worsen or return. It was a pleasure taking care of you while you were here.
== END 2023-12-08 17:48 | disposition home or self-care (01) | DRG 60 ==
LOC: ED 10:17 → EDINP 17:52 → SUATTDRO 17:52 → 2N 19:01

== ENCOUNTER 2024-09-17 17:56 | Observation (INO) ==
[2024-09-17] MEDS: KETOROLAC TROMETHAMINE 15 MG/ML VIAL IV ONE (20:18)
[2024-09-17 20:30] LABS: Basophils # (auto) 0.03 K/uL (0.00-0.20); Basophils % (auto) 0.4 %; Eosinophils # (auto) 0.03 K/uL (0.00-0.50); Eosinophils % (auto) 0.4 %; Hematocrit (blood only) 44.7 % (37.0-47.0); Hemoglobin 15.7 g/dl (12.0-16.0); Immature Granulocytes # (auto) 0.01 K/uL (0.01-0.20); Immature Granulocytes % (auto) 0.1 %; Lymphocytes # (auto) 2.55 K/uL (1.20-3.40); Lymphocytes % (auto) 36.6 %; Mean Corpuscular Hemoglobin 32.1 pg (25.0-34.0); Mean Corpuscular Hgb Conc 35.1 g/dL (32.0-36.0); Mean Corpuscular Volume 91.4 fL (80.0-100.0); Mean Platelet Volume 10.4 fL (9.4-12.4); Monocytes # (auto) 0.56 K/uL (0.11-0.59); Neutrophils # (auto) 3.79 K/uL (1.40-6.50); Neutrophils % (auto) 54.5 %; Platelet Count 322 K/uL (130-400); RDW Coefficient of Variation 11.8 % (11.5-14.5); RDW Standard Deviation 39.4 fL (36.4-46.3); Red Blood Count 4.89 M/uL (4.20-5.40); White Blood Count 6.97 K/ul (4.8-10.8)
[2024-09-17 20:48] LABS: Albumin Level 5.5 gm/dl (3.4-5.0); BUN Creatinine Ratio 11.3 (10-20); Bilirubin,Total 0.4 mg/dl (0.2-1.0); Calcium 10.5 mg/dl (8.6-10.3); Potassium 3.5 mmol/L (3.5-5.1)
[2024-09-17] MEDS ORDERED: methylPREDNISolone 10 mg/mL (For Ped Dose < 7mg) IV STA (20:53)
--- NOTE | 2024-09-17 21:11 | Emergency Department Note ---
Impression & Plan Multiple sclerosis, Facial droop ED Provider Note NAME: TIP GLORIA AGE: 53 SEX: F : 1970 ARRIVES VIA: Walk-In INFORMANT: Patient, ED PROVIDER(S): Tanesha Trejo MD CHIEF COMPLAINT: MS flare HPI: This is a 53-year-old female presenting for MS flare. Patient history of MS previously and she states that this is presenting similarly. She notes that she begins having left lower extremity weakness as well as right facial droop. She has no trouble with upper extremities. She notes slight pain in her back going down her leg as well. She notes that she is able to walk at this time. She notes no bowel or bladder incontinence. No nausea vomiting. Does have previous history of diarrhea for which she sees GI ROS: See above HPI for pertinent positives & negatives. A total of 10 systems reviewed and were otherwise negative. PAST MEDICAL HISTORY: See Below PAST SURGICAL HISTORY: See Below FAMILY HISTORY: See Below SOCIAL HISTORY: See Below HOME MEDICATIONS: See Below ALLERGIES: See Below VITALS: See Below PHYSICAL EXAMINATION: General: resting comfortably in no acute distress Head: Normocephalic and atraumatic Eyes: Normal inspection, extraocular muscles intact Ear, nose, throat: Normal external exam Neck: Normal range of motion Respiratory: lungs clear to auscultation bilaterally Cardiovascular: Regular rate/rhythm, no murmur GI: soft, nontender, no guarding or rebound Extremities: nontender, moves all extremities Neuro: The patient awake and alert, appropriately conversive, right-sided facial droop, left lower extremity weakness, 2/5 Skin: Warm, dry, and intact MEDICAL DECISION MAKING: This is a 53-year-old female presenting for possible MS flare. Patient has had previous etiology of such. I have reviewed outside records and previous admissions/discharges that do show similar etiology. She has gotten IV steroids previously for this. Will initiate dose here and get basic blood work. She has stable findings and had previous CT imaging and MRIs. -Bloodwork is reviewed showing no significant leukocytosis, anemia, electrolyte or creatinine abnormality -Care discussed with Dr. Shearer, for admission of her MS flare Differential diagnosis: MS flare, stroke, Olivera's palsy Independent History obtained from: Diagnostics interpreted by me: ECG: None Cardiac Monitoring: An order was placed for continuous cardiac monitoring. The monitor shows a rate of 82 with sinus rhythm. Past Med/Surg History Problem List (Updated 09/18/24 @ 01:32 by Tanesha Trejo MD) Nausea & vomiting Diarrhea Encounter for pre-operative examination Multiple sclerosis (Acute) Facial droop (Acute) Dental caries (Acute) Cholelithiasis Biliary colic symptom Depression History of seizure Medical History Facial droop chronic- right sided- recently worsened during [facility] admission for dental infection History of skin cancer removed from arm and face Depression History of COVID-19 08/2020, PCP office test at [facility], not hosp; sick for 1 month>resolved. Arnold-Chiari malformation 2012>[facility] [place]>had Chiari Malformation Deformation procedure, no seizures since procedure. History of epilepsy most recent seizure 2012; f/u dr. 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 hameed, [facility] Back problem hx Skin cancer Surgical History Hx laparoscopic cholecystectomy (04/05/23) Laparoscopic Cholecystectomy(Not Applicable) - Karly Maradiaga, DO Hx of rotator cuff surgery lt. Hx of tubal ligation Hx of dilation and curettage Hx of hysterectomy History of open reduction and internal fixation (ORIF) procedure lt. ankle History of bladder surgery bladder sling Hx of appendectomy H/O colonoscopy (03/11/23) H/O esophagogastroduodenoscopy (03/11/23) Family History Mother Breast cancer Cancer Stroke Uncle Diabetes Father Heart disease Stroke Grandfather (Paternal) Heart disease Social History Smoking Status: Former smoker Tobacco Type: Cigarettes Second Hand Exposure: Yes (hx-family smoked); Do You Dip or Chew Tobacco: No; Hx Alcohol Use: No Hx Substance Use: No Preferred Language: Slovak Communication Ability: Effective Visual Impairment: No Limitations Osteopathic Medicine Teacher Required: No Beliefs That Will Affect Care: None marital status: Current Living Situation: Other Current Living Situation Comment: roomate current occupational status: disabled How many Children do You have: 2 Feels Safe at Home: Yes Diet: gluten free, vegan and vegetarian during the past year weight has: decreased > 10 lbs Assistive Devices: Cane and Walker Allergies Allergies Allergy/AdvReac Type Severity Reaction Status Date / Time adhesive tape Allergy Unknown red bumps Verified 09/15/24 13:01 appear instantly, itching cephalexin Allergy Unknown chest Verified 09/15/24 13:01 tightness ciprofloxacin Allergy Unknown legs Verified 09/15/24 13:01 swelling, rash diazepam Allergy Unknown Vomiting Verified 09/15/24 13:01 latex Allergy Unknown red bumps Verified 09/15/24 13:01 appear instantly, itching red dye Allergy Unknown Rash Verified 09/15/24 13:01 Home Meds Home Medications Medication Instructions Recorded Confirmed ascorbic acid (vitamin C) 500 mg 500 mg PO DAILY 09/17/24 09/17/24 chewable tablet biotin 2,500 mcg capsule 2,500 mcg PO DAILY 09/17/24 09/17/24 cholecalciferol (vitamin D3) 50 50 mcg PO DAILY 09/17/24 09/17/24 mcg (2,000 unit) tablet (Vitamin D3) cyanocobalamin (vitamin B-12) 500 500 mcg PO DAILY 09/17/24 09/17/24 mcg tablet modafinil 100 mg tablet 100 mg PO DAILY 09/17/24 09/17/24 nortriptyline 10 mg capsule 10 mg PO HS 09/17/24 09/17/24 ofatumumab 20 mg/0.4 mL 20 mg subcut MONTHLY 09/17/24 09/17/24 subcutaneous pen injector (Kesimpta Pen) propranolol 10 mg tablet 10 mg PO DAILY 09/17/24 09/17/24 ropinirole 2 mg tablet 2 mg PO BID 09/17/24 09/17/24 sumatriptan succinate 50 mg tablet 50 mg PO DAILY PRN headaches 09/17/24 09/17/24 topiramate 200 mg tablet 200 mg PO UD 09/17/24 09/17/24 Results & Data (ED) Vital Signs Vital Signs - 24 hr 09/17/24 17:58 09/17/24 18:14 09/17/24 18:18 Temperature 36.7 C 37.1 C Temperature Source Temporal Artery Scan Oral Pulse Rate 108 H 96 H Pulse Rate [Apical] 93 H Respiratory Rate 18 20 Respiratory Effort / Characteristics Non-Labored Non-Labored Spontaneous Respiratory Depth Normal Normal Respiratory Pattern Regular Regular Blood Pressure 150/87 H Blood Pressure [Right Arm] 136/105 H Blood Pressure Mean 108 Blood Pressure Mean [Right Arm] 115 Blood Pressure Position [Right Arm] Pulse Oximetry 99 99 Oxygen Delivery Method Room Air Room Air Sepsis Recent Fever Within 48 Hours No Sepsis New/Unexplained Change in Mental Status N/A Sepsis Action Taken by Nursing No Action Required 09/17/24 20:00 09/17/24 20:11 09/17/24 21:06 Temperature Temperature Source Pulse Rate Pulse Rate [Apical] 124 H 82 86 Respiratory Rate 11 L 16 Respiratory Effort / Characteristics Non-Labored Spontaneous Non-Labored Spontaneous Respiratory Depth Normal Normal Respiratory Pattern Regular Regular Blood Pressure Blood Pressure [Right Arm] 142/108 H Blood Pressure Mean Blood Pressure Mean [Right Arm] 119 Blood Pressure Position [Right Arm] Semi-fowlers Pulse Oximetry 100 96 Oxygen Delivery Method Room Air Room Air Sepsis Recent Fever Within 48 Hours Sepsis New/Unexplained Change in Mental Status Sepsis Action Taken by Nursing Laboratory Data 09/17/24 20:05 09/17/24 20:05 Lab Results 09/17/24 Range/Units 20:05 WBC 6.97 (4.8-10.8) K/ul RBC 4.89 (4.20-5.40) M/uL Hgb 15.7 (12.0-16.0) g/dl Hct 44.7 (37.0-47.0) % MCV 91.4 (80.0-100.0) fL MCH 32.1 (25.0-34.0) pg MCHC 35.1 (32.0-36.0) g/dL RDW Std Deviation 39.4 (36.4-46.3) fL RDW Coeff of Pina 11.8 (11.5-14.5) % Plt Count 322 (130-400) K/uL MPV 10.4 (9.4-12.4) fL Immature Gran % (Auto) 0.1 % Neut % (Auto) 54.5 % Lymph % (Auto) 36.6 % Martin % (Auto) 8.0 % Eos % (Auto) 0.4 % Baso % (Auto) 0.4 % Neut # (Auto) 3.79 (1.40-6.50) K/uL Lymph # (Auto) 2.55 (1.20-3.40) K/uL Martin # (Auto) 0.56 (0.11-0.59) K/uL Eos # (Auto) 0.03 (0.00-0.50) K/uL Baso # (Auto) 0.03 (0.00-0.20) K/uL Immature Gran # (Auto) 0.01 (0.01-0.20) K/uL Sodium 139 (136-145) mmol/L Potassium 3.5 (3.5-5.1) mmol/L Chloride 104 (98-107) mmol/L Carbon Dioxide 23 (21-32) mmol/L Anion Gap 12 H (3-11) BUN 9 (6-23) mg/dl Creatinine 0.80 (0.6-1.2) mg/dl Est Cr Clr Drug Dosing 70.0 ml/min eGFR 89.15 BUN/Creatinine Ratio 11.3 (10-20) Glucose 92 (70-99(Fasting)) mg/dl Calcium 10.5 H (8.6-10.3) mg/dl Total Bilirubin 0.4 (0.2-1.0) mg/dl Direct Bilirubin 0.0 (0-0.2) mg/dl AST 15 (13-39) U/L ALT 13 (7-52) U/L Alkaline Phosphatase 76 (34-104) U/L Total Protein 8.0 (6.0-8.3) gm/dl Albumin 5.5 H (3.4-5.0) gm/dl Administered Medications Sodium Chloride (Nss) 1,000 mls @ 80 mls/hr IV .[id number] PORTER Stop: 09/18/24 13:17 Last Admin: 09/18/24 01:07 Dose: 80 mls/hr Documented By: EUN Discontinued Medications Methylprednisolone 1,000 mg/ (Sodium Chloride) 266 mls @ 266 mls/hr IV NOW STA Stop: 09/17/24 22:01 Last Infusion: 09/17/24 23:01 Dose: Infused Documented By: Admin: 09/17/24 21:48 Dose: 266 mls/hr Documented By: TON Ketorolac Tromethamine (Ketorolac Tromethamine 15 Mg/Ml Vial) 15 mg IV NOW ONE Stop: 09/17/24 19:57 Last Admin: 09/17/24 20:18 Dose: 15 mg Documented By: TON Discharge Plan Visit Data Chief Complaint: Back Injury/Pain Stated Complaint: EXASPERATION, BACK PAIN DOWN TO THE LEG ED Provider: Tanesha Trejo Discharge Problem: Multiple sclerosis, Facial droop Discharge Instructions Interventions: ED Discharge Assessment Last Done: 09/18/24 00:49
[2024-09-17] MEDS: methylPREDNISolone 1,000 MG in NSS 250 ML IV STA (21:48)
[2024-09-18] MEDS ORDERED: POLYETHYLENE (MIRALAX) 17 GM PACK PO PRN (00:48)
[2024-09-18] MEDS ORDERED: NITROGLYCERIN SL 0.4 MG/TAB TAB SL PRN (00:48)
[2024-09-18] MEDS: SODIUM CHLORIDE 0.9% 1,000 ML IV SCH (01:07)
[2024-09-18] MEDS: ACETAMINOPHEN 325 MG TAB PO PRN (03:07)
[2024-09-18 05:08] LABS: Basophils # (auto) 0.01 K/uL (0.00-0.20); Basophils % (auto) 0.3 %; Hematocrit (blood only) 37.6 % (37.0-47.0); Hemoglobin 13.2 g/dl (12.0-16.0); Immature Granulocytes # (auto) 0.01 K/uL (0.01-0.20); Immature Granulocytes % (auto) 0.3 %; Lymphocytes # (auto) 0.32 K/uL (1.20-3.40); Lymphocytes % (auto) 9.7 %; Mean Corpuscular Hemoglobin 32.4 pg (25.0-34.0); Mean Corpuscular Hgb Conc 35.1 g/dL (32.0-36.0); Mean Corpuscular Volume 92.2 fL (80.0-100.0); Mean Platelet Volume 10.3 fL (9.4-12.4); Monocytes # (auto) 0.03 K/uL (0.11-0.59); Monocytes % (auto) 0.9 %; Neutrophils # (auto) 2.93 K/uL (1.40-6.50); Neutrophils % (auto) 88.8 %; Platelet Count 272 K/uL (130-400); RDW Coefficient of Variation 11.7 % (11.5-14.5); RDW Standard Deviation 39.1 fL (36.4-46.3); Red Blood Count 4.08 M/uL (4.20-5.40)
[2024-09-18 05:22] LABS: BUN Creatinine Ratio 13.2 (10-20); Calcium 9.1 mg/dl (8.6-10.3); Creatinine Clr Calc Pharmacy 74.1 ml/min; Magnesium 1.9 mg/dl (1.7-2.4); Potassium 4.1 mmol/L (3.5-5.1)
--- NOTE | 2024-09-18 05:59 | History & Physical Report ---
Date of Service September 17, 2024 Assessment & Plan (1) Exacerbation of multiple sclerosis: Plan: 53-year-old female with past medical history significant for hyperlipidemia, GERD, restless leg syndrome, history of left foot drop and left hemiparesis, weakness in the right side of the face, history of seizures, history of Arnold- Chiari malformation, history of multiple sclerosis, migraine, depression presents with right-sided facial droop and left lower extremity weakness going on for last 2 days. Patient says whenever she gets an MS flareup she gets right-sided facial droop and left lower extremity weakness. Symptoms started about 1 week ago but last couple of days has been more persistent and decided to come to the hospital. Has headache. And also some blurred vision in the right eye. No runny nose or sore throat. Has chronic cough and bringing up phlegm. Because of right facial droop and weakness having difficulty eating from the right side. Denies any chest pain or shortness of breath. No nausea. No abdominal pain. Having lot of diarrhea since gallbladder surgery. Hemodynamics are okay. Afebrile. MS flare Presents with right facial droop and left lower extremity weakness Similar presentation November 30, 2023 Received 1 g of Solu-Medrol in the ER Will consult neurology for further recommendations and imaging studies History of seizures On Topamax Restless leg syndrome Review History of migraines On sumatriptan as needed DVT prophylaxis SCDs for now Disposition Med/telemetry Full code. History of Present Illness Chief Complaint: Right facial droop and left lower extremity weakness Primary Care Provider: NO PCP 53-year-old female with past medical history significant for hyperlipidemia, GERD, restless leg syndrome, history of left foot drop and left hemiparesis, weakness in the right side of the face, history of seizures, history of Arnold- Chiari malformation, history of multiple sclerosis, migraine, depression presents with right-sided facial droop and left lower extremity weakness going on for last 2 days. Patient says whenever she gets an MS flareup she gets right-sided facial droop and left lower extremity weakness. Symptoms started about 1 week ago but last couple of days has been more persistent and decided to come to the hospital. Has headache. And also some blurred vision in the right eye. No runny nose or sore throat. Has chronic cough and bringing up phlegm. Because of right facial droop and weakness having difficulty eating from the right side. Denies any chest pain or shortness of breath. No nausea. No abdominal pain. Having lot of diarrhea since gallbladder surgery. Hemodynamics are okay. Afebrile. Past medical history. As mentioned above. Past surgical history. Right carpal tunnel surgery. Fibula nonunion repair internal fixation. Suboccipital craniectomy and cervical laminectomy. Ureteral stent. Appendectomy. Left shoulder manipulation. Total abdominal hysterectomy with removal of tubes. Social history. Quit smoking 2018. Quit vaping in 2021. 0.8 standard drinks of alcohol per week. No drug use. Family history. Mother had asthma. Breast cancer. COPD. Ovarian cancer. Father had diabetes. Heart disease. Seizures. Daughter has bipolar disorder. Maternal grandmother had MS/tremors/seizures. Aunt had MS. Allergies Allergy/AdvReac Type Severity Reaction Status Date / Time adhesive tape Allergy Unknown red bumps Verified 09/15/24 13:01 appear instantly, itching cephalexin Allergy Unknown chest Verified 09/15/24 13:01 tightness ciprofloxacin Allergy Unknown legs Verified 09/15/24 13:01 swelling, rash diazepam Allergy Unknown Vomiting Verified 09/15/24 13:01 latex Allergy Unknown red bumps Verified 09/15/24 13:01 appear instantly, itching red dye Allergy Unknown Rash Verified 09/15/24 13:01 Home Medications Medication Instructions Recorded Confirmed Type ascorbic acid (vitamin C) 500 mg 500 mg PO DAILY 09/17/24 09/17/24 History chewable tablet biotin 2,500 mcg capsule 2,500 mcg PO DAILY 09/17/24 09/17/24 History cholecalciferol (vitamin D3) 50 50 mcg PO DAILY 09/17/24 09/17/24 History mcg (2,000 unit) tablet (Vitamin D3) cyanocobalamin (vitamin B-12) 500 500 mcg PO DAILY 09/17/24 09/17/24 History mcg tablet modafinil 100 mg tablet 100 mg PO DAILY 09/17/24 09/17/24 History nortriptyline 10 mg capsule 10 mg PO HS 09/17/24 09/17/24 History ofatumumab 20 mg/0.4 mL 20 mg subcut MONTHLY 09/17/24 09/17/24 History subcutaneous pen injector (Kesimpta Pen) propranolol 10 mg tablet 10 mg PO DAILY 09/17/24 09/17/24 History ropinirole 2 mg tablet 2 mg PO BID 09/17/24 09/17/24 History sumatriptan succinate 50 mg tablet 50 mg PO DAILY PRN headaches 09/17/24 09/17/24 History topiramate 200 mg tablet 200 mg PO UD 09/17/24 09/17/24 History Past Med/Surg History Problem List (Updated 09/18/24 @ 07:46 by Garrison Shearer MD) Exacerbation of multiple sclerosis Nausea & vomiting Diarrhea Encounter for pre-operative examination Multiple sclerosis (Acute) Facial droop (Acute) Dental caries (Acute) Cholelithiasis Biliary colic symptom Depression History of seizure Medical History Facial droop chronic- right sided- recently worsened during [facility] admission for dental infection History of skin cancer removed from arm and face Depression History of COVID-19 08/2020, PCP office test at [facility], not hosp; sick for 1 month>resolved. Arnold-Chiari malformation 2012>[place]>had Chiari Malformation Deformation procedure, no seizures since procedure. History of epilepsy most recent seizure 2012; f/u dr. 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 Back problem hx Skin cancer Surgical History Hx laparoscopic cholecystectomy (04/05/23) Laparoscopic Cholecystectomy(Not Applicable) - Karly Maradiaga DO Hx of rotator cuff surgery lt. Hx of tubal ligation Hx of dilation and curettage Hx of hysterectomy History of open reduction and internal fixation (ORIF) procedure lt. ankle History of bladder surgery bladder sling Hx of appendectomy H/O colonoscopy (03/11/23) H/O esophagogastroduodenoscopy (03/11/23) Family History Mother Breast cancer Cancer Stroke Uncle Diabetes Father Heart disease Stroke Grandfather (Paternal) Heart disease Social History Smoking Status: Never smoker Tobacco Type: Cigarettes Second Hand Exposure: Yes (hx-family smoked); Do You Dip or Chew Tobacco: No; Hx Alcohol Use: Yes Alcohol type: wine Hx Substance Use: Yes Last Used Substance: Days (ago) Last Used Substance Other:: topical and pills 2-3 times per week Substance Use Type Other:: Medical Marijuana Preferred Language: [place] Communication Ability: Effective Visual Impairment: No Limitations Polisher Apprentice Required: No Beliefs That Will Affect Care: None marital status: Current Living Situation: Other Current Living Situation Comment: roommate current occupational status: disabled How many Children do You have: 2 Other Information That Helps Us Care for You: No Feels Safe at Home: Yes Safety Concerns: Feels Safe At This Time Diet: gluten free, vegan and vegetarian during the past year weight has: decreased > 10 lbs Assistive Devices: Brace/Splint/Immobilizer, Cane, Glasses and Walker Review of Systems Review of Systems: All systems reviewed & are unremarkable except as noted in HPI & below Physical Exam Physical Exam: General- Not in distress Head- atraumatic, Right facial droop seen Eyes- PERRL, EOMI, vision blurred in right eye ENT- oropharynx clear Neck- supple, no JVD. Lungs- clear to auscultation no wheezing or crackles Heart- regular rhythm; no murmur, no gallop. Abdomen- normal bowel sounds, soft, nontender, no distension Extremities- no pretibial edema, no erythema seen Neuro- alert, oriented PERRL, EOMI; right facial droop seen; no dysarthria; power 5/5 in all extremities except left lower extremity power 2/5. Results & Data Results & Data Vital Signs (Past 12 Hours) Vital Signs Temp Pulse Pulse Resp BP BP Pulse Ox 09/17/24 21:06 86 16 96 09/17/24 20:11 82 09/17/24 20:00 124 H 11 L 142/108 H 100 09/17/24 18:18 96 H 09/17/24 18:14 37.1 C 93 H 20 136/105 H 99 09/17/24 17:58 36.7 C 108 H 18 150/87 H 99 O2 Del Method 09/17/24 21:06 Room Air 09/17/24 20:11 09/17/24 20:00 Room Air 09/17/24 18:18 09/17/24 18:14 Room Air 09/17/24 17:58 Room Air Diagnostic Findings Laboratory Results WBC 3.30 K/ul (4.8-10.8) L 09/18/24 04:52 RBC 4.08 M/uL (4.20-5.40) L 09/18/24 04:52 Hgb 13.2 g/dl (12.0-16.0) 09/18/24 04:52 Hct 37.6 % (37.0-47.0) 09/18/24 04:52 MCV 92.2 fL (80.0-100.0) 09/18/24 04:52 MCH 32.4 pg (25.0-34.0) 09/18/24 04:52 MCHC 35.1 g/dL (32.0-36.0) 09/18/24 04:52 RDW Std Deviation 39.1 fL (36.4-46.3) 09/18/24 04:52 RDW Coeff of Pina 11.7 % (11.5-14.5) 09/18/24 04:52 Plt Count 272 K/uL (130-400) 09/18/24 04:52 MPV 10.3 fL (9.4-12.4) 09/18/24 04:52 Immature Gran % (Auto) 0.3 % 09/18/24 04:52 Neut % (Auto) 88.8 % 09/18/24 04:52 Lymph % (Auto) 9.7 % 09/18/24 04:52 [place] % (Auto) 0.9 % 09/18/24 04:52 Eos % (Auto) 0.0 % 09/18/24 04:52 Baso % (Auto) 0.3 % 09/18/24 04:52 Neut # (Auto) 2.93 K/uL (1.40-6.50) 09/18/24 04:52 Lymph # (Auto) 0.32 K/uL (1.20-3.40) L 09/18/24 04:52 [place] # (Auto) 0.03 K/uL (0.11-0.59) L 09/18/24 04:52 Eos # (Auto) 0.00 K/uL (0.00-0.50) 09/18/24 04:52 Baso # (Auto) 0.01 K/uL (0.00-0.20) 09/18/24 04:52 Immature Gran # (Auto) 0.01 K/uL (0.01-0.20) 09/18/24 04:52 Sodium 138 mmol/L (136-145) 09/18/24 04:52 Potassium 4.1 mmol/L (3.5-5.1) 09/18/24 04:52 Chloride 110 mmol/L (98-107) H 09/18/24 04:52 Carbon Dioxide 20 mmol/L (21-32) L 09/18/24 04:52 Anion Gap 8 (3-11) 09/18/24 04:52 BUN 10 mg/dl (6-23) 09/18/24 04:52 Creatinine 0.76 mg/dl (0.6-1.2) 09/18/24 04:52 Est Cr Clr Drug Dosing 74.1 ml/min 09/18/24 04:52 eGFR 94.81 09/18/24 04:52 BUN/Creatinine Ratio 13.2 (10-20) 09/18/24 04:52 Glucose 156 mg/dl (70-99(Fasting)) H 09/18/24 04:52 Calcium 9.1 mg/dl (8.6-10.3) 09/18/24 04:52 Magnesium 1.9 mg/dl (1.7-2.4) 09/18/24 04:52 Total Bilirubin 0.4 mg/dl (0.2-1.0) 09/17/24 20:05 Direct Bilirubin 0.0 mg/dl (0-0.2) 09/17/24 20:05 AST 15 U/L (13-39) 09/17/24 20:05 ALT 13 U/L (7-52) 09/17/24 20:05 Alkaline Phosphatase 76 U/L (34-104) 09/17/24 20:05 Total Protein 8.0 gm/dl (6.0-8.3) 09/17/24 20:05 Albumin 5.5 gm/dl (3.4-5.0) H 09/17/24 20:05 Code Status & VTE Plan VTE Prophylaxis Plan VTE Prophylaxis will be ordered: Yes
[2024-09-18] MEDS: ASCORBIC ACID 500 MG TAB PO SCH (08:01)
[2024-09-18] MEDS: TOPIRAMATE 100 MG TAB PO SCH ×2 (08:01→21:52)
[2024-09-18] MEDS: CYANOCOBALAMIN (B-12) 500 MCG TABLET PO SCH (08:01)
[2024-09-18] MEDS: rOPINIRole HCL 2 MG TABLET PO SCH (08:01)
[2024-09-18] MEDS: CHOLECALCIFEROL 25 MCG (1000 UNITS) TAB PO SCH (08:01)
[2024-09-18] MEDS: modafiniL 100 MG TAB PO SCH (08:03)
[2024-09-18] MEDS: PROPRANOLOL HCL 10 MG TAB PO SCH (08:07)
--- OUTSIDE RECORDS SUMMARY | 2024-09-18 09:14 | External Medical Summary | Summary of Care ---
Author Name Unknown Organization [facility] Address [address] [place] [address] Phone [phone] Care Team Providers Care Insulation Professional Name Role Phone Saundra Nicholson Primary Care Provider [phone] Reason for Referral * Precert (Within 10 days (routine)) - Pending Review Specialty Diagnoses / Procedures Referred By Contac t Referred To Contact Radiology Diagnoses Multiple sclerosis (HCC) Procedures MRI C SPINE W WO CONTRAST Sade Lugo PA-C [address] [place] [address] Phone: tel: fax: Referral ID Status Reason Start Date Expiration Date V isits Requested Visits Authorized [id number] Pending Review 12/16/2024 999 [id number] * Precert (Within 10 days (routine)) - Pending Review Specialty Diagnoses / Procedures Referred By Contac t Referred To Contact Radiology Diagnoses Multiple sclerosis (HCC) Procedures MRI BRAIN W WO CONTRAST Sade Lugo PA-C [address] [place] [address] Phone: tel: fax: Referral ID Status Reason Start Date Expiration Date V isits Requested Visits Authorized [id number] Pending Review 12/16/2024 999 [id number] Reason for Visit * Reason Onset Date Comments Advice 09/16/2024 Encounter Details Date Type Department Care Team (Late st Contact Info) Description 09/16/2024 Telephone Neurology [address] [place] [address] Services, Scheduling [address] [facility] [place] [address] Advice Allergies Active Allergy Reactions Criticality Noted Date Comments Adhesive Tape High Other reaction(s): welts Bee Venom 03/08/2023 Ciprofloxacin Hives 05/25/2013 Latex Hives 05/25/2013 Prednisone 12/14/2020 Other reaction(s): patient takes new drug for MS called Ocrevus steroids cause drug interactions seziures patient unable to have prednisone Red Dye #40 (Allura Red) Rash 05/03/2016 PATIENT REPORTS SHE WAS TESTED DUE TO RASH AND WAS TOLD SHE IS ALLERGIC TO RED #40 Valium 09/04/2013 BLACK VOMIT documented as of this encounter (statuses as of 09/17/2024) Medications Biotin 2500 MCG CAPS Take 5,000 mg by mouth. 0 Active Omeprazole 40 MG Oral Capsule Delayed Release (PriLOSEC) 1 Active Vitamin C 500 MG Oral Tablet Chewable Take 2,500 mg by mouth daily. Pt states Active B-12 500 MCG Oral Tablet Take by mouth. Two a day Active Loratadine 10 MG Oral Capsule Take 1 Capsule by mouth in the morning. Active Amoxicillin-Pot Clavulanate 875-125 MG Oral Tablet (Augmentin) 1 Tablet. 3 Active Apple Cider Vinegar 500 MG Oral Tablet DAILY IN THE MORNING 3 Active Pre- Formula Oral Tablet Take 1 Tablet by mouth in the morning. Active EpiPen 2-Suleiman 0.3 MG/0.3ML Injection Solution Auto-injectorIndi cations:Bee sting allergy For a severe reaction: Place orange end against the outer thigh, press firmly, hold in place for 10 seconds and go to the Emergency room. 2 Each 1 3 Active Floranex Oral TabletIndications :Dental infection,Abdomin al pain, generalized Take 1 Each by mouth daily. 30 Tablet 11 3 Active Lidocaine 5 % External Patch (Lidoderm)Indicat ions:Multiple sclerosis (HCC) Place 1 Patch over 12 hours topically on the skin daily. 30 Patch 5 4 Active Cholestyramine 4 GM Oral Packet (Questran) 4 Active Topiramate 200 MG Oral Tablet (topAMAX) TAKE ONE TABLET by mouth IN THE MORNING AND TWO tablets by mouth IN THE EVENING. 270 Tablet 3 4 Active Modafinil 100 MG Oral Tablet (Provigil)Indicat ions:Multiple sclerosis (HCC) Take 1 Tablet by mouth in the morning. 90 Tablet 4 Active SUMAtriptan Succinate 50 MG Oral Tablet (Imitrex) Take 1 tablet as needed. Repeat after 2 hours if needed. Max daily dose 2 per day, max 9 per month 9 Tablet 5 4 Active rOPINIRole HCl 2 MG Oral Tablet (Requip) Take 1 Tablet by mouth 2 times a day. 180 Tablet 3 4 Active Propranolol HCl 10 MG Oral Tablet (Inderal) Take 1 Tablet by mouth daily. 90 Tablet 3 4 Active Nortriptyline HCl 10 MG Oral Capsule (Pamelor)Indicati ons:Multiple sclerosis (HCC) Take 1 Capsule by mouth at bedtime. 90 Capsule 3 4 Active Vitamin D3 250 MCG (98547 UT) Oral Capsule Take 1 Capsule by mouth in the morning. Active Kesimpta 20 MG/0.4ML Subcutaneous Solution Auto-injector (Ofatumumab)Indic ations:Multiple sclerosis (HCC) Inject 20 mg under the skin every month. 0.4 mL 5 09/02/2024 1:41 PM EST 4 Active Kesimpta 20 MG/0.4ML Subcutaneous Solution Auto-injector (Ofatumumab)Indic ations:Multiple sclerosis (HCC) Inject 20 mg (1 pen) under the skin weeks 0, 1, and 2. Skip week 3, then start monthly injections week 4. 1.2 mL 07/02/2024 9:06 AM EDT 4 Active documented as of this encounter (statuses as of 09/17/2024) Active Problems Problem Noted Date Diagnosed Date Biliary colic symptom 04/30/2024 Cholelithiasis 04/30/2024 Depression 04/30/2024 Gastroesophageal reflux disease 04/30/2024 Food insecurity 03/11/2023 Overview: Per [facility] Protocol De Quervain's tenosynovitis, right 01/14/2020 Right carpal tunnel syndrome 01/14/2020 Rash and nonspecific skin eruption 06/14/2015 Left hemiparesis 06/13/2015 Facial droop 06/13/2015 Weakness on right side of face 06/13/2015 Chronic daily headache 09/04/2013 Migraine with aura 09/04/2013 Cervicalgia 09/04/2013 Titubation 06/08/2013 Headache 06/08/2013 Overview (12/21/2015): ICD-10 update of inactive term Headache 05/26/2013 Overview (12/21/2015): ICD-10 update of inactive term Nausea with vomiting 05/25/2013 Epileptic seizure 05/25/2013 Endometriosis 05/25/2013 Overview (05/26/2013): Diagnosed in 1997 Restless leg syndrome 05/25/2013 Hyperlipidemia 05/25/2013 Arnold-Chiari malformation 05/25/2013 Foot drop, left 05/25/2013 Overview (05/26/2013): Diagnosed 1 year ago Seizure disorder 05/25/2013 Overview (05/26/2013): Diagnosed in childhood 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 Multiple sclerosis 05/25/2013 Overview (05/26/2013): Diagnosed in 1999 documented as of this encounter (statuses as of 09/17/2024) Resolved Problems Problem Noted Date Diagnosed Date Resolved Date White matter disease 06/14/2015 018 Increased anion gap metabolic acidosis 06/14/2015 06/14/2015 Bug bites 06/14/2015 12/30/2017 documented as of this encounter (statuses as of 09/17/2024) Immunizations Name Administration Dates Next Due Pneumococcal Polysaccharide PPV23 (Pneumovax) Seasonal Influenza Vac., MDV, IM, 0.5 mL (Fluzon e) 06/15/2015 documented as of this encounter Social [...] money to get more. Sometimes true 02/2023 Utilities Answer Date Recorded Do you have trouble paying y our heating, water, or electric bill? (Adult - for ages 18 years and over) Not on file 03/17/2024 Is your family able to pay t he heat, water, or electric bill? (Household - for ages 0-17 years) Not on file 03/17/2024 Does your family have access to good internet? (Household - for ages 0-17 years) Not on file 03/17/2024 Social Connections Answer Date Recorded How often do you feel lonely or isolated from those around you? 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 Answer Date of Assessment Author No 10/10/2017 9:00 AM Zeb Giles ssa L, LINWO[place] * Are you blind or do you have serious difficulty seeing, even when wearing glasses? Answer Date of Assessment Author No 10/10/2017 9:00 AM EST Long, Zeb ssa L, LINWO[place] * Do you have serious difficulty walking or climbing stairs? (5 years old or older) Answer Date of Assessment Author Yes 10/10/2017 9:00 AM EST Long, Ezb ssa L, LINWOOD * Do you have difficulty dressing or bathing? (5 years old or older) Answer Date of Assessment Author No 10/10/2017 9:00 AM EST Long, Zeb ssa L, LINWO[place] * Because of a physical, mental, or emotional condition, do you have difficulty doing errands alone such as visiting a doctors office or shopping? (15 years old or older) Answer Date of Assessment Author No 10/10/2017 9:00 AM EST Long, Al yssa L, LINWOOD documented as of this encounter Mental Status * Because of a physical, mental, or emotional condition, do you have serious difficulty concentrating, remembering, or making decisions? (5 years old or older) Answer Entry Date Author No 10/10/2017 9:00 AM EST Long Zeb ssa L, LINWOOD documented in this encounter Miscellaneous Notes * Telephone Encounter - Marilee Meredith OSA - 09/16/2024 3:32 PM EST Neuroscience Phone Call Form- Requested Information from caller: Who is calling patient Provider patient is established with: Brittney What is the concern or issue they are having: Pts calling in stating that she normally gets her MRIin September and she was waiting for the order, But she also said she was just recently told that shehas an irritated paul her stomach and she has active lesions on her spine/tailbone area.She was asking if she should get the mri done through your order or if she should go to the hospital. How long has the issue been going on: n/a Any additional details to add: no Phone number for nurse to call back: [phone] Are forms needed? no Medication Refill? no Verify Pharmacy information is correct. Form to be used for established patients only (not new patients) Clinic has 24-48 hours to respond to caller. If caller is calling back before timeframe with any changes in condition/issues reported, update TEand re-route to appropriate pool If caller is calling back before timeframe- update TE- no need to re-route Peds Neurology Pool- Peds Neuro [place]- [id number] (All messages get sent to the [facility] Neurology Pool Numbers- [place] and [place] patients - follow normal process Ops req [facility] Neurology ([place])- [id number] Ops req NE Neurology ([place]- [facility] and [facility] clinics Only)- [id number] Neurosurgery Pool Numbers- [place] patients- follow normal process Ops req Neurosurgery [facility] ([place])- [id number] Ops req Neurosurgery [facility] ([place] Only) [id number] documented in this encounter Plan of Treatment Upcoming Encounters Date Type Department Care Team (Late st Contact Info) Description 01/06/2025 7:00 AM EDT Pharmacy Neurology Ferny [place], [place] [address] [place] [address] [place], Pharmacist Neurology [address] [facility] [place] [address] Scheduled Orders Name Type Priority Associated Diagnoses Orde r Schedule MRI BRAIN W WO CONTRAST Medical Imaging Routine Multiple sclerosis (HCC) Expected: 12/16/2024 (Approximate), Expires: 10/18/2025 MRI C SPINE W WO CONTRAST Medical Imaging Routine Multiple sclerosis (HCC) Expected: 12/16/2024 (Approximate), Expires: 10/18/2025 Health Maintenance Due Date Last Done Comments COVID-19 Vaccine (#1) 1977 Depression Monitoring 1984 Hepatitis B Vaccine (1 of 3 - 19+ 3-dose series) 1991 Zoster Vaccines (1 of 2) 1991 Pneumococcal Vaccine: Pediatrics (0 to 5 Years) and At-Risk Patients (6 to 64 Years) (2 of 2 - PCV) 06/15/2016 06/15/2015 Cologuard 2017 Fecal Occult Blood Test 2017 Sigmoidoscopy 2017 Influenza Vaccine (FLU shot) (#1) 2024 07/22/2020, 10/12/2019, 06/15/2015 Mammogram 11/20/2024 11/20/2023, /09/2023, 11/13/2023, Additional history exists Lipid Panel 05/24/2028 05/24/2023, 06/30, 03/27/2022, Additional history exists DTap/Tdap Vaccines (2 - Td or Tdap) 05/02/2030 05/02/2020 Colonoscopy 03/11/2033 03/11/2023 Colorectal Cancer Screening 03/11/2033 Hepatitis C Screening Completed 12/24/2017 HIV Screening Completed 05/23/2024 HPV (Gardasil) Vaccine Aged Out No lo nger eligible based on patient's age to complete this topic MENINGOCOCCAL (MENACTRA/MENVEO) Aged Out No longer eligible based on patient's age to complete this topic documented as of this encounter Medical Devices Implanted Type Area Box Stapler Device Identifier Shelf Expiration Date Model / Serial / Lot Graft Duramatrix Onlay 3x3 In - [id number] Implanted:Qty: 1 on 08/07/2013 at OR [facility] N/A: Spine Cervical COLLAGEN MATRIX 04/29/2015 [facility]33 / / [id number] documented as of this encounter Visit Diagnoses Diagnosis Multiple sclerosis (HCC)- Primary Multiple sclerosis documented in this encounter Advance Directives * Full Code (Latest Code Status on File) Date Activated Date Inactivated Comments 05/10/2016 9:58 AM 05/10/2016 4:44 PM This order r eflects the patients wishes and were consensually agreed upon. * Full Code Date Activated Date Inactivated Comments 02/06/2016 3:00 PM 02/06/2016 8:48 PM This order ref lects the patients wishes and were consensually agreed upon. * Full Code Date Activated Date Inactivated Comments 06/12/2015 11:49 PM 06/15/2015 6:33 PM This order reflects the patients wishes and were consensually agreed upon. Question Answer Comments Discussion of Advance Directives occurred with: Patient Does the patient have a Living Will? No Does the patient have Health Care Power of Attor keven? No * Full Code Date Activated Date Inactivated Comments 08/07/2013 11:47 AM 08/10/2013 9:02 PM This order reflects the patients wishes and were consensually agreed upon. Question Answer Comments Discussion of Advance Directives occurred with: Not Discussed * Full Code Date Activated Date Inactivated Comments 08/07/2013 5:37 AM 08/07/2013 11:47 AM This order reflects the patients wishes and were consensually agreed upon. Care Teams Insulation Professional Relationship Specialty Start Date End Date Saundra Nicholson CRNP [address] [place] [address] PCP - General Nurse Practitioner 04/10/21 documented as of this encounter
--- OUTSIDE RECORDS SUMMARY | 2024-09-18 09:14 | External Medical Summary | Summary of Care ---
Author Name Unknown Organization [facility] Address [address] [place] [address] Phone [phone] Care Team Providers Care Strap Machine Operator Automatic Name Role Phone Saundra Nicholson Primary Care Provider [phone] Reason for Referral * Precert (Within 10 days (routine)) - Pending Review Specialty Diagnoses / Procedures Referred By Contac t Referred To Contact Radiology Diagnoses Multiple sclerosis (HCC) Procedures MRI C SPINE W WO CONTRAST Sade Lugo PA-C [address] [place] [address] Phone: tel: fax: Referral ID Status Reason Start Date Expiration Date V isits Requested Visits Authorized [id number] Pending Review 12/16/2024 999 999 * Precert (Within 10 days (routine)) - Pending Review Specialty Diagnoses / Procedures Referred By Contac t Referred To Contact Radiology Diagnoses Multiple sclerosis (HCC) Procedures MRI BRAIN W WO CONTRAST Sade Lugo PA-C [address] [place] [address] Phone: tel: fax: Referral ID Status Reason Start Date Expiration Date V isits Requested Visits Authorized [id number] Pending Review 12/16/2024 999 999 Reason for Visit * Reason Onset Date Comments Advice 09/16/2024 Encounter Details Date Type Department Care Team (Late st Contact Info) Description 09/16/2024 Telephone Neurology [address] [place] [address] Services, Scheduling [address] [facility] [place] [address] Advice Allergies Active Allergy Reactions Criticality Noted [...] 3 4 Active Vitamin D3 250 MCG (80087 UT) Oral Capsule Take 1 Capsule by [...] 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 (5 years old or older) Answer Entry Date Author No 10/10/2017 9:00 AM EST Long, Zeb ssa L, LINWOOD documented in this [...] Phone number for nurse to call back: [phone] Are forms needed? no Medication Refill? no [...] to re-route Peds Neurology Pool- Peds Neuro [place]- [id number] (All messages get sent to the [facility]) Neurology Pool Numbers- [place] patients - follow normal process Ops req [facility] Neurology ([place])- [id number] Ops req NE Neurology ([place]- [facility] and [facility] clinics Only)- [id number] Neurosurgery Pool Numbers- [place] patients- follow normal process Ops req Neurosurgery [facility] ([place])- [id number] Ops req Neurosurgery [facility] ([place] Only) [id number] documented in this encounter Plan of Treatment Upcoming Encounters Date Type Department Care Team (Late st Contact Info) Description 01/06/2025 7:00 AM EDT Pharmacy Neurology Ferny Neville, [place] [address] [place] [address] [place], Pharmacist Neurology [address] [facility] [place] [address] Scheduled Orders Name Type [...] this encounter Medical Devices Implanted Type Area Educational Psychologist Device Identifier Shelf Expiration Date Model / Serial / Lot Graft Duramatrix Onlay 3x3 In - [id number] Implanted:Qty: 1 on 08/07/2013 at OR [facility] N/A: Spine Cervical COLLAGEN MATRIX 04/29/2015 [facility]33 / / [id number] documented as of this encounter Visit Diagnoses [...] and were consensually agreed upon. Care Teams Strap Machine Operator Automatic Relationship Specialty Start Date End Date Saundra Nicholson CRNP [address] [place] [address] PCP - General Nurse Practitioner 04/10/21 documented as of this encounter
[2024-09-18] MEDS: LORazepam 2 MG/1 ML VIAL IV STA (09:34)
[2024-09-18] MEDS: LOPERAMIDE HCL 2 MG CAP PO STA (09:34)
[2024-09-18] MEDS: GADOBUTROL 65ML VIAL IV ONE (10:58)
--- OUTSIDE RECORDS SUMMARY | 2024-09-18 11:02 | External Medical Summary | Summary of Care ---
Author Name Unknown Organization [facility] Address [address] [place] [address] Phone [phone] Care Team Providers Care Balance Sheet Analyst Name Role Phone Saundra Nicholson Primary Care Provider [phone] Reason for Referral * Evaluate & Treat - Unlimited Visits (Within 10 days (routine)) - Authorized Specialty Diagnoses / Procedures Referred By Valdez mulligan Referred To Contact Neuro/Ortho Surgery - Spine. / Neurological Surgery Diagnoses Lumbar back pain Bertolotti syndrome Brandy Adam CRNP [address] [place] [address] Phone: tel: fax: Referral ID Status Reason Start Date Expiration Date Visits Requested Visits Authorized [id number] Authorized Specialty Services Required 4 [phone] Question Answer Referral Priority Within 10 days (routine) Where should this appointment be scheduled? [facility] spine region: Back - Thoracic/Lumbar Do you have any recent complete loss of bladder or bowel function? 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 Answer Date of Assessment Author No 10/10/2017 9:00 AM Zeb Giles L, LINWOOD * Are you blind or do you have serious difficulty seeing, even when wearing glasses? Answer Date of Assessment Author No 10/10/2017 9:00 AM Zeb Giles, LINWOOD * Do you have serious difficulty walking or climbing stairs? (5 years old or older) Answer Date of Assessment Author Yes 10/10/2017 9:00 AM Zeb Giles, LINWOOD * Do you have difficulty dressing or bathing? (5 years old or older) Answer Date of Assessment Author No 10/10/2017 9:00 AM Zeb Giles ssa L, LINWOOD * Because of a physical, mental, or emotional condition, do you have difficulty doing errands alone such as visiting a doctors office or shopping? (15 years old or older) Answer Date of Assessment Author No 10/10/2017 9:00 AM Zeb Giles ssa L, LINWOOD documented as of this encounter Mental Status * Because of a physical, mental, or emotional condition, do you have serious difficulty concentrating, remembering, or making decisions? (5 years old or older) Answer Entry Date Author No 10/10/2017 9:00 AM Zeb Giles ssa L, LINWOOD documented in this encounter Plan of Treatment Upcoming Encounters Date Type Department Care Team (Late st Contact Info) Description 01/06/2025 7:00 AM EDT Pharmacy Neurology Jolene [address] [place] [address] [place], Pharmacist Neurology [address] [facility] [place] [address] Scheduled Referrals Name Type Priority Associated Diagnoses Orde r Schedule SPINE SURGERY REFERRAL OP Referral Within 10 days (routine) Lumbar back pain Bertolotti syndrome Ordered: 09/17/2024 Health Maintenance Due Date Last Done Comments [...] 2024 07/22/2020, 10/12/2019, 06/15/2015 Mammogram 11/20/2024 11/20/2023, 11/01, [...] this encounter Medical Devices Implanted Type Area Returned Goods Inspector Device Identifier Shelf Expiration Date Model / Serial / Lot Graft Duramatrix Onlay 3x3 In - [id number] Implanted:Qty: 1 on 08/07/2013 at OR [facility] N/A: Spine Cervical COLLAGEN MATRIX 04/29/2015 [facility]33 / / [id number] documented as of this encounter Visit Diagnoses Diagnosis Lumbar back pain- Primary Lumbago Bertolotti syndrome documented in this encounter Advance Directives * [...] and were consensually agreed upon. Care Teams Balance Sheet Analyst Relationship Specialty Start Date End Date Saundra Nicholson CRNP [address] [place] [address] PCP - General Nurse Practitioner 04/10/21 documented as of this encounter
--- NOTE | 2024-09-18 11:22 | Magnetic Resonance Report ---
MR brain MS wo/w con CLINICAL HISTORY: new neuro deficit/hx of MS TECHNIQUE: Multiplanar and multisequence MR images of the brain were obtained prior to and following administration of gadolinium contrast. Comparison: Comparison is made to MRI brain 12/04/2023 FINDINGS: No abnormal restricted diffusion is identified. Redemonstration of multiple bilateral T2 hyperintense right matter lesions, no definite new lesions are seen. No abnormal enhancement is seen. The ventric ular system is normal in appearance. No mass or abnormal enhancement is seen. There is no mass effect or midline shift. There is no evidence of acute intraparenchymal hemorrhage. No extra axial fluid co llections are seen. The corpus callosum, pituitary gland, and cerebellar tonsils appear grossly unrem arkable. Flow voids of the major intracranial arterial vessels are identified. The imaged portions of the para nasal sinuses, mastoid air cells, and orbits are unremarkable. IMPRESSION: Redemonstration of multiple T2 hyperintensities in the white matter compatible with MS plaques. No ev idence of active demyelination. ACT 112: Negative or not required by law. Electronically signed by: Tin Del Rio M.D. 09/18/2024 11:21 AM
[2024-09-18] MEDS ORDERED: methylPREDNISolone 1,000 MG in SYRINGE 0 ML IV SCH (13:30)
--- NOTE | 2024-09-18 13:30 | Hospitalist Progress Note ---
Date of Service September 18, 2024 Assessment & Plan (1) Exacerbation of multiple sclerosis: Plan: Neurology recommended continuing Solu-Medrol 1 g daily for 3 days. Patient already received the second dose today and will proceed with completing the treatment tomorrow, PT and OT will be ordered. (2) RLS (restless legs syndrome): Plan: Continue with Requip 2 mg p.o. twice daily. Plan Patient will be treated with Solu-Medrol 1 g daily for 2 more doses, expect treatment to be completed by tomorrow, review input by PT OT, likely discharge tomorrow, disposition depends on her therapy evaluation. Admission and Anticipated Discharge Date Admission Date: September 17, 2024 Subjective Patient is a 53-year-old female with history of hyperlipidemia, restless leg syndrome, with prior history of left-sided hemiparesis who came to the hospital with right facial paresis also she has prior history of multiple sclerosis and show she was admitted with impression of MS flare. MRI of the brain was done with MS protocol which did not show any active lesions, neurology recommended ongoing treatment with Solu-Medrol 1 g daily for 3 days, patient was seen and examined, clinically stable, on examination she does have right facial weakness, PT and OT were ordered. Continue with treatment. Physical Exam Physical Exam: VITALS: Reviewed. WEIGHT/BMI reviewed. GEN: Healthy appearing, well-developed, NAD. CV: RRR, no m/r/g. LUNGS: CTAB, no w/r/c. ABD: Soft, NT/ND, NBS, no masses or organomegaly. EXT: No clubbing, cyanosis, or edema. NEURO: Motor examination shows 3 out of 5 over left upper and lower extremities, on the right, 5/5 over the right lower extremity and upper extremity, on the right side of the face, she has right-sided weakness with facial droop, eyes were relatively intact. Results & Data Results & Data Vital Signs (Past 12 Hours) Vital Signs Temp Pulse Pulse Resp BP Pulse Ox O2 Del Method 09/18/24 11:34 36.4 C L 92 H 18 146/96 H 99 Room Air 09/18/24 08:08 125/85 09/18/24 08:00 63 09/18/24 07:51 36.5 C 85 18 92/64 L 95 Room Air 09/18/24 02:24 36.5 C 79 18 122/75 96 Room Air Laboratory Results Laboratory Results - last 24 hr 09/17/24 09/18/24 20:05 04:52 WBC 6.97 3.30 L RBC 4.89 4.08 L Hgb 15.7 13.2 Hct 44.7 37.6 MCV 91.4 92.2 MCH 32.1 32.4 MCHC 35.1 35.1 RDW Std Deviation 39.4 39.1 RDW Coeff of Pina 11.8 11.7 Plt Count 322 272 MPV 10.4 10.3 Immature Gran % (Auto) 0.1 0.3 Neut % (Auto) 54.5 88.8 Lymph % (Auto) 36.6 9.7 Ponce % (Auto) 8.0 0.9 Eos % (Auto) 0.4 0.0 Baso % (Auto) 0.4 0.3 Neut # (Auto) 3.79 2.93 Lymph # (Auto) 2.55 0.32 L Ponce # (Auto) 0.56 0.03 L Eos # (Auto) 0.03 0.00 Baso # (Auto) 0.03 0.01 Immature Gran # (Auto) 0.01 0.01 Sodium 139 138 Potassium 3.5 4.1 Chloride 104 110 H Carbon Dioxide 23 20 L Anion Gap 12 H 8 BUN 9 10 Creatinine 0.80 0.76 Est Cr Clr Drug Dosing 70.0 74.1 eGFR 89.15 94.81 BUN/Creatinine Ratio 11.3 13.2 Glucose 92 156 H Calcium 10.5 H 9.1 Magnesium 1.9 Total Bilirubin 0.4 Direct Bilirubin 0.0 AST 15 ALT 13 Alkaline Phosphatase 76 Total Protein 8.0 Albumin 5.5 H Diagnostic Findings Brain MRI 09/18/24 07:08 MR brain MS wo/w con CLINICAL HISTORY: new neuro deficit/hx of MS TECHNIQUE: Multiplanar and multisequence MR images of the brain were obtained prior to and following administration of gadolinium contrast. Comparison: Comparison is made to MRI brain 12/04/2023 FINDINGS: No abnormal restricted diffusion is identified. Redemonstration of multiple bilateral T2 hyperintense right matter lesions, no definite new lesions are seen. No abnormal enhancement is seen. The ventricular system is normal in appearance. No mass or abnormal enhancement is seen. There is no mass effect or midline shift. There is no evidence of acute intraparenchymal hemorrhage. No extra axial fluid collections are seen. The corpus callosum, pituitary gland, and cerebellar tonsils appear grossly unremarkable. Flow voids of the major intracranial arterial vessels are identified. The imaged portions of the paranasal sinuses, mastoid air cells, and orbits are unremarkable. IMPRESSION: Redemonstration of multiple T2 hyperintensities in the white matter compatible with MS plaques. No evidence of active demyelination. ACT 112: Negative or not required by law. Electronically signed by: Tin Del Rio M.D. 09/18/2024 11:21 AM Medications Administered Current Inpatient Medications Acetaminophen (Acetaminophen 325 Mg Tab) 650 mg PO Q4H PRN PRN Reason: Pain or Fever Stop: 10/18/24 00:47 Last Admin: 09/18/24 12:50 Dose: 650 mg Ascorbic Acid (Ascorbic Acid 500 Mg Tab) 500 mg PO DAILY [facility] Stop: 10/18/24 08:59 Last Admin: 09/18/24 08:01 Dose: 500 mg Cyanocobalamin (Cyanocobalamin (B-12) 500 Mcg Tablet) 500 mcg PO DAILY [facility] Stop: 10/18/24 08:59 Last Admin: 09/18/24 08:01 Dose: 500 mcg Modafinil (Modafinil 100 Mg Tab) 100 mg PO DAILY [facility] Stop: 10/18/24 08:59 Last Admin: 09/18/24 08:03 Dose: 100 mg Nitroglycerin (Nitroglycerin Sl 0.4 Mg/Tab Tab) 0.4 mg SL Q5M PRN PRN Reason: Chest Pain Stop: 10/18/24 00:47 Nortriptyline HCl (Nortriptyline Hcl 10 Mg Cap) 10 mg PO HS [facility] Stop: 10/18/24 20:59 Polyethylene Glycol (Polyethylene (Miralax) 17 Gm Pack) 17 gm PO DAILY PRN PRN Reason: Constipation Stop: 10/18/24 00:47 Propranolol HCl (Propranolol Hcl 10 Mg Tab) 10 mg PO DAILY [facility] Stop: 10/18/24 08:59 Last Admin: 09/18/24 08:07 Dose: 10 mg Ropinirole HCl (Ropinirole Hcl 2 Mg Tablet) 2 mg PO BID [facility] Stop: 10/18/24 08:59 Last Admin: 09/18/24 08:01 Dose: 2 mg Topiramate (Topiramate 100 Mg Tab) 200 mg PO QAM [facility] Stop: 10/18/24 08:59 Last Admin: 09/18/24 08:01 Dose: 200 mg Topiramate (Topiramate 100 Mg Tab) 400 mg PO PM [facility] Stop: 10/18/24 20:59 Vitamin D (Cholecalciferol 25 Mcg (1000 Units) Tab) 50 mcg PO DAILY [facility] Stop: 10/18/24 08:59 Last Admin: 09/18/24 08:01 Dose: 50 mcg
--- NOTE | 2024-09-18 14:42 | Neurology Consultation ---
Date of Consultation September 18, 2024 Assessment & Plan (1) Exacerbation of multiple sclerosis: Es Guaman is a 53 yo F presenting with an MS exacerbation, no new lesions seen on MRI. Reasonable to continue 1g of IV solumedrol x3 days. No taper. Can follow-up outpatient with her MS team. Telehealth Consultation Telehealth Information Telehealth Information: I performed this visit using a real-time telehealth connection between my location and the patients location ([facility]). After connecting through interactive tele-video, patient was identified by name and date of and/or wristband check.Patient (or authorized healthcare medical field representative) was informed that this was a telemedicine visit and it was being conducted confidentially over secure lines. My office door was closed and no one else was present in the room with me.Patient (or authorized healthcare medical field representative) provided consent to proceed with the visit, expressed an understanding of privacy and security of the telemedicine visit, and gave permission to have a hospital medical field representative in the room in order to assist with the visit and to conduct portions of the visit, as needed. I informed the patient (or authorized healthcare medical field representative) that I reviewed their record and presented the opportunity for them to ask any questions regarding the visit today. The patient agreed to participate. History of Present Illness Reason for Consultation: MS exacerbation Requesting Physician: Dr. Sylvesetr Attending Physician: Shari Sylvester MD History of Present Illness Es Guaman is a 53 yo F presenting with R facial weakness and L leg weakness she describes with flares of her MS in the past. She last had steroids a few months ago and was then started on DMT in June. She decided to come back to the hospital with only mild worsening of her symptoms to receive steroids and hopefully prevent worsening. Of note the MRI during the last hospitalization for exacerbation did not show any new lesions. No new symptoms today otherwise, she already feels better from the steroids received yesterday. Allergies Allergy/AdvReac Type Severity Reaction Status Date / Time adhesive tape Allergy Unknown red bumps Verified 09/15/24 13:01 appear instantly, itching cephalexin Allergy Unknown chest Verified 09/15/24 13:01 tightness ciprofloxacin Allergy Unknown legs Verified 09/15/24 13:01 swelling, rash diazepam Allergy Unknown Vomiting Verified 09/15/24 13:01 latex Allergy Unknown red bumps Verified 09/15/24 13:01 appear instantly, itching red dye Allergy Unknown Rash Verified 09/15/24 13:01 Home Medications Medication Instructions Recorded Confirmed Type ascorbic acid (vitamin C) 500 mg 500 mg PO DAILY 09/17/24 09/17/24 History chewable tablet biotin 2,500 mcg capsule 2,500 mcg PO DAILY 09/17/24 09/17/24 History cholecalciferol (vitamin D3) 50 50 mcg PO DAILY 09/17/24 09/17/24 History mcg (2,000 unit) tablet (Vitamin D3) cyanocobalamin (vitamin B-12) 500 500 mcg PO DAILY 09/17/24 09/17/24 History mcg tablet modafinil 100 mg tablet 100 mg PO DAILY 09/17/24 09/17/24 History nortriptyline 10 mg capsule 10 mg PO HS 09/17/24 09/17/24 History ofatumumab 20 mg/0.4 mL 20 mg subcut MONTHLY 09/17/24 09/17/24 History subcutaneous pen injector (Kesimpta Pen) propranolol 10 mg tablet 10 mg PO DAILY 09/17/24 09/17/24 History ropinirole 2 mg tablet 2 mg PO BID 09/17/24 09/17/24 History sumatriptan succinate 50 mg tablet 50 mg PO DAILY PRN headaches 09/17/24 09/17/24 History topiramate 200 mg tablet 200 mg PO UD 09/17/24 09/17/24 History Patient History Medical History Facial droop chronic- right sided- recently worsened during [facility] admission for dental infection History of skin cancer removed from arm and face Depression History of COVID-19 08/2020, PCP office test at [facility], not hosp; sick for 1 month>resolved. Arnold-Chiari malformation 2012>[place]>had Chiari Malformation Deformation procedure, no seizures since procedure. History of epilepsy most recent seizure 2012; f/u dr. 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 hameed, [facility] Back problem hx Skin cancer Surgical History Hx laparoscopic cholecystectomy (04/05/23) Laparoscopic Cholecystectomy(Not Applicable) - Karly Maradiaga DO Hx of rotator cuff surgery lt. Hx of tubal ligation Hx of dilation and curettage Hx of hysterectomy History of open reduction and internal fixation (ORIF) procedure lt. ankle History of bladder surgery bladder sling Hx of appendectomy H/O colonoscopy (03/11/23) H/O esophagogastroduodenoscopy (03/11/23) Family History Mother Breast cancer Cancer Stroke Uncle Diabetes Father Heart disease Stroke Grandfather (Paternal) Heart disease Social History Smoking Status: Never smoker Tobacco Type: Cigarettes Second Hand Exposure: Yes (hx-family smoked); Do You Dip or Chew Tobacco: No; Hx Alcohol Use: Yes Alcohol type: wine Hx Substance Use: Yes Last Used Substance: Days (ago) Last Used Substance Other:: topical and pills 2-3 times per week Substance Use Type Other:: Medical Marijuana Preferred Language: Estonian Communication Ability: Effective Visual Impairment: No Limitations Emergency Technician Required: No Beliefs That Will Affect Care: None marital status: Current Living Situation: Other Current Living Situation Comment: roommate current occupational status: disabled How many Children do You have: 2 Other Information That Helps Us Care for You: No Feels Safe at Home: Yes Safety Concerns: Feels Safe At This Time Diet: gluten free, vegan and vegetarian during the past year weight has: decreased > 10 lbs Assistive Devices: Brace/Splint/Immobilizer, Cane and Walker Review of Systems +R facial weakness, L leg weakness Results & Data Vital Signs (Past 12 Hours) Vital Signs Temp Pulse Pulse Resp BP Pulse Ox O2 Del Method 09/18/24 11:34 36.4 C L 92 H 18 146/96 H 99 Room Air 09/18/24 08:08 125/85 09/18/24 08:00 63 09/18/24 07:51 36.5 C 85 18 92/64 L 95 Room Air Laboratory Results Abnormal lab results 09/17/24 09/18/24 Range/Units 20:05 04:52 WBC 3.30 L (4.8-10.8) K/ul RBC 4.08 L (4.20-5.40) M/uL Lymph # (Auto) 0.32 L (1.20-3.40) K/uL [place] # (Auto) 0.03 L (0.11-0.59) K/uL Chloride 110 H (98-107) mmol/L Carbon Dioxide 20 L (21-32) mmol/L Anion Gap 12 H (3-11) Glucose 156 H (70-99(Fasting)) mg/dl Calcium 10.5 H (8.6-10.3) mg/dl Albumin 5.5 H (3.4-5.0) gm/dl Diagnostic Findings Brain MRI 09/18/24 07:08 MR brain MS wo/w con CLINICAL HISTORY: new neuro deficit/hx of MS TECHNIQUE: Multiplanar and multisequence MR images of the brain were obtained prior to and following administration of gadolinium contrast. Comparison: Comparison is made to MRI brain 12/04/2023 FINDINGS: No abnormal restricted diffusion is identified. Redemonstration of multiple bilateral T2 hyperintense right matter lesions, no definite new lesions are seen. No abnormal enhancement is seen. The ventricular system is normal in appearance. No mass or abnormal enhancement is seen. There is no mass effect or midline shift. There is no evidence of acute intraparenchymal hemorrhage. No extra axial fluid collections are seen. The corpus callosum, pituitary gland, and cerebellar tonsils appear grossly unremarkable. Flow voids of the major intracranial arterial vessels are identified. The imaged portions of the paranasal sinuses, mastoid air cells, and orbits are unremarkable. IMPRESSION: Redemonstration of multiple T2 hyperintensities in the white matter compatible with MS plaques. No evidence of active demyelination. ACT 112: Negative or not required by law. Electronically signed by: Tin Del Rio M.D. 09/18/2024 11:21 AM
[2024-09-18] MEDS: methylPREDNISolone 1,000 MG in NSS 250 ML IV SCH (15:35)
[2024-09-18] MEDS ORDERED: hydrOXYzine HCl 25 MG TAB PO STA (20:08)
--- NOTE | 2024-09-18 21:33 | Electrocardiogram Report ---
Test Reason : Blood Pressure : */* mmHG Vent. Rate : 85 BPM Atrial Rate : 85 BPM P-R Int : 176 ms QRS Dur : 138 ms QT Int : 426 ms P-R-T Axes : 59 12 107 degrees QTcB Int : 506 ms Normal sinus rhythm Left bundle branch block Abnormal ECG When compared with ECG of 02-Mar-2023 19:33, No significant change was found Confirmed by Brennon Aburto ([id number]) on 09/18/2024 9:33:07 PM Referred By: REFERRED SELF Confirmed By: Brennon Aburto
[2024-09-18] MEDS: hydrOXYzine HCl 25 MG TAB PO ONE (21:51)
[2024-09-18] MEDS: NORTRIPTYLINE HCL 10 MG CAP PO SCH (21:53)
[2024-09-19 03:53] VITALS: RESP 16
[2024-09-19 07:43] VITALS: BP 122/69; TEMP 98.1; O2SAT 98
--- NOTE | 2024-09-19 09:07 | Discharge Summary ---
Discharge Summary Date of Service September 19, 2024 Principal Dx & Hospital Course #1 = Principal Diagnosis (1) Exacerbation of multiple sclerosis: (2) RLS (restless legs syndrome): Notes For Next Care Provider Medication Changes From Visit Continue same previous home medications Admission HPI Per Admitting Provider Patient is a 53-year-old female with history of hyperlipidemia, restless leg syndrome, with prior history of left-sided hemiparesis who came to the hospital with right facial paresis also she has prior history of multiple sclerosis and show she was admitted with impression of MS flare. MRI of the brain was done with MS protocol which did not show any active lesions, neurology recommended ongoing treatment with Solu-Medrol 1 g daily for 3 days, patient was seen and examined, clinically stable, on examination she does have right facial weakness, PT and OT were ordered. Patient was seen and examined today, based on my discussion with neurology yesterday she will complete her third dose of Solu-Medrol today she has already achieved significant improvement, she does ambulate independently with no difficulty. On examination I found that she had good strength in both upper and lower extremities, on the right side of her face which was not her main issue she seems to be getting stronger. Overall she felt that she is doing well and she was agreeable with plan of going home after the completion of the third dose of Solu-Medrol. No further concern, we will proceed with discharging her after the medication. Discharge Exam VITALS: Reviewed. WEIGHT/BMI reviewed. GEN: Healthy appearing, well-developed, NAD. CV: RRR, no m/r/g. LUNGS: CTAB, no w/r/c. ABD: Soft, NT/ND, NBS, no masses or organomegaly. EXT: No clubbing, cyanosis, or edema. NEURO: Today she seems to be doing much better on the right side of her face, she has less droop, motor examination on the right and left upper and lower extremities were unchanged from yesterday. Updated Medication List Medication Instructions Recorded Confirmed Type ascorbic acid (vitamin C) 500 mg 500 mg PO DAILY 09/17/24 09/17/24 History chewable tablet biotin 2,500 mcg capsule 2,500 mcg PO DAILY 09/17/24 09/17/24 History cholecalciferol (vitamin D3) 50 50 mcg PO DAILY 09/17/24 09/17/24 History mcg (2,000 unit) tablet (Vitamin D3) cyanocobalamin (vitamin B-12) 500 500 mcg PO DAILY 09/17/24 09/17/24 History mcg tablet modafinil 100 mg tablet 100 mg PO DAILY 09/17/24 09/17/24 History nortriptyline 10 mg capsule 10 mg PO HS 09/17/24 09/17/24 History ofatumumab 20 mg/0.4 mL 20 mg subcut MONTHLY 09/17/24 09/17/24 History subcutaneous pen injector (Kesimpta Pen) propranolol 10 mg tablet 10 mg PO DAILY 09/17/24 09/17/24 History ropinirole 2 mg tablet 2 mg PO BID 09/17/24 09/17/24 History sumatriptan succinate 50 mg tablet 50 mg PO DAILY PRN headaches 09/17/24 09/17/24 History topiramate 200 mg tablet 200 mg PO UD 09/17/24 09/17/24 History Hospital Stay Data Consultations 09/17/24 21:27 ED Decision to Admit Stat 09/18/24 08:00 Consult Neurology Routine Diagnostic Imagining Performed 09/18/24 07:08 MR brain MS wo/w con Urgent Pending Results Patient Have Any Pending Studies at Discharge: No Discharge Instructions Given to Patient (Per Discharging Provider) No further recommendation Total Time Total Time Spent Total Time Spent (In Minutes): Less than 30 minutes
[2024-09-19 10:40] VITALS: PULSE 76
== END 2024-09-19 12:35 | disposition home or self-care (01) | DRG 60 ==
LOC: ED 17:56 → EDINP 21:32 → INTOOBSV 21:32 → 2N 09-18 00:49